=== PATIENT | male | born 1965 | race Caucasian/White ===

== ENCOUNTER → 2020-03-17 15:01 | Outpatient (POV) | payer MEDICARE, SELFPAY ==
[2020-03-17 15:14] VITALS: BP 184/99; PULSE 91; RESP 20; TEMP 36.5; O2SAT 99; BMI 38.9
--- NOTE | 2020-03-17 15:25 | HMH.PMCON ---
Assessment and Plan (1) Bilateral shoulder pain Status: Chronic Category: Medical Code(s): M25.511 - Pain in right shoulder; M25.512 - Pain in left shoulder - Assessment and plan all Dx Assessment and Plan for all problems:: Patient has had anterior intra-articular shoulder injections in the past and has gotten great relief. He does report that the previous injections that he got posteriorly did not give him any relief. We will schedule him for intra-articular shoulder injections bilaterally. He is having some numbness and tingling into his left arm. He does report a history of neuropathy, however. We will perform the injections bilaterally and if the patient does not get relief, he will likely need to undergo a MRI of his cervical spine. We will follow-up with him after his injection to reassess his symptoms. Patient cannot take anti-inflammatories due to an allergy to anti-inflammatories. He will continue with home stretching program. We will see him back in the clinic after his injection to reassess his symptoms. Risks and benefits of the procedure have been explained to the patient. Patient would like to proceed with the procedure. The patient and I specifically discussed risk factors for COVID19. These risks include, but are not limited to age greater than 60, heart or lung disease, diabetes, immunosuppression, and travel. We also discussed NSAIDs may worsen COVID19 infection or symptoms. Patient should not use NSAIDs to treat COVID19 signs or symptoms. Patient was also informed that any type of corticosteroid of any form (oral or injection) will decrease the patient's immune system response and may increase the likelihood of COVID19 infection [address] symptoms[address] Dr. Paredes has reviewed this note and agrees with this plan of care. This note was dictated using voice recognition software and make contain errors or omissions. HPI - Data of Consult Patient: new to practice Consult date: 03/17/20 Requesting Physician: Gabrielle Garcia APRN Primary Care Provider: Sadie Stapleton - Consult Narrative Reason for consult: Bilateral shoulder pain History of present illness: Mr. Alcantar is a 55 year old male who presents today for consultation for bilateral shoulder pain. Patient says he has had shoulder pain for years. He says that he did undergo injections that were performed anteriorly. He says that he got up to 90% relief with these injections. He says he was diagnosed with frozen shoulder syndrome at that time. Most recently, the patient did undergo bilateral intra-articular shoulder injections that were performed at Dr. Moffett's office. He says these injections were performed posteriorly. Patient says he did not get any relief, and in fact, says his pain worsened. He rates his pain a 9 out of 10 on the left shoulder. He does have right shoulder pain as well. He says he is having difficulty raising his arms. He is having some numbness and tingling into his left arm radiating into his hand. Patient is diabetic and does have a history of peripheral neuropathy. Patient says he is unsure if his numbness and tingling in his arm is related to neuropathy or if it is coming from his shoulder. He has not had an MRI of his cervical spine. He did have an x-ray of his shoulder. Patient was not noted to have any type of fracture or dislocation. He has tried physical therapy in the past along with a continued home stretching program. Patient is unable to take anti-inflammatories due to an allergy. CC: Gabrielle Garcia APRN [facility] History I have reviewed the patient's past medical history: Yes Medical History: Reports:: Diabetes Mellitus Type 2, Hypertension Denies:: Cancer, Diabetes Mellitus Type 1, MRSA *Have you ever received a pneumonia vaccine?: Yes *Have you received a flu vaccine this season?: No Other Surgeries: Yes: Other (left toe amputation, gangrene) Amputation: Yes Fractures: No - *Social History Smoking Status: Current
== END ==
PROVIDERS: PCP Family Medicine; Referring Provider Family Medicine; Visit Provider Clinical Nurse Specialist Family Health
DX: M25.511 Pain in right shoulder (principal); M25.512 Pain in left shoulder
CPT/HCPCS: 99202

== ENCOUNTER → 2020-04-04 13:46 | Day surgery (SDC) | payer MEDICARE, MEDICAID, SELFPAY ==
[2020-04-04 13:54] VITALS: BP 127/85; PULSE 92; RESP 18; TEMP 36.4; O2SAT 98; BMI 38.9
--- NOTE | 2020-04-04 14:24 | P.CONS_ITS ---
[facility] Pain Management SOAP Note Subjective:: Patient presented today for shoulder injections. However patient's current fingerstick blood sugar is 497. He has not taken his insulin today. I discussed with him that we would not move forward with his injection until it is his sugars under control. We will see him back and check his sugar again. Patient is agreeable [facility] History Medical History: Reports:: Congestive Heart Failure, Diabetes Mellitus Type 2, Hyperlipidemia, Hypertension Denies:: Cancer, Diabetes Mellitus Type 1, MRSA, Seizures *Have you ever received a pneumonia vaccine?: No *Have you received a flu vaccine this season?: No Other Medical History: Denies: Blood Transfusion Reaction Other Surgeries: Yes: Other (left toe amputation, gangrene) Amputation: Yes Fractures: No - *Social History Smoking Status: Current every day smoker Tobacco Type: cigarettes # Packs/Day (cigarettes): 1 Alcohol Intake: never *Occupational Status:: disabled Housing: house Household Members: spouse *Travel in the last 8 weeks: None Family Hx:: No significant family history
[2020-04-04 15:35] LABS: POC Glucose,Bedside 497 (70-110)
== END ==
PROVIDERS: PCP Family Medicine; Visit Provider Clinical Nurse Specialist Family Health
DX: Z53.09 Procedure and treatment not carried out because of other contraindication (principal); E11.65 Type 2 diabetes mellitus with hyperglycemia; Z79.4 Long term (current) use of insulin; Z79.84 Long term (current) use of oral hypoglycemic drugs; I11.0 Hypertensive heart disease with heart failure; I50.9 Heart failure, unspecified; E78.5 Hyperlipidemia, unspecified; Z72.0 Tobacco use; Z88.0 Allergy status to penicillin; Z88.1 Allergy status to other antibiotic agents; Z88.6 Allergy status to analgesic agent; Z88.8 Allergy status to other drugs, medicaments and biological substances
CPT/HCPCS: 20610; 82962

== ENCOUNTER 2020-04-08 13:14 | Day surgery (SDC) | payer MEDICARE, MEDICAID, SELFPAY ==
[2020-04-08 13:30] VITALS: BP 148/83; PULSE 92; RESP 18; TEMP 36.4; O2SAT 98; BMI 38.9
[2020-04-08 14:05] VITALS: BP 142/78; PULSE 85; RESP 18; O2SAT 98
[2020-04-08 14:05] LABS: POC Glucose,Bedside 147 (70-110)
[2020-04-08 14:06] VITALS: BP 138/85; PULSE 89; RESP 18; O2SAT 98
--- NOTE | 2020-04-08 14:07 | P.PCN_ITS ---
- Procedure Date: 04/08/20 Time: 14:07 Anesthesiologist:: Shmuel Paredes MD Complications:: None Pre-procedure Diagnosis:: Bilateral shoulder pain with degenerative osteoarthritis both shoulders Post-procedure Diagnosis:: Same Indications for Procedure:: This patient is a pleasant 55-year-old white male who we are treating for bilateral shoulder pain with degenerative osteoarthritis both shoulders. We will do bilateral intra-articular shoulder injections today with suprascapular nerve blocks to help him with his shoulder pain Procedure Details:: Bilateral shoulder injections intra-articular and bilateral suprascapular nerve block Informed consent was obtained and the risk and benefits of the procedure were explained to the patient. Both shoulders were prepped using ChloraPrep. A 25- gauge needle was used and we injected 10 mL bupivacaine 0.25% and Depo-Medrol 40 mg into the area of the suprascapular nerve and into the shoulder joint of each shoulder. We used a total of 80 mg Depo-Medrol for both shoulders. Patient tolerated the procedure well with no complications. Plan and Disposition:: We will follow-up with this patient 2 weeks. Will reevaluate symptoms at that time.
[2020-04-08 14:17] VITALS: BP 137/73; PULSE 88; RESP 20; O2SAT 98
== END 2020-04-08 14:18 | disposition home or self-care (01) ==
LOC: SC.PAINP 13:15
PROVIDERS: PCP Family Medicine; Visit Provider Anesthesiology
DX: M19.011 Primary osteoarthritis, right shoulder; M19.012 Primary osteoarthritis, left shoulder; I10 Essential (primary) hypertension; E11.9 Type 2 diabetes mellitus without complications; Z72.0 Tobacco use; M51.36 Other intervertebral disc degeneration, lumbar region; Z87.39 Personal history of other diseases of the musculoskeletal system and connective tissue; Z89.421 Acquired absence of other right toe(s); Z88.0 Allergy status to penicillin; Z88.1 Allergy status to other antibiotic agents; Z88.6 Allergy status to analgesic agent; Z79.4 Long term (current) use of insulin
CPT/HCPCS: 20610; 82962; J1030

== ENCOUNTER → 2020-04-26 15:01 | Outpatient (CLI) | payer MEDICARE, MEDICAID, SELFPAY ==
--- NOTE | 2020-04-26 15:24 | XR_ITS ---
PROCEDURE: XR FOOT WT BEARING RT 3V CLINICAL INDICATION: wound, diabetic Open wound COMPARISON: No exams were available for comparison FINDINGS: S/p amputation at the mid aspect of the 5th metatarsal. There is some cortical thickening involving the proximal phalanx of the 4th toe which may be due to an old fracture. No acute fracture or dislocation. No lytic or blastic change. The joint spaces are well-preserved. No significant degenerative/arthritic changes. No erosive changes evident. Other findings:None. IMPRESSION: Prior amputation at the 5th metatarsal with possible old fracture of the proximal phalanx of the 4th toe Dictated by: Jung Mary MD 04/26/2020 15:59 Jung Mary MD in [place] 04/26/2020 15:59
[2020-04-26 15:58] LABS: Basophils # 0.1 K/mm3 (0-0.2); Basophils % 0.5 % (0.1-2.0); Eosinophils # 0.2 K/mm3 (0.0-0.4); Eosinophils % 2.1 % (0.1-12.0); Hematocrit 49.2 % (42.0-52.0); Lymphocytes # 2.1 K/mm3 (0.7-4.5); Lymphocytes % 22.6 % (10-50); Mean Corpuscular HGB Conc 32.6 g/dL (31.8-35.4); Mean Corpuscular Hemoglobin 30.4 pg (27.0-31.2); Mean Corpuscular Volume 93.2 fl (80-94); Mean Platelet Volume 10.5 fl (7.4-10.4); Monocytes # 0.5 K/mm3 (0.1-1.0); Monocytes % 4.9 % (1.7-9.3); Neutrophils # 6.5 K/mm3 (1.8-7.8); Neutrophils % 69.9 % (37.0-80.0); Platelet Count 133 K/mm3 (142-424); Red Blood Count 5.28 M/mm3 (4.60-6.20); Red Cell Distribution Width 14.3 % (11.5-17.5); White Blood Count 9.3 K/mm3 (4.8-10.8)
[2020-04-26 16:04] LABS: Hemoglobin A1C 10.4 % (4.0-6.0)
[2020-04-26 16:45] LABS: Alanine Aminotransferase 18 U/L (12-78); Albumin Level 4.5 g/dl (3.5-5.0); Albumin/Globulin Ratio 1.3 (1.1-1.8); Alkaline Phosphatase 123 U/L (38-126); Anion Gap 16.7 mEq/L (5-15); Aspartate Amino Transferase 20 U/L (17-59); Bilirubin,Total 0.5 mg/dl (0.2-1.3); Blood Urea Nitrogen 31 mg/dl (9-20); Calcium 10.4 mg/dl (8.4-10.2); Carbon Dioxide 27 mmol/L (22.0-30.0); Chloride 99 mmol/L (98-107); Chol/HDL Ratio 4.9 (1-3.5); Cholesterol 257 mg/dl (140-200); Estimated Glomerular Filt Rate 63 ml/min (>60); GFR (African American) 76 ML/MIN (>60); Globulin 3.4 g/dL (1.3-3.2); Glucose 192 mg/dl (74-100); HDL Cholesterol 52 mg/dl (40-60); Potassium 4.7 mmoL/L (3.5-5.1); Sodium 138 mmol/L (136-145); Total Protein,Serum 7.9 g/dl (6.3-8.2); Triglycerides 194 mg/dl (30-150); VLDL Cholesterol 39 mg/dL (0-40)
[2020-04-26 16:56] LABS: Direct LDL Cholesterol 177.95 mg/dL (100-129)
[2020-04-27 16:17] LABS: C-Reactive Protein 31.6 mg/L (0-4)
== END ==
PROVIDERS: Podiatrist; Visit Provider Family Medicine
DX: E13.621 Other specified diabetes mellitus with foot ulcer; E78.5 Hyperlipidemia, unspecified; I10 Essential (primary) hypertension; Z79.4 Long term (current) use of insulin; Z51.89 Encounter for other specified aftercare
CPT/HCPCS: 36415; 73630; 80053; 80061; 83036; 85025; 86140

== ENCOUNTER → 2020-04-27 13:54 | Outpatient (CLI) | payer MEDICARE, MEDICAID, SELFPAY ==
[2020-04-27 14:35] LABS: Creatinine,Urine Random 84 mg/dL (Not Estab.)
== END ==
PROVIDERS: Visit Provider Family Medicine
DX: Z51.89 Encounter for other specified aftercare (principal); E11.621 Type 2 diabetes mellitus with foot ulcer; L97.514 Non-pressure chronic ulcer of other part of right foot with necrosis of bone
CPT/HCPCS: 82043; 82570; 87070; 87077; 87186; 87205

== ENCOUNTER → 2020-05-03 11:06 | Outpatient (CLI) | payer MEDICARE, MEDICAID, SELFPAY ==
--- NOTE | 2020-05-03 11:07 | MR_ITS ---
PROCEDURE: MR FOOT RT WO/W CON CLINICAL INDICATION: non healing wound non healing ulcer proximal to rt great toe. Pt is a diabetic and has hx of rt 5th metatarsal removed in 1999. COMPARISON: CR XR FOOT WT BEARING RT 3V from 04/26/2020 TECHNIQUE: Routine multiplanar multi echo sequences are performed without and with gadolinium enhancement. FINDINGS: Ulceration is noted within the soft tissues along the medial aspect at the head of the 1st metatarsal. There is some soft tissue swelling in this region. No obvious abscess or sinus tract evident. There is a focal area of decreased T1 and increased STIR signal along with contrast enhancement involving the head of the 1st metatarsal medially. This may be related to reactive change from the underlying cellulitis or an area of osteomyelitis. The bony cortex appears intact. This area measures approximately 14 by 8 mm. There is also a small area of increased T2 signal with enhancement involving the proximal and medial aspect of the proximal phalanx of the great toe. There has been amputation at the midshaft of the 5th metatarsal. Hammertoe deformity involves the second 3rd and 4th toes. No other significant anomalies are evident. IMPRESSION: The focal decreased T1 and increased T2 signal involves the distal and medial aspect of the 1st metatarsal and the proximal and medial aspect of the proximal phalanx of the great toe. The cortex of these areas appears intact. This could be related to reactive edema from overlying cellulitis or osteomyelitis. Ulceration is present just superficial to the area of signal alteration at the head of the 1st metatarsal. Soft tissue swelling present medially consistent with cellulitis. Dictated by: Jung Mary MD 05/04/2020 16:43 Jung Mary MD in [place] 05/04/2020 16:43
--- NOTE | 2020-05-03 13:03 | US_ITS ---
APPROVED REPORT Exam Type: Ankle to Brachial Index Supervisor Wood Room: Hetal Miller RCS, RVS Indications Claudication: Non-healing Ulcer: Left Current Smoker History of Smoking Risk Factors Hypertension Hyperlipidemia Obesity Diabetes Current Smoker Pressures/Indices Right Indices Left Indices Brachial 120.00 mmHg Brachial 124.00 mmHg Low Thigh 160.00 mmHg 1.29 Low Thigh 153.00 mmHg 1.23 Calf 121.00 mmHg 0.98 Calf 128.00 mmHg 1.03 Ankle(PT) 136.00 mmHg 1.10 Ankle(PT) 127.00 mmHg 1.02 Ankle(DP) 129.00 mmHg 1.04 Ankle(DP) 131.00 mmHg 1.06 Digit 126.00 mmHg 1.02 Digit 141.00 mmHg 1.14 Findings RT ESTRELLA=1.1 LT ESTRELLA=1.06 RT TPI=1.02 LT ESTRELLA=1.14 No Gross evidence of occlussive peripheral arterial disease. Conclusion RT ESTRELLA=1.1 LT ESTRELLA=1.06 RT TPI=1.02 LT ESTRELLA=1.14 No Gross evidence of occlussive peripheral arterial disease. Electronically signed by : Jung Mary MD 05/03/2020 17:04:50
--- NOTE | 2020-05-03 18:20 | ECG_ITS ---
APPROVED REPORT Exam: Resting ECG HR:84 bpm ECG Measurements Heart Rate 84 AXES QRSd 80 QRS 58 QT 362 T 53 QTc 427 Conclusion Accelerated Junctional rhythm T wave abnormality, consider lateral ischemia Abnormal ECG Electronically signed by : Marques Cueto, 05/04/2020 13:50:03
== END ==
PROVIDERS: PCP Family Medicine; Visit Provider Podiatrist
DX: L97.512 Non-pressure chronic ulcer of other part of right foot with fat layer exposed; Z79.4 Long term (current) use of insulin; Z51.89 Encounter for other specified aftercare; R09.89 Other specified symptoms and signs involving the circulatory and respiratory systems; E11.621 Type 2 diabetes mellitus with foot ulcer
CPT/HCPCS: 73720; 93005; 93923; A9576

== ENCOUNTER → 2020-05-03 17:43 | Outpatient (CLI) | payer MEDICARE, MEDICAID, SELFPAY | PROVIDERS: PCP Family Medicine; Visit Provider Podiatrist | DX: L97.512 Non-pressure chronic ulcer of other part of right foot with fat layer exposed (principal) ==

== ENCOUNTER → 2020-05-04 15:48 | Outpatient (CLI) | payer MEDICARE, MEDICAID, SELFPAY ==
--- NOTE | 2020-05-04 16:10 | XR_ITS ---
PROCEDURE: XR CHEST 2V CLINICAL HISTORY: SOB Shortness of breath COMPARISON: No exams were available for comparison FINDINGS: The cardiomediastinal silhouette and pulmonary vascularity are within normal limits. The lungs are clear without infiltrates, suspicious nodules, or pleural effusions. No acute bony abnormalities. IMPRESSION: No acute findings. Dictated by: Jung aMry MD 05/04/2020 16:45 Jung Mary MD in [place] 05/04/2020 16:45
[2020-05-04 17:52] LABS: Erythrocyte Sedimentation Rate 69 mm/hr (0-20)
[2020-05-04 19:19] LABS: C-Reactive Protein 7.8 mg/L (0-4)
[2020-05-04 19:55] LABS: Coronavirus 19 IgG Antibody Negative (Negative); Coronavirus 19 IgM Antibody Negative (Negative)
== END ==
PROVIDERS: Visit Provider Podiatrist
DX: Z51.89 Encounter for other specified aftercare (principal); Z01.812 Encounter for preprocedural laboratory examination; Z20.822 Contact with and (suspected) exposure to COVID-19; E11.621 Type 2 diabetes mellitus with foot ulcer; L97.514 Non-pressure chronic ulcer of other part of right foot with necrosis of bone
CPT/HCPCS: 36415; 71046; 85651; 86140; 86328

== ENCOUNTER 2020-05-05 06:18 | Day surgery (SDC) | payer MEDICARE, MEDICAID, SELFPAY ==
[2020-05-04 10:53] VITALS: BMI 37.3
[2020-05-05 06:43] VITALS: BP 139/77; PULSE 98; RESP 20; TEMP 36.5; O2SAT 97
--- NOTE | 2020-05-05 07:05 | PC.NURSE ---
dr Huertas made aware of pt sipping pop at 550 this am
[2020-05-05 07:10] LABS: POC Glucose,Bedside 144 (70-110)
--- NOTE | 2020-05-05 07:24 | HMH.OPNOTE ---
Date of procedure: 05/05/20 Pre-op Diagnosis:: 1. Right diabetic foot infection 2. Right 1st metatarsal ulcer 3. Right foot osteomyelitis 4. Right foot cellulitis Post-op Diagnosis:: Same Procedure performed:: 1. Right foot irrigation and debridement 2. Right partial first metatarsal resection/amputation (bone biopsy) 3. Right diabetic ulcer excision 4. Right Right foot derotational skin flap 5. Right sub 5th metatarsal callus debridement Surgeon:: Alyson Huertas DPM [employer] INSPECTOR:: Other (Lucio Cruz) Anesthesia: MAC, local (20cc 0.5% marcaine plain) Estimated blood loss (mL): 30 Clinical Note:: Patient is a 55-year-old male who presents with right diabetic foot infection. He has had a previous partial fifth ray amputation in the past. Patient presents with left hallux cellulitis and ulcer with exposed tendon. Radiographs and MRI of the right foot taken 05/03/20, 04/26/20 were reviewed and discussed with the patient. X-rays show: S/p amputation at the mid aspect of the 5th metatarsal. There is some cortical thickening involving the proximal phalanx of the 4th toe which may be due to an old fracture. No acute fracture or dislocation. No lytic or blastic change. The joint spaces are well-preserved. No significant degenerative/arthritic changes. No erosive changes evident. IMPRESSION: Prior amputation at the 5th metatarsal with possible old fracture of the proximal phalanx of the 4th toe. MRI: Report finding IMPRESSION: The focal decreased T1 and increased T2 signal involves the distal and medial aspect of the 1st metatarsal and the proximal and medial aspect of the proximal phalanx of the great toe. The cortex of these areas appears intact. This could be related to reactive edema from overlying cellulitis or osteomyelitis. Ulceration is present just superficial to the area of signal alteration at the head of the 1st metatarsal. Soft tissue swelling present medially consistent with cellulitis.g. Based on my clinical findings and MRI review I suspect osteomyelitis of the first metatarsal head and proximal phalanx. There appears to be soft swelling and inflammation around the first MPJ. We discussed conservative versus surgical treatment options. Conservative treatment options include local wound care, oral and IV antibiotics, change in shoe wear, taping/padding, and off-loading. Discussed that patient would benefit from a wider and deeper shoe wear to accommodate the deformity. We discussed surgical intervention for amputation of the right hallux and first partial metatarsal. Patient understands that there is a chance that the toes can migrate to fill the gap or the foot may change shape after surgery. Patient also understands that they could have wound healing complications including delayed healing and infection. We discussed that if the wound does not heal, it is possible that they may need a more proximal amputation and could result in further loss of digits, loss of partial foot or loss of leg. We discussed the risks and benefits in great detail. Other surgical risks include: prolonged pain and swelling, further infection requiring oral or IV antibiotics, delay in healing of soft tissue or bone, nerve or blood vessel damage, CRPS/RSD, DVT, anesthesia complications, and even . All questions answered. Patient verbalized understanding. Consent obtained. Patient has a history of a right partial 5th ray amputation. He was on IV antibiotics and noticed several day admission around the time of surgery. Patient does not want IV antibiotics. We discussed PICC first oral antibiotics. Plan for IV antibiotics day of surgery. I Splane we can try oral antibiotics postoperatively x2 weeks. Patient and his understand if cellulitis worsens postoperatively, we will plan for PICC. PCP-Dr. Sadie Stapleton referred for surgery. Pre-op labs: ESR, CRP, Ha1c, CBC, CMP, EKG, CXR, covid. ABIs reviewed. Labs; 04/26/2020: wbc 9.3, glucose 192, A1c 10.4% crp 31.6 04/27/20, right foot wound culture: Pseu
[2020-05-05 08:46] VITALS: BP 150/95; PULSE 90; RESP 18; TEMP 36.4; O2SAT 94
--- NOTE | 2020-05-05 09:00 | XR_ITS ---
PROCEDURE: XR FOOT RT MIN 3V CLINICAL INDICATION: Post op amp Follow-up surgery COMPARISON: CR XR FOOT WT BEARING RT 3V from 04/26/2020 FINDINGS: Status post amputation at the mid shaft of the 1st metatarsal. Postsurgical gas is present. There has been an old amputation at the mid shaft of the 5th metatarsal. IMPRESSION: Postsurgical changes from recent amputation at the mid shaft of the 1st metatarsal and old amputation midshaft 5th metatarsal Dictated by: Jung Mary MD 05/05/2020 13:20 Jung Mary MD in [place] 05/05/2020 13:20
[2020-05-05 09:01] VITALS: BP 128/78; PULSE 88; RESP 18; TEMP 36.4; O2SAT 92
[2020-05-05 09:16] VITALS: BP 141/87; PULSE 88; RESP 18; TEMP 36.4; O2SAT 97
--- NOTE | 2020-05-05 09:27 | HMH.ANESCL ---
[facility] Anesthesia Checklist - Patient Identification Patient Identification: Arm Band, Verbal (Name & ) - Structural Data Admitted From: Home Planned Operative Procedure/s: Right GREAT TO AMPUTATION Consent for Planned Operative Procedure(s) Verified: Yes Verified Documents: Surgical Consent - Additional verifications Anesthesia Reactions: No Hx Blood Transfusions: No Blood Transfusion Reaction: No - Airway Assessment Dentition: Poor Dentition - Anesthesia Plan Anesthesia Risk discussed: Yes Anesthesia Plan: Verified ASA Class: III Anesthesia Type: Local & MAC [facility] History Medical History: Reports:: Congestive Heart Failure, Diabetes Mellitus Type 2, Hyperlipidemia, Hypertension Denies:: Cancer, Diabetes Mellitus Type 1, MRSA, Seizures *Have you ever received a pneumonia vaccine?: No *Have you received a flu vaccine this season?: Yes Other Medical History: Denies: Blood Transfusion Reaction Anesthesia experience/problems:: NONE Other Surgeries: Yes: Colonoscopy, Other Amputation: Yes Fractures: No - *Social History Last grade of school completed: 9th or 10th Smoking Status: Current every day smoker Tobacco Type: cigarettes # Packs/Day (cigarettes): 1 Alcohol Intake: never Substance Use Type: denies use *Occupational Status:: unemployed Housing: house Household Members: spouse *Travel in the last 8 weeks: None Family Hx:: No significant family history
== END 2020-05-05 09:16 | disposition home or self-care (01) ==
LOC: OR 06:18
PROVIDERS: PCP Family Medicine; Visit Provider Podiatrist
PROC: (CPT 28820; principal; 2020-05-05 07:30)
DX: E11.621 Type 2 diabetes mellitus with foot ulcer (principal); L97.514 Non-pressure chronic ulcer of other part of right foot with necrosis of bone; I11.0 Hypertensive heart disease with heart failure; I50.9 Heart failure, unspecified; Z72.0 Tobacco use; Z89.421 Acquired absence of other right toe(s); L03.115 Cellulitis of right lower limb; E03.9 Hypothyroidism, unspecified; Z79.4 Long term (current) use of insulin; Z88.0 Allergy status to penicillin; Z88.5 Allergy status to narcotic agent; Z88.8 Allergy status to other drugs, medicaments and biological substances; Z79.899 Other long term (current) drug therapy; B95.1 Streptococcus, group B, as the cause of diseases classified elsewhere; B95.7 Other staphylococcus as the cause of diseases classified elsewhere; E11.42 Type 2 diabetes mellitus with diabetic polyneuropathy; L84 Corns and callosities
CPT/HCPCS: 28820; 73630; 82962; 87070; 87077; 87186; 87205; 88305; 88311; 96374; J1956; J2405

== ENCOUNTER → 2020-05-09 14:12 | Outpatient (POV) | payer MEDICARE, MEDICAID, SELFPAY ==
--- NOTE | 2020-05-09 14:45 | HMH.PAINSOAP ---
[facility] Pain Management SOAP Note Subjective:: Is a pleasant 55-year-old white male who presents today for follow-up after bilateral shoulder injections. Patient did not get much relief from it. Patient states that his pain is mostly in his neck at this time. Patient has radiation of the pain into his shoulders. Patient and I discussed a cervical epidural steroid injection he would like to move forward with this. He is tried anti-inflammatories. Patient just recently had foot surgery and is currently on antibiotics I discussed with him that we would not be able to move forward until he was finishes antibiotics. Patient understands. He rates his pain today at 8 out of 10 ROS General: no recent weight change, no fever, no sleep disturbances Respiratory: no cough, no shortness of air, no recurring pulmonary infections Cardiovascular/Peripheral Vascular: No chest pain, No palpitations, no edema, no shortness of breath. Gastrointestinal: no new onset incontinence, normal bowel movements reported Genitourinary: no new onset incontinence Musculoskeletal: Neck pain, arm pain Psychiatric: normal mood/ affect Neurological: [denies new onset weakness in extremities], [denies new onset balance issues] Objective:: Physical Exam General: Alert and oriented x3, no acute distress, pleasant and cooperative, [on room air] Lungs: Resps E/U, Symmetrical chest expansion, Eyes: PERRL Musculoskeletal: Flexion and extension of cervical spine somewhat guarded secondary to pain, deep tendon reflexes normal, strength in upper and lower extremities [5/5], [abnormal gait noted] Neurological: speech clear, geek squad manager equal, no gross sensory deficits Assessment:: Neck pain, degenerative disc disease cervical spine with cervical radiculopathy Plan:: We will set up for C5-C6 cervical epidural steroid injection given the patient symptomology I do believe it would be beneficial for him. Patient is currently on anti-inflammatories with no real success. Patient currently on antibiotics we discussed that he would have to be off of this prior to any injective therapy. Patient understands. I will follow-up with him after this reassess his symptoms at that time he has been instructed to call the office if he has any issues prior to his next appointment. Dr. Paredes has reviewed this note and agrees with this plan of care. This note was dictated using voice recognition software and may contain errors or omissions [facility] History I have reviewed the patient's past medical history: Yes Medical History: Reports:: Congestive Heart Failure, Diabetes Mellitus Type 2, Hyperlipidemia, Hypertension Denies:: Cancer, Diabetes Mellitus Type 1, MRSA, Seizures *Have you ever received a pneumonia vaccine?: No *Have you received a flu vaccine this season?: Yes Other Medical History: Denies: Blood Transfusion Reaction Other Surgeries: Yes: Colonoscopy, Other Amputation: Yes Fractures: No - *Social History Smoking Status: Current every day smoker Tobacco Type: cigarettes # Packs/Day (cigarettes): 1 Alcohol Intake: never Substance Use Type: denies use *Occupational Status:: unemployed Housing: house Household Members: spouse *Travel in the last 8 weeks: None Family Hx:: No significant family history
== END ==
PROVIDERS: PCP Family Medicine; Visit Provider Clinical Nurse Specialist Family Health
DX: M50.10 Cervical disc disorder with radiculopathy, unspecified cervical region (principal)
CPT/HCPCS: 99212; G0463

== ENCOUNTER → 2020-06-02 13:12 | Outpatient (CLI) | payer MEDICARE, MEDICAID, SELFPAY ==
[2020-06-02 13:51] LABS: Basophils # 0.1 K/mm3 (0-0.2); Basophils % 0.8 % (0.1-2.0); Eosinophils # 0.4 K/mm3 (0.0-0.4); Eosinophils % 5.4 % (0.1-12.0); Hematocrit 46.4 % (42.0-52.0); Hemoglobin 14.9 g/dL (14.1-18.0); Lymphocytes # 2.1 K/mm3 (0.7-4.5); Lymphocytes % 28.4 % (10-50); Mean Corpuscular HGB Conc 32.1 g/dL (31.8-35.4); Mean Corpuscular Hemoglobin 30.1 pg (27.0-31.2); Mean Corpuscular Volume 93.7 fl (80-94); Mean Platelet Volume 10.3 fl (7.4-10.4); Monocytes # 0.3 K/mm3 (0.1-1.0); Monocytes % 4.7 % (1.7-9.3); Neutrophils # 4.4 K/mm3 (1.8-7.8); Neutrophils % 60.7 % (37.0-80.0); Platelet Count 127 K/mm3 (142-424); Red Blood Count 4.96 M/mm3 (4.60-6.20); Red Cell Distribution Width 14.9 % (11.5-17.5); White Blood Count 7.2 K/mm3 (4.8-10.8)
[2020-06-02 14:24] LABS: Erythrocyte Sedimentation Rate 15 mm/hr (0-20)
[2020-06-02 14:50] LABS: Alanine Aminotransferase 20 U/L (12-78); Albumin Level 4.7 g/dl (3.5-5.0); Albumin/Globulin Ratio 1.5 (1.1-1.8); Alkaline Phosphatase 80 U/L (38-126); Anion Gap 14.7 mEq/L (5-15); Aspartate Amino Transferase 25 U/L (17-59); Bilirubin,Total 0.7 mg/dl (0.2-1.3); Blood Urea Nitrogen 18 mg/dl (9-20); Calcium 10.2 mg/dl (8.4-10.2); Carbon Dioxide 25 mmol/L (22.0-30.0); Chloride 104 mmol/L (98-107); Estimated Glomerular Filt Rate 69 ml/min (>60); GFR (African American) 84 ML/MIN (>60); Globulin 3.1 g/dL (1.3-3.2); Glucose 116 mg/dl (74-100); Potassium 4.7 mmoL/L (3.5-5.1); Sodium 139 mmol/L (136-145); Total Protein,Serum 7.8 g/dl (6.3-8.2)
[2020-06-02 15:00] LABS: C-Reactive Protein 4.9 mg/L (0-4)
== END ==
PROVIDERS: Visit Provider Podiatrist
DX: M25.511 Pain in right shoulder (principal); M25.512 Pain in left shoulder; Z98.890 Other specified postprocedural states
CPT/HCPCS: 36415; 80053; 85025; 85651; 86140

== ENCOUNTER → 2020-06-10 12:42 | Outpatient (CLI) | payer MEDICARE, MEDICAID, SELFPAY ==
--- NOTE | 2020-06-10 12:46 | MR_ITS ---
PROCEDURE: MR CERVICAL SPINE WO CON CLINICAL INDICATION: NECK PAIN PT C/O neck pain with no known trauma or injury. PT also C/O limited ROM upper extremity. COMPARISON: No exams were available for comparison TECHNIQUE: Standard multiplanar multiecho sequences are performed without contrast. 3-D MIP and myelographic images are also rendered and reviewed FINDINGS: There is normal alignment. The craniocervical junction has an unremarkable appearance. C2-C3: Unremarkable. C3-C4: Mild concentric bulging disc with some minimal flattening of the cord anteriorly with canal stenosis of 9 mm. C4-C5: Mild concentric bulging disc eccentric to the right with canal stenosis and flattening of the cord centrally and on the right. C5-C6: Degenerative disc disease with bulging disc/disc osteophyte complex slightly eccentric toward the left with mild flattening of the cord with bilateral lateral recess narrowing greater on the left. C6-C7: Left paracentral disc herniation with superior extrusion resulting in severe left lateral recess narrowing and left foraminal narrowing. The disc is extruded superiorly by approximately 9 mm. There is degenerative disc disease at this level. C7-T1: Unremarkable. Small linear area of increased T2 signal is present within the central aspect of the cord at C5-C6 and may be due to some mild gliotic change. The IMPRESSION: Abnormal MRI of the cervical spine with multilevel cervical degenerative disc disease with bulging disc and canal stenosis. Left paracentral disc herniation with superior extrusion is noted at C6-C7. Please see above for detailed description at each level. Suspect mild gliotic change centrally in the cord at C5-C6 Dictated by: Jung Mary MD 06/12/2020 09:58 Jung Mary MD in [place] 06/12/2020 09:58
== END ==
PROVIDERS: PCP Family Medicine; Visit Provider Anesthesiology
DX: M54.2 Cervicalgia (principal)
CPT/HCPCS: 72141; 76376

== ENCOUNTER → 2020-06-24 10:08 | Outpatient (POV) | payer MEDICARE, MEDICAID, SELFPAY ==
--- NOTE | 2020-06-24 10:47 | P.CONS_ITS ---
[facility] Pain Management SOAP Note Subjective:: This patient is a pleasant 55-year-old white male who has an MRI with significant degenerative changes and bulging disc at C3-C4, C4-C5, C5-C6 and C6- C7. He does have superior extrusion with left lateral recess narrowing and 9 mm canal stenosis at all levels. There is also mild flattening of the cord. Given these MRI findings we will refer him to a neurosurgeon. He also has some increasing right shoulder pain. We will obtain an MRI of the right shoulder to discern any pathology and possible rotator cuff tear. Objective:: Alert and oriented x3 no acute distress. Patient does have limited range of motion of the right arm unable to abduct greater than 90 degrees. There is no neurological changes. He does have increasing pain in the neck and shoulders. Assessment:: Degenerative disc disease of the cervical spine with cervical radiculopathy symptoms and bulging disc with canal stenosis and flattening of the cord anteriorly. Right shoulder pain Plan:: We will order neurosurgical evaluation because of his MRI findings and symptoms. We will also order an MRI of the right shoulder to discern any pathology and possible rotator cuff tear. [facility] History Medical History: Reports:: Congestive Heart Failure, Diabetes Mellitus Type 2, Hyperlipidemia, Hypertension Denies:: Cancer, Diabetes Mellitus Type 1, MRSA, Seizures *Have you ever received a pneumonia vaccine?: Yes *Have you received a flu vaccine this season?: Yes Other Medical History: Denies: Blood Transfusion Reaction Other Surgeries: Yes: Colonoscopy, Other Amputation: Yes Fractures: No - *Social History Smoking Status: Current every day smoker Tobacco Type: cigarettes # Packs/Day (cigarettes): 1 Alcohol Intake: never Substance Use Type: denies use *Occupational Status:: unemployed Housing: house Household Members: spouse *Travel in the last 8 weeks: Inside the [facility] Family Hx:: Diabetes, Cancer, Heart Attack, Stroke, Asthma, Hypertension, Hyperlipidemia, Thyroid Disorder
[2020-06-24 10:56] VITALS: BP 143/84; PULSE 83; RESP 20; O2SAT 99; BMI 38.0
== END ==
PROVIDERS: PCP Family Medicine; Visit Provider Anesthesiology
DX: M50.10 Cervical disc disorder with radiculopathy, unspecified cervical region (principal); M25.511 Pain in right shoulder; M50.20 Other cervical disc displacement, unspecified cervical region; M48.02 Spinal stenosis, cervical region
CPT/HCPCS: 99212; G0463

== ENCOUNTER → 2020-06-30 13:49 | Outpatient (CLI) | payer MEDICARE, MEDICAID, SELFPAY ==
--- NOTE | 2020-06-30 13:51 | XR_ITS ---
PROCEDURE: XR SHOULDER RT MIN 2V CLINICAL INDICATION: RT SHOULDER PAIN COMPARISON: No exams were available for comparison FINDINGS: No fracture or dislocation. No lytic or blastic change. There is normal mineralization. The joint spaces are well-preserved. No significant degenerative/arthritic changes. No erosive changes evident. Other findings:The visualized right hemithorax is unremarkable. IMPRESSION: No acute findings. Dictated by: Rin Phillip 06/30/2020 16:36 Rin Phillip in [place] 06/30/2020 16:36
== END ==
PROVIDERS: PCP Family Medicine; Visit Provider Clinical Nurse Specialist Family Health
DX: M25.511 Pain in right shoulder (principal)
CPT/HCPCS: 73030

== ENCOUNTER → 2020-07-08 14:12 | Outpatient (CLI) | payer MEDICARE, MEDICAID, SELFPAY ==
--- NOTE | 2020-07-08 14:28 | MR_ITS ---
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 Pt c/o rt shoulder pain and is unable to raise rt arm very much at all. Pt denies injury or trauma and had difficulty placing arm in position for scan. Rt shoulder x-rays done 06/30/2020. COMPARISON: CR XR SHOULDER RT MIN 2V from 06/30/2020 TECHNIQUE: Routine multiplanar multi echo sequences are performed without gadolinium enhancement. FINDINGS: There is complete tear of the supraspinatus and infraspinatus. There is retraction of musculotendinous fibers. The subscapularis and teres minor tendons are intact. No obvious labral tear. Mild subacromial stenosis. There is mild subacromial stenosis. Mild osteoarthritic changes noted the acromioclavicular and glenohumeral joint. No obvious labral tear. Bicipital tendon is in place. There is a small amount fluid around the bicipital tendon. Small shoulder joint effusion is noted. High-riding humeral head IMPRESSION: 1. Complete tear of the supraspinatus and infraspinatus tendons with retraction of the musculotendinous fibers. 2. Tenosynovitis of the bicipital tendon. 3. Mild osteoarthritic change of the acromioclavicular and glenohumeral joint with slightly high-riding humeral head Dictated by: Jung Mary MD 07/10/2020 08:45 Jung Mary MD in [place] 07/10/2020 08:45
== END ==
PROVIDERS: PCP Family Medicine; Visit Provider Anesthesiology
DX: M25.511 Pain in right shoulder (principal)
CPT/HCPCS: 73221

== ENCOUNTER 2020-07-27 11:41 | Day surgery (SDC) | payer MEDICARE, MEDICAID, SELFPAY ==
[2020-07-27] VITALS (10 sets, daily range): BP systolic 119–139; BP diastolic 55–82; PULSE 65–85; RESP 15–18; TEMP 36.6–37.1; O2SAT 92–97; BMI 38.0
[2020-07-27 12:15] LABS: Basophils % 0.3 % (0.1-2.0); Eosinophils # 0.1 K/mm3 (0.0-0.4); Eosinophils % 0.8 % (0.1-12.0); Hematocrit 44.9 % (42.0-52.0); Hemoglobin 14.3 g/dL (14.1-18.0); Lymphocytes % 18.7 % (10-50); Mean Corpuscular HGB Conc 31.8 g/dL (31.8-35.4); Mean Corpuscular Hemoglobin 29.2 pg (27.0-31.2); Mean Platelet Volume 10.3 fl (7.4-10.4); Monocytes # 0.6 K/mm3 (0.1-1.0); Monocytes % 5.4 % (1.7-9.3); Neutrophils # 8.1 K/mm3 (1.8-7.8); Neutrophils % 74.8 % (37.0-80.0); Platelet Count 149 K/mm3 (142-424); Red Blood Count 4.88 M/mm3 (4.60-6.20); Red Cell Distribution Width 13.8 % (11.5-17.5); White Blood Count 10.9 K/mm3 (4.8-10.8)
--- NOTE | 2020-07-27 12:19 | ECG_ITS ---
APPROVED REPORT Exam: Resting ECG HR:105 bpm ECG Measurements Heart Rate 105 AXES CA 160 P 48 QRSd 80 QRS 63 QT 338 T 51 QTc 446 Conclusion Sinus tachycardia with premature atrial complexes Otherwise normal ECG Electronically signed by : Marques Cueto, 07/28/2020 21:20:20
[2020-07-27 12:24] LABS: Alanine Aminotransferase 35 U/L (12-78); Albumin/Globulin Ratio 1.2 (1.1-1.8); Alkaline Phosphatase 122 U/L (38-126); Anion Gap 16.8 mEq/L (5-15); Aspartate Amino Transferase 23 U/L (17-59); Bilirubin,Total 0.7 mg/dl (0.2-1.3); Blood Urea Nitrogen 18 mg/dl (9-20); Calcium 9.8 mg/dl (8.4-10.2); Carbon Dioxide 24 mmol/L (22.0-30.0); Chloride 100 mmol/L (98-107); Estimated Glomerular Filt Rate 63 ml/min (>60); GFR (African American) 76 ML/MIN (>60); Globulin 3.4 g/dL (1.3-3.2); Glucose 348 mg/dl (74-100); Potassium 4.8 mmoL/L (3.5-5.1); Sodium 136 mmol/L (136-145); Total Protein,Serum 7.4 g/dl (6.3-8.2)
[2020-07-27 12:29] LABS: C-Reactive Protein 176.7 mg/L (0-4)
--- NOTE | 2020-07-27 12:31 | XR_ITS ---
PROCEDURE: XR CHEST 2V CLINICAL HISTORY: HTN,TYPE II DM COMPARISON: CR XR CHEST 2V from 05/04/2020 FINDINGS: The cardiomediastinal silhouette and pulmonary vascularity are within normal limits. The lungs are clear without infiltrates, suspicious nodules, or pleural effusions. No acute bony abnormalities. IMPRESSION: No acute findings. Dictated by: Jung Mary MD 07/27/2020 13:49 Jung Mary MD in [place] 07/27/2020 13:49
--- NOTE | 2020-07-27 12:51 | XR_ITS ---
PROCEDURE: XR FOOT RT MIN 3V CLINICAL INDICATION: pre-op Preop toe amputation COMPARISON: CR XR FOOT WT BEARING RT 3V from 04/26/2020 CR XR FOOT RT MIN 3V from 05/05/2020 FINDINGS: There is destruction with mild fragmentation at the tip of the distal phalanx of the 2nd toe with associated soft tissue gas consistent with osteomyelitis. Soft tissue gas may be related to gangrenous infection/abscess or gas within a wound. There has been prior amputation at the mid shaft of the 1st metatarsal and the mid to distal shaft of the 5th metatarsal. Soft tissue swelling is present at the 2nd digit. Other findings:None. IMPRESSION: Osteomyelitis of the tip of the distal phalanx of the 2nd toe. Gas is present in this region as well may be due to gas-forming infection or wound. Dictated by: Jung Mary MD 07/27/2020 13:54 Jung Mary MD in [place] 07/27/2020 13:54
[2020-07-27 13:27] LABS: Coronavirus 19 IgG Antibody Negative (Negative); Coronavirus 19 IgM Antibody Negative (Negative)
[2020-07-27 13:35] LABS: Erythrocyte Sedimentation Rate 117 mm/hr (0-20)
--- NOTE | 2020-07-27 13:36 | HMH.ANESCL ---
[facility] Anesthesia Checklist - Patient Identification Patient Identification: Arm Band - Structural Data Admitted From: Home Planned Operative Procedure/s: Transmetatarsal amputation Consent for Planned Operative Procedure(s) Verified: Yes - NPO Status Verified Time NPO: 10:30 (jone) - Additional verifications Anesthesia Reactions: No Hx Blood Transfusions: No Blood Transfusion Reaction: No - Airway Assessment C-Spine Mobility Assessed: Yes TMJ Mobility Assessed: Yes Dentition: Poor Dentition - Neurological Assessment Level of Consciousness: Awake, Alert Hx Seizures: No Numbness or tingling in extremities: Yes - Anesthesia Plan Anesthesia Risk discussed: Yes Anesthesia Plan: Verified ASA Class: III Anesthesia Type: General [facility] History I have reviewed the patient's past medical history: Yes Medical History: Reports:: Congestive Heart Failure, Diabetes Mellitus Type 2, Hyperlipidemia, Hypertension, MRSA Denies:: Cancer, Diabetes Mellitus Type 1, Internal Pacemaker, Seizures *Have you ever received a pneumonia vaccine?: Yes *Have you received a flu vaccine this season?: No Other Medical History: Denies: Blood Transfusion Reaction Anesthesia experience/problems:: None Other Surgeries: Yes: Colonoscopy, Other. No: Pacemaker Amputation: Yes Fractures: No - *Social History Smoking Status: Current every day smoker Tobacco Type: cigarettes # Packs/Day (cigarettes): 1 Alcohol Intake: never Substance Use Type: denies use *Occupational Status:: disabled Housing: house Household Members: spouse *Travel in the last 8 weeks: None Family Hx:: Diabetes, Cancer, Heart Attack, Stroke, Asthma, Hypertension, Hyperlipidemia, Thyroid Disorder
--- NOTE | 2020-07-27 15:11 | P.PN_ITS ---
[facility] [place] Anesthesia Record Part I Intake, IV Amount: 1,000 Estimated blood loss (mL): 20 Urine output (mL): 0 Blood Pressure: 125/56 SaO2: 97 Pulse Rate: 81 Respiratory Rate: 15 Temperature: 98.6 F Patient is:: Drowsy Stable to PACU at:: 15:09
--- NOTE | 2020-07-27 15:26 | HMH.OPNOTE ---
Date of procedure: 07/27/20 Pre-op Diagnosis:: 1. Left 2nd toe diabetic ulcer 2. Right foot cellulitis 3. 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 Right foot osteomyelitis 5. Right equinus deformity Post-op Diagnosis:: Same Procedure performed:: 1. Left 2nd toe wound debridement 2. Right transmetatarsal amputation 3. Right foot incision and drainage 4. Right tendo achilles lengthening Surgeon:: Alyson Huertas DPM [employer] MANAGER:: Other ([place]o) Anesthesia: LMA Estimated blood loss (mL): 20 Clinical Note:: Mr. Alcantar is a 55-year-old poorly controlled diabetic who presented to the outpatient clinic today. He was seen by the COMPRESSOR REPAIRER Viola banda. After evaluation she thought the patient needed urgent surgery for the gangrenous right second toe and cellulitis. Labs were taken. WBC 10.9, ESR 111, CRP 176.7 and glucose 348. Patient is noncompliant with his medications. EKG had PVC but no acute changes. PRE-OP AMPUTATION/INFECTION: Radiographs of the right foot were reviewed and discussed with the patient. Report noted. Impression: osteomyelitis of the tip of the distal phalanx of the 2nd toe. Gas is present in this region as well may be due to gas-forming infection or wound. We discussed conservative versus surgical treatment options. Conservative treatment options include local wound care, oral and IV antibiotics, change in shoe wear, taping/padding, and off-loading. [Discussed that patient would benefit from a wider and deeper shoe wear to accommodate the deformity. We discussed surgical intervention for amputation of the right toes and possible TMA. Patient understands that there is a chance that the foot may change shape after surgery. Patient also understands that they could have wound healing complications including delayed healing and infection. We discussed that if the wound does not heal, it is possible that they may need a more proximal amputation and could result in further loss of digits, loss of partial foot or loss of leg. We discussed the risks and benefits in great detail. Other surgical risks include: prolonged pain and swelling, further infection requiring oral or IV antibiotics, delay in healing of soft tissue or bone, nerve or blood vessel damage, CRPS/RSD, DVT, anesthesia complications, and even . All questions answered. Patient verbalized understanding. Consent obtained. Operative findings:: Left 2nd dorsal PIPJ toe ulcer with periwound cellulits. Post debridement sharply excisionally with 15' blade and curette thru skin and subq, the ulcer was 100% granular and measured 1.1x0.8x0.1cm. No purulence, malodor or deep signs of infection to left side. Right foot cellulitis. Right 2nd toe gangrene with toenail avulsing off. Skin sloughing off, obvious malodor. Purulence localized to 2nd toe. There was serosanginous drainage noted to the 2-3rd MPJ. Scar tissue to 1st and 5th previous amputation sites. The bases of the 2-4th toes were discolored with some cortical erosions. Suspicious for osteomyelitis. The infection did not track up the extensor or flexor tendons. Infection seem to be localized to the toes and distal MPJ. Operative note:: On this date and time patient was deemed an appropriate surgical candidate. With informed consent signed, the patient was taken to the operating theater. The patient was positioned supine. LMA anesthesia was induced. No tourniquet used. IV Daptomycin 1g and Levofloxacin 750mg given. Left 2nd toe wound debridement: The left extremity was prepped and draped in normal sterile fashion with Betadine. Attention was directed to the dorsal toe where an ulcer was noted. Utilizing a 15 blade the callus surrounding the wound was sharply debrided. Utilizing a 15 blade and curette the wound was debrided sharply sharply excisionally through skin into the subcu layer. Fibrotic tissue and biofilm was removed. Good bleeding was noted. 100% granular base was noted. Post debridement the wound measured 1.1x0.8x0.1cm, not to bone. N
[2020-07-27 15:34] LABS: POC Glucose,Bedside 311 (70-110)
--- NOTE | 2020-07-27 15:42 | XR_ITS ---
PROCEDURE: XR FOOT LT MIN 3V CLINICAL INDICATION: amputation COMPARISON: CR XR FOOT WT BEARING RT 3V from 04/26/2020 CR XR FOOT RT MIN 3V from 05/05/2020 CR XR FOOT RT MIN 3V from 07/27/2020 FINDINGS: No fracture or dislocation. No lytic or blastic change. There is normal mineralization. The joint spaces are well-preserved. No significant degenerative/arthritic changes. No erosive changes evident. Other findings:None. IMPRESSION: No acute findings. Dictated by: Jung Mary MD 07/27/2020 16:08 Jung Mary MD in [place] 07/27/2020 16:08
--- NOTE | 2020-07-27 15:42 | XR_ITS ---
PROCEDURE: XR FOOT RT MIN 3V CLINICAL INDICATION: amputation COMPARISON: CR XR FOOT WT BEARING RT 3V from 04/26/2020 CR XR FOOT RT MIN 3V from 05/05/2020 CR XR FOOT RT MIN 3V from 07/27/2020 FINDINGS: Status post amputation at the transmetatarsal region. Skin clips are present at the amputation stump. Small amount of gas is noted in the soft tissues. Small amount of soft tissue gas is noted along the distal calf posteriorly . IMPRESSION: Postsurgical changes from transmetatarsal amputation Dictated by: Jung Mary MD 07/27/2020 16:07 Jung Mary MD in [place] 07/27/2020 16:07
[2020-07-28 12:04] LABS: POC Glucose,Bedside 323 (70-110)
== END 2020-07-27 16:33 | disposition home or self-care (01) ==
PROVIDERS: PCP Family Medicine; Visit Provider Podiatrist
PROC: (CPT 28805; principal; 2020-07-27 12:30)
DX: E11.621 Type 2 diabetes mellitus with foot ulcer (principal); E11.52 Type 2 diabetes mellitus with diabetic peripheral angiopathy with gangrene; E11.40 Type 2 diabetes mellitus with diabetic neuropathy, unspecified; A48.0 Gas gangrene; Z79.4 Long term (current) use of insulin; I11.0 Hypertensive heart disease with heart failure; I50.9 Heart failure, unspecified; E78.5 Hyperlipidemia, unspecified; G62.9 Polyneuropathy, unspecified; Z89.421 Acquired absence of other right toe(s); L03.115 Cellulitis of right lower limb; L97.514 Non-pressure chronic ulcer of other part of right foot with necrosis of bone; B95.62 Methicillin resistant Staphylococcus aureus infection as the cause of diseases classified elsewhere; M67.01 Short Achilles tendon (acquired), right ankle
CPT/HCPCS: 28805; 11042; 27606; 36415; 71046; 73630; 80053; 82962; 85025; 85651; 86140; 86328; 87070; 87075; 87077; 87186; 87205; 88305; 88311; 93005; 96374; J0878; J1956

== ENCOUNTER → 2020-08-09 15:51 | Outpatient (CLI) | payer MEDICARE, MEDICAID, SELFPAY ==
--- NOTE | 2020-08-09 16:07 | XR_ITS ---
PROCEDURE: XR FOOT WT BEARING LT 3V CLINICAL INDICATION: 5th toe DM ulcer, cellulitis COMPARISON: CR XR FOOT RT MIN 3V from 05/05/2020 CR XR FOOT RT MIN 3V from 07/27/2020 CR XR FOOT RT MIN 3V from 07/27/2020 CR XR FOOT LT MIN 3V from 07/27/2020 FINDINGS: No acute fractures or dislocations. Bone density is normal. The visualized tarsals, metatarsals and phalanges are unremarkable. Minor soft tissue swelling of the lateral aspect of the foot. No bony abnormality is noted. IMPRESSION: No acute abnormality. Minor soft tissue swelling of lateral aspect of the foot. Dictated by: Rin Phillip 08/09/2020 16:41 Rin Phillip in [place] 08/09/2020 16:41
--- NOTE | 2020-08-09 16:07 | XR_ITS ---
PROCEDURE: XR FOOT WT BEARING RT 3V CLINICAL INDICATION: postop views COMPARISON: CR XR FOOT RT MIN 3V from 05/05/2020 CR XR FOOT RT MIN 3V from 07/27/2020 CR XR FOOT RT MIN 3V from 07/27/2020 CR XR FOOT LT MIN 3V from 07/27/2020 FINDINGS: Transmetatarsal amputation of the right foot is noted. There is lucency noted at the base of the 1st metatarsal, demonstrate no significant interval change compared to the prior study. The rest of the metatarsals, tarsals and phalanges are unremarkable. Soft tissue swelling adjacent to the amputation site. No significant foci of air noted. Surgical clips are noted. IMPRESSION: Transmetatarsal amputation of the right foot. Minor soft tissue swelling at the site of amputation. Dictated by: Rin Phillip 08/09/2020 16:37 Rin Phillip in [place] 08/09/2020 16:37
[2020-08-09 16:38] LABS: Basophils # 0.1 K/mm3 (0-0.2); Basophils % 0.4 % (0.1-2.0); Eosinophils # 0.1 K/mm3 (0.0-0.4); Eosinophils % 0.7 % (0.1-12.0); Hematocrit 42.4 % (42.0-52.0); Hemoglobin 13.4 g/dL (14.1-18.0); Lymphocytes # 1.4 K/mm3 (0.7-4.5); Lymphocytes % 10.8 % (10-50); Mean Corpuscular HGB Conc 31.6 g/dL (31.8-35.4); Mean Corpuscular Hemoglobin 28.9 pg (27.0-31.2); Mean Corpuscular Volume 91.4 fl (80-94); Mean Platelet Volume 9.3 fl (7.4-10.4); Monocytes # 0.8 K/mm3 (0.1-1.0); Monocytes % 5.7 % (1.7-9.3); Neutrophils # 10.9 K/mm3 (1.8-7.8); Neutrophils % 82.4 % (37.0-80.0); Platelet Count 227 K/mm3 (142-424); Red Blood Count 4.64 M/mm3 (4.60-6.20); Red Cell Distribution Width 13.8 % (11.5-17.5); White Blood Count 13.2 K/mm3 (4.8-10.8)
[2020-08-09 17:06] LABS: Erythrocyte Sedimentation Rate 53 mm/hr (0-20)
[2020-08-09 17:20] LABS: Chloride 97 mmol/L (98-107); Potassium 4.8 mmoL/L (3.5-5.1); Sodium 134 mmol/L (136-145)
[2020-08-09 17:23] LABS: Alanine Aminotransferase 19 U/L (12-78); Albumin Level 4.1 g/dl (3.5-5.0); Albumin/Globulin Ratio 1.4 (1.1-1.8); Alkaline Phosphatase 121 U/L (38-126); Anion Gap 16.8 mEq/L (5-15); Aspartate Amino Transferase 21 U/L (17-59); Bilirubin,Total 0.6 mg/dl (0.2-1.3); Blood Urea Nitrogen 16 mg/dl (9-20); Calcium 9.5 mg/dl (8.4-10.2); Carbon Dioxide 25 mmol/L (22.0-30.0); Estimated Glomerular Filt Rate 88 ml/min (>60); GFR (African American) 106 ML/MIN (>60); Glucose 166 mg/dl (74-100); Total Protein,Serum 7.1 g/dl (6.3-8.2)
[2020-08-09 17:29] LABS: C-Reactive Protein 122.8 mg/L (0-4)
== END ==
PROVIDERS: PCP Family Medicine; Visit Provider Nurse Practitioner
DX: Z98.890 Other specified postprocedural states (principal); M25.511 Pain in right shoulder; M25.512 Pain in left shoulder; E11.621 Type 2 diabetes mellitus with foot ulcer; L97.509 Non-pressure chronic ulcer of other part of unspecified foot with unspecified severity; Z79.4 Long term (current) use of insulin
CPT/HCPCS: 36415; 73630; 80053; 85025; 85651; 86140; 87070; 87077; 87186; 87205

== ENCOUNTER 2020-08-11 13:00 | Outpatient (CLI) | payer MEDICARE, MEDICAID, SELFPAY ==
[2020-08-11 13:28] VITALS: BMI 38.0
--- NOTE | 2020-08-11 13:50 | XR_ITS ---
PROCEDURE: XR CHEST PORTABLE PICC PLAC CLINICAL HISTORY: PICC line placement COMPARISON: CR XR CHEST 2V from 05/04/2020 CR XR CHEST 2V from 07/27/2020 FINDINGS: The cardiomediastinal silhouette and pulmonary vascularity are within normal limits. Left subclavian PICC line with its tip overlying the SVC is noted. The lungs are clear without infiltrates, suspicious nodules, or pleural effusions. Calcified granuloma in the right lower lobe. No acute bony abnormalities. IMPRESSION: No acute findings. Dictated by: Rin Phillip 08/11/2020 14:15 Rin Phillip in [place] 08/11/2020 14:15
[2020-08-11 14:31] VITALS: BP 124/62; PULSE 69; RESP 20; TEMP 36.8; O2SAT 98
[2020-08-11 15:01] VITALS: BP 118/68; PULSE 67; RESP 20; O2SAT 98
[2020-08-11 15:36] VITALS: BP 122/67; PULSE 70; RESP 20; O2SAT 98
== END 2020-08-11 15:36 | disposition home or self-care (01) ==
LOC: INF 13:19
PROVIDERS: Visit Provider Podiatrist
DX: M86.171 Other acute osteomyelitis, right ankle and foot (principal); Z89.421 Acquired absence of other right toe(s); Z89.431 Acquired absence of right foot
CPT/HCPCS: 36569; 71045; 96365; C1751; J0878

== ENCOUNTER 2020-08-12 13:34 | Outpatient (CLI) | payer MEDICARE, MEDICAID, SELFPAY ==
[2020-08-12 13:55] VITALS: BP 152/79; PULSE 86; RESP 17; O2SAT 97
[2020-08-12 14:46] VITALS: BP 155/86; PULSE 75; RESP 17; O2SAT 100
== END 2020-08-12 14:51 | disposition home or self-care (01) ==
LOC: INF 13:34
PROVIDERS: PCP Family Medicine; Visit Provider Podiatrist
DX: M86.171 Other acute osteomyelitis, right ankle and foot (principal); Z89.421 Acquired absence of other right toe(s); Z89.431 Acquired absence of right foot
CPT/HCPCS: 96365; J0878

== ENCOUNTER → 2020-08-14 15:18 | Outpatient (CLI) | payer MEDICARE, MEDICAID, SELFPAY ==
[2020-08-14 15:50] VITALS: BP 155/69; PULSE 85; RESP 18; O2SAT 95
== END ==
PROVIDERS: PCP Family Medicine; Visit Provider Podiatrist
DX: M86.171 Other acute osteomyelitis, right ankle and foot (principal); Z89.421 Acquired absence of other right toe(s); Z89.431 Acquired absence of right foot
CPT/HCPCS: 96365; J0878

== ENCOUNTER 2020-08-15 15:14 | Outpatient (CLI) | payer MEDICARE, MEDICAID, SELFPAY ==
[2020-08-15 15:32] VITALS: BP 144/70; PULSE 87; RESP 18; TEMP 36.4; O2SAT 96
[2020-08-15 16:02] VITALS: BP 141/75; PULSE 85; RESP 18; O2SAT 95
[2020-08-15 16:25] VITALS: BP 161/84; PULSE 75; RESP 18; O2SAT 96
== END 2020-08-15 16:30 | disposition home or self-care (01) ==
LOC: INF 15:14
PROVIDERS: Visit Provider Podiatrist
DX: M86.171 Other acute osteomyelitis, right ankle and foot (principal); S90.415A Abrasion, left lesser toe(s), initial encounter
CPT/HCPCS: 96365; G0463; J0878

== ENCOUNTER 2020-08-16 15:43 | Outpatient (CLI) | payer MEDICARE, MEDICAID, SELFPAY ==
[2020-08-16 15:46] VITALS: BMI 38.0
[2020-08-16 15:59] LABS: Basophils # 0.1 K/mm3 (0-0.2); Basophils % 0.9 % (0.1-2.0); Eosinophils # 0.7 K/mm3 (0.0-0.4); Eosinophils % 6.3 % (0.1-12.0); Hematocrit 41.1 % (42.0-52.0); Hemoglobin 13.8 g/dL (14.1-18.0); Lymphocytes % 28.4 % (10-50); Mean Corpuscular HGB Conc 33.5 g/dL (31.8-35.4); Mean Corpuscular Hemoglobin 30.1 pg (27.0-31.2); Mean Corpuscular Volume 89.8 fl (80-94); Monocytes # 0.4 K/mm3 (0.1-1.0); Monocytes % 4.1 % (1.7-9.3); Neutrophils # 6.4 K/mm3 (1.8-7.8); Neutrophils % 60.3 % (37.0-80.0); Platelet Count 187 K/mm3 (142-424); Red Blood Count 4.58 M/mm3 (4.60-6.20); Red Cell Distribution Width 13.7 % (11.5-17.5); White Blood Count 10.6 K/mm3 (4.8-10.8)
[2020-08-16 16:01] VITALS: BP 165/69; PULSE 71; RESP 20; TEMP 36.4; O2SAT 97
[2020-08-16 16:09] LABS: Chloride 102 mmol/L (98-107); Sodium 135 mmol/L (136-145)
[2020-08-16 16:10] LABS: Potassium 4.8 mmoL/L (3.5-5.1)
[2020-08-16 16:12] LABS: Alanine Aminotransferase 23 U/L (12-78); Albumin/Globulin Ratio 1.3 (1.1-1.8); Alkaline Phosphatase 153 U/L (38-126); Anion Gap 14.8 mEq/L (5-15); Aspartate Amino Transferase 24 U/L (17-59); Bilirubin,Total 0.3 mg/dl (0.2-1.3); Blood Urea Nitrogen 17 mg/dl (9-20); Calcium 8.8 mg/dl (8.4-10.2); Carbon Dioxide 23 mmol/L (22.0-30.0); Creatinine Clearance Estimated 150 mL/min (50-200); Estimated Glomerular Filt Rate 78 ml/min (>60); GFR (African American) 94 ML/MIN (>60); Globulin 3.2 g/dL (1.3-3.2); Glucose 166 mg/dl (74-100); Total Protein,Serum 7.2 g/dl (6.3-8.2)
[2020-08-16 16:19] LABS: C-Reactive Protein 11.3 mg/L (0-4)
[2020-08-16 16:25] LABS: Erythrocyte Sedimentation Rate 56 mm/hr (0-20)
[2020-08-16 16:49] VITALS: BP 137/72; PULSE 78; RESP 20; O2SAT 98
== END 2020-08-16 16:57 | disposition home or self-care (01) ==
LOC: INF 15:43
PROVIDERS: Visit Provider Podiatrist
DX: L03.116 Cellulitis of left lower limb (principal); L03.115 Cellulitis of right lower limb
CPT/HCPCS: 80053; 85025; 85651; 86140; 96365; G0463; J0878

== ENCOUNTER 2020-08-17 14:25 | Outpatient (CLI) | payer MEDICARE, MEDICAID, SELFPAY ==
[2020-08-17 15:00] VITALS: BP 143/77; PULSE 84; RESP 17; TEMP 36.7; O2SAT 98
[2020-08-17 15:55] VITALS: BP 143/78; PULSE 75; RESP 17; O2SAT 98
== END 2020-08-17 16:15 | disposition home or self-care (01) ==
LOC: INF 14:28
PROVIDERS: Visit Provider Podiatrist
DX: M86.171 Other acute osteomyelitis, right ankle and foot (principal); Z89.421 Acquired absence of other right toe(s); Z89.431 Acquired absence of right foot
CPT/HCPCS: 96365; J0878

== ENCOUNTER 2020-08-18 16:00 | Outpatient (CLI) | payer MEDICARE, MEDICAID, SELFPAY ==
[2020-08-18 14:35] VITALS: BP 127/71; PULSE 69; RESP 17; TEMP 36.7; O2SAT 97
[2020-08-18 16:00] VITALS: BMI 38.0
--- NOTE | 2020-08-18 16:10 | XR_ITS ---
PROCEDURE: XR CHEST PORTABLE CLINICAL HISTORY: check picc placment; COMPARISON: CR XR CHEST 2V from 05/04/2020 CR XR CHEST 2V from 07/27/2020 CR XR CHEST PORTABLE PICC PLAC from 08/11/2020 FINDINGS: Left upper extremity PICC line has been placed. The tip is in the region the SVC in good position. Lungs are clear bilaterally. The lungs are clear without infiltrates, suspicious nodules, or pleural effusions. No acute bony abnormalities. IMPRESSION: PICC line tip appears to be in the region the SVC Dictated by: Jung Mary MD 08/18/2020 16:21 Jung Mary MD in [place] 08/18/2020 16:21
--- NOTE | 2020-08-18 16:18 | PC.NURSE ---
pt arrived to the infusion department with an ac wrap applied around pt left upper arm where his PICC is placed. pt stated the dressing came off last night and the line came out a bunch. pt stated he pushed it back into his arm as far as he could get it and applied an ac wrap to secure it. PICC line assessed and appeared to be exposed under the acewrap with stat lock falling off. PICC flushed with NS syringe. Line flushed with ease and blood return noted at this time. on assessment PICC line is npow has 3cm exposed. PICC line dressing changed and cleaned by Blake using sterile technique at this time. Radiology called for stat Xray to confirm placement of line. pt educated on the importance of maintaining sterility with his PICC line and the increase for infection when it is not. pt also educated not to push PICC line back in if it is pulled out again but to go to his local ER for assessment of placement and application of dressing.
[2020-08-18 17:39] VITALS: BP 131/71; PULSE 71; RESP 17; TEMP 36.8; O2SAT 97
--- NOTE | 2020-08-18 17:42 | PC.NURSE ---
on assessment pt picc in place and intact and flushes and draws with ease at discharge.
== END 2020-08-18 17:42 | disposition home or self-care (01) ==
LOC: INF 16:08
PROVIDERS: Visit Provider Podiatrist
DX: M86.171 Other acute osteomyelitis, right ankle and foot (principal); L97.521 Non-pressure chronic ulcer of other part of left foot limited to breakdown of skin; L97.511 Non-pressure chronic ulcer of other part of right foot limited to breakdown of skin
CPT/HCPCS: 71045; 96365; G0463; J0878

== ENCOUNTER → 2020-08-19 19:43 | Outpatient (CLI) | payer MEDICARE, MEDICAID, SELFPAY ==
[2020-08-18 16:08] VITALS: BMI 38.0
[2020-08-19 19:53] VITALS: BP 130/71; PULSE 65; RESP 16; TEMP 36.9; O2SAT 98
== END ==
PROVIDERS: PCP Family Medicine; Visit Provider Podiatrist
DX: M86.171 Other acute osteomyelitis, right ankle and foot (principal); Z89.421 Acquired absence of other right toe(s); Z89.431 Acquired absence of right foot; S90.415A Abrasion, left lesser toe(s), initial encounter
CPT/HCPCS: 96365; J0878

== ENCOUNTER → 2020-08-20 16:07 | Outpatient (CLI) | payer MEDICARE, MEDICAID, SELFPAY ==
[2020-08-20 16:27] VITALS: BP 136/78; PULSE 81; RESP 20; TEMP 36.8; O2SAT 95
== END ==
PROVIDERS: PCP Family Medicine; Visit Provider Podiatrist
DX: M86.171 Other acute osteomyelitis, right ankle and foot (principal); Z89.421 Acquired absence of other right toe(s); Z89.431 Acquired absence of right foot; Z48.01 Encounter for change or removal of surgical wound dressing
CPT/HCPCS: 96365; G0463; J0878

== ENCOUNTER → 2020-08-21 16:36 | Outpatient (CLI) | payer MEDICARE, MEDICAID, SELFPAY ==
[2020-08-21 16:57] VITALS: BP 133/78; PULSE 77; RESP 16; O2SAT 95
== END ==
PROVIDERS: PCP Family Medicine; Visit Provider Podiatrist
DX: M86.171 Other acute osteomyelitis, right ankle and foot (principal); S90.415A Abrasion, left lesser toe(s), initial encounter; Z89.421 Acquired absence of other right toe(s)
CPT/HCPCS: 96365; J0878

== ENCOUNTER 2020-08-22 13:29 | Outpatient (CLI) | payer MEDICARE, MEDICAID, SELFPAY ==
[2020-08-22 13:29] VITALS: BP 122/82; PULSE 74; RESP 20; TEMP 36.9; O2SAT 95
[2020-08-22 14:30] VITALS: BP 132/85; PULSE 78; RESP 18
== END 2020-08-22 14:30 | disposition home or self-care (01) ==
LOC: INF 13:29
PROVIDERS: Visit Provider Podiatrist
DX: M86.171 Other acute osteomyelitis, right ankle and foot (principal); Z89.421 Acquired absence of other right toe(s); Z89.431 Acquired absence of right foot; S90.415A Abrasion, left lesser toe(s), initial encounter
CPT/HCPCS: 96365; G0463; J0878

== ENCOUNTER 2020-08-23 14:59 | Outpatient (CLI) | payer MEDICARE, MEDICAID, SELFPAY ==
[2020-08-23 14:59] VITALS: BMI 38.0
[2020-08-23 15:28] LABS: Basophils # 0.1 K/mm3 (0-0.2); Basophils % 0.8 % (0.1-2.0); Eosinophils # 0.5 K/mm3 (0.0-0.4); Eosinophils % 6.2 % (0.1-12.0); Hematocrit 42.1 % (42.0-52.0); Hemoglobin 13.9 g/dL (14.1-18.0); Lymphocytes # 2.7 K/mm3 (0.7-4.5); Lymphocytes % 31.5 % (10-50); Mean Corpuscular HGB Conc 33.1 g/dL (31.8-35.4); Mean Corpuscular Hemoglobin 29.6 pg (27.0-31.2); Mean Corpuscular Volume 89.3 fl (80-94); Mean Platelet Volume 9.3 fl (7.4-10.4); Monocytes # 0.4 K/mm3 (0.1-1.0); Monocytes % 4.2 % (1.7-9.3); Neutrophils % 57.3 % (37.0-80.0); Platelet Count 150 K/mm3 (142-424); Red Blood Count 4.71 M/mm3 (4.60-6.20); Red Cell Distribution Width 14.2 % (11.5-17.5); White Blood Count 8.7 K/mm3 (4.8-10.8)
[2020-08-23 15:29] LABS: Chloride 103 mmol/L (98-107); Potassium 4.4 mmoL/L (3.5-5.1); Sodium 135 mmol/L (136-145)
[2020-08-23 15:32] LABS: Alanine Aminotransferase 17 U/L (12-78); Albumin Level 4.1 g/dl (3.5-5.0); Albumin/Globulin Ratio 1.3 (1.1-1.8); Alkaline Phosphatase 97 U/L (38-126); Anion Gap 12.4 mEq/L (5-15); Aspartate Amino Transferase 22 U/L (17-59); Bilirubin,Total 0.5 mg/dl (0.2-1.3); Blood Urea Nitrogen 16 mg/dl (9-20); Calcium 8.7 mg/dl (8.4-10.2); Carbon Dioxide 24 mmol/L (22.0-30.0); Creatinine Clearance Estimated 167 mL/min (50-200); Estimated Glomerular Filt Rate 88 ml/min (>60); GFR (African American) 106 ML/MIN (>60); Globulin 3.1 g/dL (1.3-3.2); Glucose 118 mg/dl (74-100); Total Protein,Serum 7.2 g/dl (6.3-8.2)
[2020-08-23 15:33] VITALS: BP 121/68; PULSE 68; RESP 20; TEMP 36.9; O2SAT 95
[2020-08-23 15:44] LABS: C-Reactive Protein 4.7 mg/L (0-4)
[2020-08-23 16:00] LABS: Creatine Kinase 94 U/L (55-170)
[2020-08-23 16:14] VITALS: BP 128/74; PULSE 74; RESP 20; TEMP 36.9; O2SAT 95
[2020-08-23 16:14] LABS: Erythrocyte Sedimentation Rate 69 mm/hr (0-20)
== END 2020-08-23 16:27 | disposition home or self-care (01) ==
LOC: INF 14:59
PROVIDERS: Visit Provider Podiatrist
DX: L03.115 Cellulitis of right lower limb (principal)
CPT/HCPCS: 80053; 82550; 85025; 85651; 86140; 96365; G0463; J0878

== ENCOUNTER 2020-08-24 13:16 | Outpatient (CLI) | payer MEDICARE, MEDICAID, SELFPAY ==
[2020-08-24 13:35] VITALS: BP 126/77; PULSE 86; RESP 18; TEMP 36.5; O2SAT 99
[2020-08-24 14:20] VITALS: BP 125/79; PULSE 88; RESP 18; O2SAT 99
== END 2020-08-24 14:31 | disposition home or self-care (01) ==
LOC: INF 13:16
PROVIDERS: PCP Family Medicine; Visit Provider Podiatrist
DX: M86.171 Other acute osteomyelitis, right ankle and foot (principal)
CPT/HCPCS: 96365; J0878

== ENCOUNTER → 2020-08-24 18:06 | Outpatient (CLI) | payer MEDICARE, MEDICAID, SELFPAY | PROVIDERS: Visit Provider Nurse Practitioner | DX: Z51.89 Encounter for other specified aftercare (principal); Z98.890 Other specified postprocedural states; Z89.431 Acquired absence of right foot | CPT/HCPCS: 87070; 87205; 96365; J0878 ==

== ENCOUNTER 2020-08-25 15:00 | Outpatient (CLI) | payer MEDICARE, MEDICAID, SELFPAY ==
[2020-08-25 15:20] VITALS: BP 131/70; PULSE 70; RESP 17; TEMP 36.9; O2SAT 98
[2020-08-25 16:23] VITALS: BP 147/87; PULSE 76; RESP 17; TEMP 36.8; O2SAT 96
== END 2020-08-25 16:31 | disposition home or self-care (01) ==
LOC: INF 15:14
PROVIDERS: Visit Provider Podiatrist
DX: M86.171 Other acute osteomyelitis, right ankle and foot (principal); Z89.421 Acquired absence of other right toe(s); Z89.431 Acquired absence of right foot; S90.415A Abrasion, left lesser toe(s), initial encounter
CPT/HCPCS: 96365; G0463; J0878

== ENCOUNTER 2020-08-26 15:10 | Outpatient (CLI) | payer MEDICARE, MEDICAID, SELFPAY ==
[2020-08-26 15:20] VITALS: BP 100/61; PULSE 83; RESP 16; TEMP 36.5; O2SAT 97
[2020-08-26 16:05] VITALS: BP 124/71; PULSE 79; RESP 16
--- NOTE | 2020-08-26 16:40 | PC.NURSE ---
1545 - DRESSING REMOVED FROM RIGHT FOOT. INCISION NOTED WITH NO TOES PRESENT. KELSEY AND SUTURES INTACT. CLEANED AREA WITH NS, COVERED WITH BETADINE SOAKED 4X4'S FOLLOWED BY DRY 4X4'S, KERLIX, AND LIVE WRAP.
== END 2020-08-26 16:10 | disposition home or self-care (01) ==
LOC: INF 15:13
PROVIDERS: Visit Provider Podiatrist
DX: M86.171 Other acute osteomyelitis, right ankle and foot (principal); S90.415A Abrasion, left lesser toe(s), initial encounter; Z89.421 Acquired absence of other right toe(s); Z89.431 Acquired absence of right foot
CPT/HCPCS: 96365; G0463; J0878

== ENCOUNTER 2020-08-30 14:14 | Outpatient (CLI) | payer MEDICARE, MEDICAID, SELFPAY ==
[2020-08-30 14:18] VITALS: BMI 38.0
[2020-08-30 14:54] LABS: Basophils % 0.6 % (0.1-2.0); Eosinophils # 0.4 K/mm3 (0.0-0.4); Eosinophils % 5.4 % (0.1-12.0); Hematocrit 44.2 % (42.0-52.0); Hemoglobin 14.6 g/dL (14.1-18.0); Lymphocytes # 2.6 K/mm3 (0.7-4.5); Lymphocytes % 33.4 % (10-50); Mean Corpuscular Hemoglobin 29.7 pg (27.0-31.2); Mean Platelet Volume 9.9 fl (7.4-10.4); Monocytes # 0.4 K/mm3 (0.1-1.0); Monocytes % 4.8 % (1.7-9.3); Neutrophils # 4.4 K/mm3 (1.8-7.8); Neutrophils % 55.8 % (37.0-80.0); Platelet Count 137 K/mm3 (142-424); Red Blood Count 4.91 M/mm3 (4.60-6.20); Red Cell Distribution Width 14.2 % (11.5-17.5); White Blood Count 7.8 K/mm3 (4.8-10.8)
[2020-08-30 15:18] LABS: Chloride 103 mmol/L (98-107); Potassium 5.1 mmoL/L (3.5-5.1); Sodium 136 mmol/L (136-145)
[2020-08-30 15:20] LABS: Blood Urea Nitrogen 25 mg/dl (9-20); Creatinine Clearance Estimated 125 mL/min (50-200); Estimated Glomerular Filt Rate 63 ml/min (>60); GFR (African American) 76 ML/MIN (>60)
[2020-08-30 15:21] LABS: Alanine Aminotransferase 22 U/L (12-78); Albumin Level 4.3 g/dl (3.5-5.0); Albumin/Globulin Ratio 1.3 (1.1-1.8); Alkaline Phosphatase 91 U/L (38-126); Anion Gap 15.1 mEq/L (5-15); Aspartate Amino Transferase 25 U/L (17-59); Bilirubin,Total 0.5 mg/dl (0.2-1.3); Calcium 9.2 mg/dl (8.4-10.2); Carbon Dioxide 23 mmol/L (22.0-30.0); Globulin 3.3 g/dL (1.3-3.2); Glucose 121 mg/dl (74-100); Total Protein,Serum 7.6 g/dl (6.3-8.2)
[2020-08-30 16:21] LABS: C-Reactive Protein 3.7 mg/L (0-4)
[2020-08-30 16:55] LABS: Erythrocyte Sedimentation Rate 68 mm/hr (0-20)
== END 2020-08-30 14:30 | disposition home or self-care (01) ==
LOC: INF 14:14
PROVIDERS: Visit Provider Podiatrist
DX: E08.621 Diabetes mellitus due to underlying condition with foot ulcer (principal); L03.115 Cellulitis of right lower limb; Z79.4 Long term (current) use of insulin
CPT/HCPCS: 80053; 85025; 85651; 86140; G0463

== ENCOUNTER 2020-08-31 14:00 | Outpatient (RCR) | payer MEDICARE, MEDICAID, SELFPAY ==
--- NOTE | 2020-08-17 14:15 | HMH.PTOPWND ---
Rehab Outpt Wound Evaluation Rehab OP Wound Evaluation Start: 08/17/20 13:19 Freq: Status: Active Protocol: Document 08/17/20 14:07 ARIADNE (Rec: 08/17/20 14:15 PHOMYRA [id number]) Electronically Signed By Kenn Chamberlain, PT 08/17/20 14:07 Subjective/History History History Pt is 55 yowm who presents with L lateral 5th toe wound and R distal foot wound S/P TMA performed 07/27/20. He has hx of chronically uncontrolled DM-II with neuropathy which resulted in R foot gangrene. He now presents with post-surgical changes and slow healing. He reports no c/o pain due to the neuropathy. R distal foot wound has increased drainage noted this date. PMH: CHF, DM- II, HL, HTN, MRSA. Subjective Subjective Pt with no current c/o. Wound Eval Wound Left Lateral Toe - 5th Digit Wound Type Diabetic Foot Ulcer Is This a Chronic Wound Yes Wound Length (cm) 1.0 Wound Width (cm) 1.0 Wound Bed Appearance Dusky Red Percentage Granulated (%) 100 Wound Margins Description Well Defined Surrounding Tissue Appearance [place] Drainage Description Serosanguineous Drainage Amount Small Wound Topical Solution/Irrigant Saline Irrigant Primary Dressing collagen Comment puracol Wound Secondary Dressing Type Composite,Gauze Roll/Wrap, Adhering Gauze Roll Comment optifoam gentle border lite Wound Debridement Method Sharps,Forceps,Gauze Wound Debridement Amount of Tissue Minimal Removed Wound Debridement Result Healthy Tissue Revealed Dressing Change Patient Tolerance Tolerated Well Right Distal Foot Wound Type Incision Is This a Chronic Wound No Wound Length (cm) 3.0 Wound Width (cm) 7.0 Wound Bed Appearance [place],Slough,Eschar,Edematous, Necrotic Percentage Granulated (%) 10 Percentage of Slough (%) 30 Percentage of Eschar (Black) (%) 60 Wound Margins Description Macerated Surrounding Tissue Appearance Edematous,Macerated Edema Type Non-Pitting Drainage Description Serosanguineous Drainage Amount Moderate Wound Topical Solution/Irrigant Saline Irriga
== END 2020-08-31 14:05 | disposition home or self-care (01) ==
LOC: PT 14:00
PROVIDERS: PCP Family Medicine; Visit Provider Podiatrist
DX: L97.521 Non-pressure chronic ulcer of other part of left foot limited to breakdown of skin (principal); L97.511 Non-pressure chronic ulcer of other part of right foot limited to breakdown of skin
CPT/HCPCS: 97162; 97597

== ENCOUNTER 2020-12-07 15:00 | Outpatient (RCR) | payer MEDICARE, MEDICAID, SELFPAY ==
--- NOTE | 2020-10-11 15:37 | HMH.PTOPWND ---
Rehab Outpt Wound Evaluation Rehab OP Wound Evaluation Start: 10/11/20 13:19 Freq: Status: Active Protocol: Document 10/11/20 15:29 ARIADEN (Rec: 10/11/20 15:36 PHORNE [id number]) Electronically Signed By Kenn Chamberlain, PT 10/11/20 15:29 Subjective/History History History Pt is 55 yowm who presents with continued open wound to R distal foot ~ 3 mos S/P R TMA . He reports no c/o pain in the foot and he feels the wound hs gotten a little better over the past few weeks . Wound presents with moderate amt of yellow slough this date, no hard eschar noted. Some significant dry skin surrounding the inferior wound margin, likely due to chronic anhydrosis. Subjective Subjective Pt with no c/o, numbness due to diabetic neuropathy. Wound Eval Wound Right Distal Foot Wound Type Incision Is This a Chronic Wound Yes Wound Length (cm) 2.6 Wound Width (cm) 4.1 Wound Depth (cm) 1.6 Wound Bed Appearance Beefy Red,Yellow Percentage Granulated (%) 25 Percentage of Slough (%) 75 Wound Margins Description Well Defined Surrounding Tissue Appearance [place] Edema Type Non-Pitting Drainage Description Serosanguineous Drainage Amount Moderate Drainage Odor No Odor Wound Topical Solution/Irrigant Saline Irrigant Primary Dressing Silver Dressing Comment betadine, opticell Ag Wound Secondary Dressing Type Gauze Pad,Gauze Roll/Wrap, Elastic Bandage Wound Debridement Method Sharps,Forceps,Gauze Wound Debridement Amount of Tissue Moderate Removed Dressing Change Patient Tolerance Tolerated Well Wound Problems/Impairments Impairments Problems/Impairmments Impaired Gait Pattern,Impaired Walking,Impaired Standing, Increased Edema,Wound Care Needs,Impaired Self Care/Self Management Prognosis Rehab Potential Fair Clinical Impression Consistent with Diagnosis Yes Short Term Goals Number of Weeks 4 Decrease Wound Area Yes: by 50% Decrease Yellow/White Slough % Yes: by 100% Shelter Goals Number of Weeks
--- NOTE | 2020-11-23 14:41 | HMH.RHREAS ---
Rehab Reassessment Rehab OP Re-assessment Start: 11/23/20 14:34 Freq: Status: Active Protocol: Document 11/23/20 14:36 ARIADNE (Rec: 11/23/20 14:40 ARIADNE [id number]) Electronically Signed By Kenn Chamberlain, PT 11/23/20 14:36 Rehab Re-assessment Subjective Subjective Pt with no increased pain even with dressing changes, did c/ o tightness of coban around his ankle holding the SNAP dressing tubing in place. Objective Objective Notes R TMA amp site wound: L= 2.0 cm, W= 3.5 cm, D= 0.5 cm Assessment Progress Assessment Progressing as Expected Assessment Notes Wound size significantly decreased, almost completely granulated at wound bed this date. Patient goals met ST,2 Goals Not Met LT,2,3 Revised Goals none Plan Plan Continue per initial POC. Frequency of Therapy 2 x/wk Duration of therapy 8 wks Time and Billing Re-Eval Time 15 Re-Eval Billing Units 0 PHYSICIAN CERTIFICATION: I certify the specified therapy services for Aryan Alcantar are required, authorized, and reviewed every 30 days.
== END 2020-12-07 15:05 | disposition home or self-care (01) ==
LOC: PT 15:00
PROVIDERS: PCP Family Medicine; Visit Provider Podiatrist
DX: L97.511 Non-pressure chronic ulcer of other part of right foot limited to breakdown of skin (principal); Z89.431 Acquired absence of right foot; Z98.890 Other specified postprocedural states
CPT/HCPCS: 97163; 97164; 97597

== ENCOUNTER 2021-05-15 11:39 | Inpatient (IN) | payer MEDICARE, MEDICAID, SELFPAY ==
[2021-05-15] VITALS (22 sets, daily range): BP systolic 104–140; BP diastolic 58–93; PULSE 78–98; RESP 16–20; TEMP 36.6–37.2; O2SAT 94–100; BMI 44.0; BMI 33.6
--- NOTE | 2021-05-15 11:48 | CT_ITS ---
FINAL REPORT CLINICAL HISTORY: foot infection. (heel) diabetic foot FINDINGS: CT LOWER EXTREMITY W & W/O CONTRAST Axial CT images were performed through the right foot without and with contrast. Coronal and sagittal reformatted images were submitted. This study was performed with techniques to keep radiation doses as low as reasonably achievable (ALARA). Individualized dose reduction techniques using automated exposure control or adjustment of mA and/or kV according to the patient's size were employed. FINDINGS: There are postoperative changes from transmetatarsal amputation. The bones are osteopenic. There is no acute fracture. There is no dislocation. There is soft tissue air in the posterior heel. There are questionable small bony erosions involving the posterior calcaneal tuberosity. There is posterior heel soft tissue swelling. There is no abnormal contrast enhancement. IMPRESSION: Postoperative change from transmetatarsal amputation. Soft tissue swelling and soft tissue air in the posterior heel with questionable small bony erosions of the posterior calcaneal tuberosity. Osteomyelitis cannot be excluded. If indicated, MRI may be helpful. Reviewed, Interpreted and Dictated by Emilio Armenta III, MD Transcribed by Ambrocio Fitch Authenticated by Emilio Armenta III, MD on 05/15/2021 03:21:39 PM [facility]
[2021-05-15 12:22] LABS: Basophils # 0.1 K/mm3 (0-0.2); Basophils % 0.6 % (0.1-2.0); Eosinophils # 0.1 K/mm3 (0.0-0.4); Eosinophils % 0.4 % (0.1-12.0); Hematocrit 42.7 % (42.0-52.0); Hemoglobin 13.7 g/dL (14.1-18.0); Lymphocytes # 1.5 K/mm3 (0.7-4.5); Lymphocytes % 11.4 % (10-50); Mean Corpuscular HGB Conc 32.1 g/dL (31.8-35.4); Mean Corpuscular Hemoglobin 28.6 pg (27.0-31.2); Mean Corpuscular Volume 89.3 fl (80-94); Mean Platelet Volume 9.5 fl (7.4-10.4); Monocytes # 0.6 K/mm3 (0.1-1.0); Monocytes % 4.3 % (1.7-9.3); Neutrophils % 83.4 % (37.0-80.0); Platelet Count 374 K/mm3 (142-424); Red Blood Count 4.78 M/mm3 (4.60-6.20); Red Cell Distribution Width 14.7 % (11.5-17.5); White Blood Count 13.2 K/mm3 (4.8-10.8)
[2021-05-15 12:29] LABS: Chloride 94 mmol/L (98-107); Potassium 4.7 mmoL/L (3.5-5.1); Sodium 125 mmol/L (136-145)
[2021-05-15 12:31] LABS: Alanine Aminotransferase 15 U/L (12-78); Alkaline Phosphatase 125 U/L (38-126); Aspartate Amino Transferase 19 U/L (17-59); Bilirubin,Total 0.6 mg/dl (0.2-1.3); Blood Urea Nitrogen 29 mg/dl (9-20); Carbon Dioxide 21 mmol/L (22.0-30.0); Creatinine Clearance Estimated 43 mL/min (50-200); Estimated Glomerular Filt Rate 33 ml/min (>60); GFR (African American) 40 ML/MIN (>60)
[2021-05-15 12:32] LABS: Albumin Level 4.2 g/dl (3.5-5.0); Albumin/Globulin Ratio 1.1 (1.1-1.8); Calcium 9.2 mg/dl (8.4-10.2); Glucose 211 mg/dl (74-100); Lactic Acid 1.6 mmol/L (0.7-2.1); Total Protein,Serum 8.2 g/dl (6.3-8.2)
[2021-05-15 12:40] LABS: Anion Gap 14.7 mEq/L (5-15); C-Reactive Protein 165.6 mg/L (0-4)
[2021-05-15 12:51] LABS: Erythrocyte Sedimentation Rate 19 mm/hr (0-20)
--- NOTE | 2021-05-15 12:56 | US_ITS ---
FINAL REPORT CLINICAL HISTORY: necrotizing fasciitis of the right heel FINDINGS: ANKLE-BRACHIAL PRESSURE INDICES Pressure indices are as follows: RIGHT LOWER EXTREMITY: Ankle-brachial pressure index: 0.70 Comments: Mild right peripheral vascular disease. LEFT LOWER EXTREMITY: Ankle brachial pressure index: 0.95 Comments: Borderline left peripheral vascular disease. IMPRESSION: No evidence of significant obstructive peripheral vascular disease of the lower extremities Reviewed, Interpreted and Dictated by Emilio Armenta III, MD Transcribed by Haylie Perry Authenticated by Emilio Armenta III, MD on 05/15/2021 04:36:[address] [facility]
--- NOTE | 2021-05-15 13:23 | HMH.EDGENADL ---
ED Disposition Clinical Impression: Infection of right foot Disposition: Admitted as Observation Condition on Discharge: Good - Critical Care Critical Care Time: No Attestation: On 05/15/21, the high probability of a clinically significant, sudden or life threatening deterioration of the following system(s) required my full and direct attention, intervention and personal management. The time I documented below is in addition to time spent performing reported procedures but includes the following listed in this critical care notation. Medical Decision Making - Medical Records Medical records reviewed: Yes: I reviewed the patient's medical records. - Jaden Inquiry Pt receiving controlled substance: No Vital Signs: 05/15/21 11:40 05/15/21 12:30 05/15/21 13:00 Temperature 98.2 F Temperature Source Oral Pulse Rate Pulse Rate [Radial] 98 H Respiratory Rate 16 Blood Pressure 140/87 129/93 H Blood Pressure [Right Arm] 110/67 Blood Pressure Mean 103 103 Blood Pressure Mean [Right Arm] 81 Blood Pressure Position Blood Pressure Position [Right Arm] Sitting 02 Sat by Pulse Oximetry 98 Oxygen Delivery Method Room Air 05/15/21 13:10 05/15/21 13:37 05/15/21 15:24 Temperature 99 F Temperature Source Oral Pulse Rate 93 H 93 H 78 Pulse Rate [Radial] Respiratory Rate 16 Blood Pressure 129/93 H 126/80 110/74 Blood Pressure [Right Arm] Blood Pressure Mean Blood Pressure Mean [Right Arm] Blood Pressure Position Sitting Blood Pressure Position [Right Arm] 02 Sat by Pulse Oximetry 98 98 Oxygen Delivery Method Room Air Room Air Room Air 05/15/21 15:45 Temperature Temperature Source Pulse Rate 92 H Pulse Rate [Radial] Respiratory Rate Blood Pressure Blood Pressure [Right Arm] Blood Pressure Mean Blood Pressure Mean [Right Arm] Blood Pressure Position Blood Pressure Position [Right Arm] 02 Sat by Pulse Oximetry Oxygen Delivery Method - Lab Data Lab results reviewed: Yes: I reviewed the patient's lab results. Lab Results 05/15/21 12:10: WBC 13.2 H, RBC 4.78, Hgb 13.7 L, Hct 42.7, MCV 89.3, MCH 28.6, MCHC 32.1, RDW 14.7, Plt Count 374, MPV 9.5, Neut % (Auto) 83.4 H, Lymph % (Auto) 11.4, Hardy % (Auto) 4.3, Eos % (Auto) 0.4, Baso % (Auto) 0.6, Neut # (Auto) 11.0 H, Lymph # (Auto) 1.5, Hardy # (Auto) 0.6, Eos # (Auto) 0.1, Baso # (Auto) 0.1, ESR 19 05/15/21 12:10: Sodium 125 L, Potassium 4.7, Chloride 94 L, Carbon Dioxide 21 L, Anion Gap 14.7, BUN 29 H, Creatinine 2.10 H, Estimated Creat Clear 43, Estimated GFR 33 L, Est GFR ( Amer) 40 L, Glucose 211 H, Calcium 9.2, Total Bilirubin 0.6, AST 19, ALT 15, Alkaline Phosphatase 125, C-Reactive Protein 165.6 H, Total Protein 8.2, Albumin 4.2, Globulin 4.0 H, Albumin/Globulin Ratio 1.1 05/15/21 12:10: Lactate 1.6 05/15/21 14:15: SARS-CoV-2 (PCR) Not detected, Influenza A Untype (PCR) Not detected, Influenza Type B (PCR) Not detected Result diagrams: 05/15/21 12:10 05/15/21 12:10 Orders (Tests/Meds): ED MEDICATIONS Generic Name Dose Route Start Last Admin Trade Name Freq PRN Reason Stop Dose Admin Acetaminophen 650 mg 05/15/21 17:47 Acetaminophen 325mg Tab PO 06/14/21 17:46 Q4HP PRN Fever or Mild Pain Acetaminophen 325 mg 05/15/21 18:05 Acetaminophen 325mg Tab PO 06/14/21 18:04 Q8HP PRN Fever > 100.4 Hydrocodone Bitart/Acetaminophen 1 tab 05/15/21 18:05 Apap/Hydrocodone 325mg/7.5mg Tab PO 06/14/21 18:04 Q4HP PRN Moderate Pain Gabapentin 800 mg 05/15/21 21:00 Gabapentin 100mg Capsule PO 06/14/21 20:59 BID NENITA Hydromorphone HCl 0.5 mg 05/15/21 17:47 Hydromorphone 2mg/Ml Syringe IV 05/15/21 23:59 Q5MINP PRN Moderate to Severe Pain Cefepime HCl 2 gm/ Sodium 100 mls @ 200 mls/hr 05/15/21 16:34 02/14/22 16:42 Chloride IV 05/15/21 17:03 200 mls/hr ONCE ONE Administration Ibuprofen 400 mg 05/15/21 17:47
--- NOTE | 2021-05-15 13:57 | PC.NURSE ---
patient to CT with photogrammetric tech
--- NOTE | 2021-05-15 14:14 | PC.NURSE ---
Patient back from CT; Vascular at bedside for ESTRELLA test
--- NOTE | 2021-05-15 14:17 | PC.NURSE ---
LAST PO INTAKE LAST NIGHT AND BLACK COFFEE THIS AM
[2021-05-15 14:36] LABS: Coronavirus 19, PCR Not Detected (NotDetected); Influenza A, PCR Not Detected (NotDetected); Influenza B, PCR Not Detected (NotDetected)
--- NOTE | 2021-05-15 15:07 | PC.NURSE ---
Pre-op here to take patient up to prep him for surgery. Podiatry clinic had consent filled out and signed.
--- NOTE | 2021-05-15 15:09 | PC.NURSE ---
Dr. Alexis richard, pt leaving with surgery staff at this time.
--- NOTE | 2021-05-15 15:23 | PC.NURSE ---
PT TO SURGERY PER DIVYA
--- NOTE | 2021-05-15 15:48 | HMH.ORTHOCON ---
*Admission Date: 05/15/21 *Reason for consult:: Right foot gas gangrene *History of present illness: Patient is a 56-year-old diabetic male who presented to the podiatry office outpatient this morning for right foot pain and a wound x1 month duration. Wound was noted to be malodorous and necrotic. I discussed possible admission with Dr. Espinoza. Patient was sent to the ER for further work-up including labs which showed white count of 13.2 and CRP of 165.6. CT imaging showed gas gangrene with possible osteomyelitis to the calcaneus. Patient will be admitted per Dr. Espinoza. Podiatry consulted. Discussed with Dr. Espinoza, ER and patient this foot may not be salvageable. We will plan for surgical I&D today with possible/likely orthopedic consult tomorrow. [facility] History I have reviewed the patient's past medical history: Yes Medical History: Reports:: Congestive Heart Failure, Diabetes Mellitus Type 2, Hyperlipidemia, Hypertension, MRSA Denies:: Cancer, Diabetes Mellitus Type 1, Internal Pacemaker, Seizures *Have you ever received a pneumonia vaccine?: Yes *Have you received a flu vaccine this season?: Yes Other Medical History: Denies: Blood Transfusion Reaction Other Surgeries: Yes: Colonoscopy, Other. No: Pacemaker Amputation: Yes Fractures: No - *Social History Smoking Status: Current every day smoker Tobacco Type: cigarettes # Packs/Day (cigarettes): 1 Alcohol Intake: never Substance Use Type: denies use *Occupational Status:: disabled Housing: house Household Members: spouse (Getting ) *Travel in the last 8 weeks: None Family Hx:: Asthma, Cancer, Diabetes, Hyperlipidemia, Hypertension, Stroke, Thyroid Disorder Review of Systems - Review of Systems Review of systems:: pertinent systems reviewed and negative unless documented below - Constitutional Reports fatigue - Eyes Denies blind spots - ENT Denies abnormal hearing - *Cardiovascular Denies chest pain, Denies shortness of breath - *Respiratory Reports wheezing - *Gastrointestinal Reports nausea - *Genitourinary Denies difficulty urinating - *Musculoskeletal Reports muscle weakness, Reports numbness - Integumentary/Breasts Reports hair loss, Reports skin ulcer (Right heel, right lateral fifth metatarsal), Reports wounds (See skin ulcer: Necrotic malodorous drainage from right heel) - *Neurologic Reports tingling/numbness/burning sensations (Secondary to diabetic neuropathy) - Psychiatric Reports depression - Endocrine Reports increased thirst - Hematologic/Lymphatic Reports easy bleeding, Reports easy bruising - Allergic/Immunologic Reports GI upset with certain foods Meds Home Medications Medication Instructions Recorded Confirmed Type Gabapentin 800 mg PO QID 03/17/20 05/15/21 History lisinopriL [Lisinopril 10mg Tab] 10 mg PO DAILY 03/17/20 05/15/21 History albuterol sulfate 90 mcg/actuation 1 mcg INHALATION DAILY 04/27/20 05/15/21 History aerosol inhaler umeclidinium 62.5 mcg-vilanterol 1 mcg INHALATION DAILY 04/27/20 05/15/21 History 25 mcg/actuation powdr for inhalation pravastatin 40 mg tablet 40 mg PO DAILY tab 09/22/20 05/15/21 History methocarbamol 750 mg tablet 750 mg PO BID tab 10/20/20 05/15/21 History insulin detemir U-100 100 unit/mL 35 unit SQ DIRECTED ml 11/14/20 05/15/21 History (3 mL) subcutaneous pen metformin 500 mg tablet,extended 1,000 mg PO BID tab 11/14/20 05/15/21 History release 24hr cholecalciferol (vitamin D3) 50 50 mcg PO DAILY tab 11/28/20 05/15/21 History mcg (2,000 unit) tablet Allergies Allergy/AdvReac Type Severity Reaction Status Date / Time aspirin Allergy Verified 05/15/21 11:02 diphenhydramine Allergy Verified 05/15/21 11:02 [From Benadryl] ibuprofen Allergy Verified 05/15/21 11:02 morphine Allergy Verified 05/15/21 11:02 moxifloxacin [From Avelox] Allergy Verified 05/15/21 11:02 vancomycin Allergy Verified 05/15/21 11:02 Penicilli
--- NOTE | 2021-05-15 16:22 | P.PN_ITS ---
[facility] Anesthesia Checklist - Patient Identification Patient Identification: Arm Band - Structural Data Admitted From: Emergency Dept Planned Operative Procedure/s: I&D Right Foot Consent for Planned Operative Procedure(s) Verified: Yes Verified Documents: Surgical Consent, History and Physical - NPO Status Verified Time NPO: 07:30 (black coffee) - Additional verifications Anesthesia Reactions: No Hx Blood Transfusions: No Blood Transfusion Reaction: No - Airway Assessment C-Spine Mobility Assessed: Yes (mp2) TMJ Mobility Assessed: Yes Dentition: Poor Dentition - Neurological Assessment Level of Consciousness: Awake, Alert - Anesthesia Plan Anesthesia Risk discussed: Yes Anesthesia Plan: Verified ASA Class: III Anesthesia Type: MAC [facility] History I have reviewed the patient's past medical history: Yes Medical History: Reports:: Congestive Heart Failure, Diabetes Mellitus Type 2, Hyperlipidemia, Hypertension, MRSA Denies:: Cancer, Diabetes Mellitus Type 1, Internal Pacemaker, Seizures *Have you ever received a pneumonia vaccine?: Yes *Have you received a flu vaccine this season?: Yes Other Medical History: Denies: Blood Transfusion Reaction Anesthesia experience/problems:: nac Other Surgeries: Yes: Colonoscopy, Other. No: Pacemaker Amputation: Yes Fractures: No - *Social History Smoking Status: Current every day smoker Tobacco Type: cigarettes # Packs/Day (cigarettes): 1 Alcohol Intake: never Substance Use Type: denies use *Occupational Status:: disabled Housing: house Household Members: spouse (Getting ) *Travel in the last 8 weeks: None Family Hx:: Asthma, Cancer, Diabetes, Hyperlipidemia, Hypertension, Stroke, Thyroid Disorder
--- NOTE | 2021-05-15 17:14 | HMH.OPNOTE ---
Date of procedure: 05/15/21 Pre-op Diagnosis:: 1. Right foot gas gangrene 2. Cellulitis of right foot 3. Osteomyelitis of right foot 4. DM with neuropathy, ulcer right heel and 5th metatarsal 5. Tobacco abuse 6. Hx of MRSA 7. Morbid Obesity 8. Hx of non-compliance Post-op Diagnosis:: Same Procedure performed:: 1. Right foot incision and drainage 2. Right foot wound debridement x2 3. Right foot bone biopsy Surgeon:: Alyson Huertas DPM CUSTOMER SUPPORT AGENT:: Barry Bravo Anesthesia: MAC, local (10cc 0.5% marcaine plain) Estimated blood loss (mL): 25 Clinical Note:: Images right foot were reviewed and discussed with the patient. We discussed conservative versus surgical treatment options. Conservative treatment options include local wound care, oral and IV antibiotics, change in shoe wear, taping/padding, and off-loading. We discussed surgical intervention for surgical incision and drainage of wound debridement of the necrotic nonviable tissue with bone biopsy. Discussed high risk for below-knee amputation. Patient also understands that they could have wound healing complications including delayed healing and infection. We discussed that if the wound does not heal, it is possible that they may need a more proximal amputation and could result in further loss of digits, loss of partial foot or loss of leg. We discussed the risks and benefits in great detail. Other surgical risks include: prolonged pain and swelling, further infection requiring oral or IV antibiotics, delay in healing of soft tissue or bone, nerve or blood vessel damage, CRPS/RSD, DVT, anesthesia complications, and even . All questions answered. Patient verbalized understanding. Consent obtained. Proceed with surgery today 05/15/21. Operative findings:: Incision made along the lateral aspect of the right foot over the fifth metatarsal wound. Wound was excised full-thickness through skin subcutaneous tissue deep fascia down to the level of the fifth metatarsal bone. Necrotic nonviable soft tissue was sharply excisionally debrided with 15 blade and forceps. Post debridement the fifth metatarsal was visible and the wound measured 9 x 3 x 1 cm. There were several tracts noted. One tract was noted inferior distal along the plantar fascia approximately 3 cm. There was tracking along the inferior aspect of the wound towards the heel which formed a tunnel the entire length of the plantar foot 10 cm. Necrotic tissue with purulent drainage noted to the right heel. There was a large ulceration soft tissue defect noted to the inferior heel. 15 blade forceps used to sharply excisionally debride the wound full-thickness through nonviable soft tissue skin, subcutaneous tissue, deep fascia down to the level of the calcaneus bone. Purulence malodor noted. Necrotic tissue noted to the plantar fascia and the Achilles tendon. Total wound post debridement was 16 x 10 x 1 cm. There was purulence tracking up the Achilles tendon, 15cm. Necrotic tissue extended superiorly along the peroneal tendons to the subtalar joint. Ankle joint was also opened and there was purulence in the ankle joint. The calcaneus bone was soft and easily debrided with a curette. Jamshidi needle used to take biopsy of bone from the ankle and the distal tibia. The bone was soft and malodorous with purulence noted. Adequate bleeding noted to ankle. Overall there is a poor prognosis as patient had necrotic tissue, malodor and soft bone likely consistent with osteomyelitis to the calcaneus talus as well as to the ankle joint including the distal tibia. Unfortunately I do not think this is a salvageable situation given the extent of infection as well as the tracking along the entire plantar foot as well as along the peroneal and Achilles tendons. We will plan to consult orthopedics for 2nd opinion and BKA evaluation. Operative note:: On this date and time the patient was deemed an appropriate surgical candidate. With informed consent time patient was transfe
--- NOTE | 2021-05-15 18:02 | PC.NURSE ---
174-detailed report called to MICHELLE Walter 174-pt transported to 2nd floor room 207 via hospital bed w/laith rails up and left in care of MICHELLE Walter with bed locked in lowest position, vss, pt stable
--- NOTE | 2021-05-15 18:11 | XR_ITS ---
PROCEDURE INFORMATION: Exam: XR Right Ankle Exam date and time: 05/15/2021 6:11 PM Age: 56 years old Clinical indication: Other: Post op i&d; Prior surgery; Surgery date: Post-operative (0-2 days); Surgery type: I& d today; Additional info: Post op i d, gas TECHNIQUE: Imaging protocol: XR Right ankle. Views: 3 or more views. COMPARISON: CT FOOT RT WO/W CON 05/15/2021 1:59 PM FINDINGS: Bones/joints: Status post transmetatarsal amputation. Subchondral cystic change to the midfoot. No fracture or dislocation. Soft tissues: Extensive soft tissue ulceration overlying the calcaneus with subcutaneous lucency compatible with gas. IMPRESSION: Status post transmetatarsal amputation with extensive soft tissue abnormality as seen on CT foot from same date. Osteomyelitis or necrotizing infection cannot be excluded.
[2021-05-15 18:24] LABS: POC Glucose,Bedside 216 (70-110)
[2021-05-16 00:45] VITALS: BP 106/58; PULSE 87; RESP 17; O2SAT 97
[2021-05-16 01:45] VITALS: BP 102/56; PULSE 87; RESP 18; O2SAT 98
[2021-05-16 02:45] VITALS: BP 106/55; PULSE 90; RESP 18; O2SAT 94
[2021-05-16 05:21] LABS: POC Glucose,Bedside 316 (70-110)
[2021-05-16 06:00] VITALS: BMI 33.6
[2021-05-16 06:44] LABS: Basophils % 0.4 % (0.1-2.0); Eosinophils # 0.1 K/mm3 (0.0-0.4); Eosinophils % 0.8 % (0.1-12.0); Lymphocytes # 1.3 K/mm3 (0.7-4.5); Lymphocytes % 12.9 % (10-50); Mean Corpuscular HGB Conc 32.2 g/dL (31.8-35.4); Mean Corpuscular Hemoglobin 28.5 pg (27.0-31.2); Mean Corpuscular Volume 88.5 fl (80-94); Mean Platelet Volume 10.3 fl (7.4-10.4); Monocytes # 0.8 K/mm3 (0.1-1.0); Monocytes % 7.6 % (1.7-9.3); Neutrophils # 8.1 K/mm3 (1.8-7.8); Neutrophils % 78.3 % (37.0-80.0); Platelet Count 318 K/mm3 (142-424); Red Blood Count 4.18 M/mm3 (4.60-6.20); Red Cell Distribution Width 14.6 % (11.5-17.5); White Blood Count 10.3 K/mm3 (4.8-10.8)
--- NOTE | 2021-05-16 06:45 | PC.NURSE ---
DURING NURSE CHECK, PATIENT HAD MOVED AROUND IN BED AND CAUSED HIS LIVE BANDAGE TO UNWRAP. THIS RN RE WRAPPED FOOT AND ENCOURAGE PATIENT TO ELEVATE HIS RIGHT FOOT. DURING A NURSE CHECK, THIS RN FOUND PATIENT WALKING FROM THE BATHROOM ON HIS RIGHT FOOT. THIS RN EXPLAINED AGAIN TO PATIENT THAT HE IS NON WEIGHT BEARING ON THE RIGHT FOOT AND HELPED PATIENT BACK TO BED. RIGHT HEEL WAS PLACED ON TWO PILLOWS FOR ELEVATION. THE RIGHT HEEL HAD BLOOD DRAINAGE NOTED, THIS RN PLACED 2 ABDOMINAL PADS AND REINFORCED WITH AN LIVE BANDAGE. THIS RN EDUCATED PATIENT THE IMPORTANCE OF STAYING IN BED AND ELEVATING RIGHT FOOT.
[2021-05-16 06:58] LABS: Chloride 97 mmol/L (98-107); Potassium 4.6 mmoL/L (3.5-5.1); Sodium 128 mmol/L (136-145)
[2021-05-16 07:01] LABS: Alanine Aminotransferase 16 U/L (12-78); Albumin Level 3.5 g/dl (3.5-5.0); Alkaline Phosphatase 99 U/L (38-126); Anion Gap 10.6 mEq/L (5-15); Aspartate Amino Transferase 21 U/L (17-59); Bilirubin,Total 0.5 mg/dl (0.2-1.3); Blood Urea Nitrogen 25 mg/dl (9-20); Calcium 8.5 mg/dl (8.4-10.2); Carbon Dioxide 25 mmol/L (22.0-30.0); Creatinine Clearance Estimated 88 mL/min (50-200); Estimated Glomerular Filt Rate 48 ml/min (>60); GFR (African American) 59 ML/MIN (>60); Globulin 3.5 g/dL (1.3-3.2); Glucose 272 mg/dl (74-100)
[2021-05-16 07:05] LABS: Hemoglobin 11.9 g/dL (14.1-18.0)
--- NOTE | 2021-05-16 07:21 | P.CONPHA_ITS ---
[facility] Pharmacy VTE Monitoring - Patient Demographics Admission date: 05/15/21 Report Date: 05/16/21 Time: 07:21 Allergies/Adverse Reactions: Patient Allergies aspirin Allergy (Verified 05/15/21 11:02) diphenhydramine [From Benadryl] Allergy (Verified 05/15/21 11:02) ibuprofen Allergy (Verified 05/15/21 11:02) morphine Allergy (Verified 05/15/21 11:02) moxifloxacin [From Avelox] Allergy (Verified 05/15/21 11:02) vancomycin Allergy (Verified 05/15/21 11:02) Penicillins Adverse Reaction (Verified 05/15/21 11:02) Height: 1.83 m Weight: 112.718 kg Patient Problems: Current Active Problems Gas gangrene (Acute) Ulcer of right foot due to type 2 diabetes mellitus (Acute) Foot osteomyelitis, right (Acute) Diabetic neuropathy, type II diabetes mellitus (Acute) PAD (peripheral artery disease) (Acute) Infection of right foot (Acute) Tobacco abuse (Chronic) Cellulitis of right foot (Acute) - VTE Risk Labs: VTE Related Lab Results Hgb 11.9 g/dL (14.1-18.0) L D 05/16/21 05:52 Hct 37.0 % (42.0-52.0) L 05/16/21 05:52 Plt Count 318 K/mm3 (142-424) 05/16/21 05:52 BUN 25 mg/dl (9-20) H 05/16/21 05:52 Creatinine 1.50 mg/dl (0.66-1.25) H D 05/16/21 05:52 Estimated Creat Clear 88 mL/min (50-200) 05/16/21 05:52 VTE Score: 4 VTE Risk Level: Low Risk - Prophylaxis VTE Prophylaxis Ordered?: Yes Types of VTE Prophylaxis: TEDS Knee High Location of Applied Device: Left Leg
--- NOTE | 2021-05-16 07:45 | PC.NURSE ---
Dr. Phillip notified of consult on pt.
[2021-05-16 08:00] VITALS: BP 92/56; PULSE 92; RESP 16; TEMP 37.2; O2SAT 93
--- NOTE | 2021-05-16 08:24 | HMH.ORTHPN ---
Subjective Date: 05/16/21 Time: 07:45 Principal diagnosis: Right foot gas gangrene Interval history: Patient resting comfortably in bed. He denies having an appetite. He does seem pale and lethargic. Reports pain to the right heel and lower extremity. PN: Obj Ex Vital signs: Temp Pulse Resp BP Pulse Ox 98.9 F 92 H 16 92/56 L 93 L 05/16/21 08:00 05/16/21 08:00 05/16/21 08:00 05/16/21 08:00 05/16/21 08:00 - Constitutional chronically ill appearing, disheveled - Routine HEENT Exam Head: Present: normocephalic - Routine Cardiovascular Exam Present: RRR - Routine Abdominal Exam Present: obese - Routine Extremities Exam Present: edema, tenderness, amputation (R TMA) - Routine Skin Exam Present: erythema, wounds (RF 5th met ulcer, R 5th plantar heel opening with incision extending to medial ankle (see op note for details)) - Routine Neurological Exam Present: alert, oriented X3 Progress Note: A&P (1) Gas gangrene Status: Acute (2) Ulcer of right foot due to type 2 diabetes mellitus Status: Acute (3) Foot osteomyelitis, right Status: Acute (4) Diabetic neuropathy, type II diabetes mellitus Status: Acute (5) PAD (peripheral artery disease) Status: Acute (6) Cellulitis of right foot Status: Acute (7) Tobacco abuse Status: Chronic Assessment and Plan for All Diagnoses:: Surgery 05/15/21: s/p 1. Right foot incision and drainage, 2. Right foot wound debridement x2, 3. Right foot bone biopsy POD #1 Adequate bleeding noted to ankle. Overall there is a poor prognosis as patient had necrotic tissue, malodor and soft bone likely consistent with osteomyelitis to the calcaneus talus as well as to the ankle joint including the distal tibia. Unfortunately I do not think this is a salvageable situation given the extent of infection as well as the tracking along the entire plantar foot as well as along the peroneal and Achilles tendons. We will plan to consult orthopedics for 2nd opinion and BKA evaluation. -Dsg changed this am. Still some malodor noted. Exposed right 5th met base, calcaneus, talus/ankle. Tracking up the achilles tendon. Tissue is dusky and necrotic. -Mild malodor noted at bedside. -Betadine soaked gauze, DSD applied. -Maintain dressing clean dry and intact to right foot, reinforce as necessary. -NWB with walker. -IV Antibiotics: Clindamycin, Cefepime (hx of MRSA/osteomyelitis, susceptible to Clinda) -Plan for Ortho consult-Dr Phillip for R BKA evaluation.
--- NOTE | 2021-05-16 08:43 | HMH.HP ---
*Admission Date: 05/15/21 <Regi Greene - 05/16/21 09:12> *Chief complaint: Right foot pain <Regi Greene - 05/16/21 09:12> *History of present illness: Mr. Alcantar is a 56-year-old male with a PCP in [facility]. He has a history of diabetes mellitus. He does not check his blood sugars. He states that he went to the office of Dr. Huertas because of right foot pain. This a.m. he is a poor historian but feels that he has had the pain for several weeks. He denies having noted a wound or any drainage from the foot. With evaluation in the office of Dr. Huertas he was sent to the emergency room for probable admission after surgery. Emergency room documentation as follows: HPI narrative: Mr. Alcantar is a 56 yo male w/ PMH for uncontrolled DM and chronic foot ulcers s/p partial amputation of (R) foot who presents directly from Dr. Izquierdo's office due to concern for progression of infection of R foot and possible necrotizing gas gangrenous species. Patient reports worsening pain and odor from his (R) foot over the last week. He denies any purulent drainainge. No systemic signs of infection. He denies N/V, fevers, chills, abdominal pain, chest pain or other concerns at this time. Documentation per Dr. Huertas as follows: -*History of present illness: Patient is a 56-year-old diabetic male who presented to the podiatry office outpatient this morning for right foot pain and a wound x1 month duration. Wound was noted to be malodorous and necrotic. I discussed possible admission with Dr. Espinoza. Patient was sent to the ER for further work-up including labs which showed white count of 13.2 and CRP of 165.6. CT imaging showed gas gangrene with possible osteomyelitis to the calcaneus. Patient will be admitted per Dr. Espinoza. Podiatry consulted. Discussed with Dr. Espinoza, ER and patient this foot may not be salvageable. We will plan for surgical I&D today with possible/likely orthopedic consult tomorrow. After being evaluated in the emergency room patient was taken to the OR. See specifics as follows: Date of procedure: 05/15/21 Pre-op Diagnosis:: 1. Right foot gas gangrene 2. Cellulitis of right foot 3. Osteomyelitis of right foot 4. DM with neuropathy, ulcer right heel and 5th metatarsal 5. Tobacco abuse 6. Hx of MRSA 7. Morbid Obesity 8. Hx of non-compliance Post-op Diagnosis:: Same Procedure performed:: 1. Right foot incision and drainage 2. Right foot wound debridement x2 3. Right foot bone biopsy Surgeon:: Alyson Huertas DPM This a.m. patient is awakened for assessment. He states he slept well. He states he has no pain in his foot. He denies chest pain and shortness of breath. He does want to eat breakfast. During this visit Dr. Huertas did a dressing change. Following is her note: Assessment and Plan for All Diagnoses:: Surgery 05/15/21: s/p 1. Right foot incision and drainage, 2. Right foot wound debridement x2, 3. Right foot bone biopsy POD #1 *consult orthopedics for R BKA evaluation -Dsg changed this am. Still some malodor noted. Exposed right 5th met base, calcaneus, talus/ankle. Tracking up the achilles tendon. Tissue is dusky and necrotic. -Betadine soaked gauze, DSD applied. -Maintain dressing clean dry and intact to right foot, reinforce as necessary. -NWB with walker. -IV Antibiotics: Clindamycin, Cefepime (hx of MRSA/osteomyelitis, susceptible to Clinda) -Plan for Ortho consult-Dr Phillip for R BKA evaluation. Dr. Huertas explained to him the extent of the infection and the need for amputation. She informed the patient that she had consulted with Dr. Phillip for this. Patient seemed to understand the plan and then asked about a prosthesis. <Regi Greene - 05/16/21 09:41> [facility] History Medical History: Reports:: Congestive Heart Failure, Chronic Obstructive Pulmonary Disease (COPD), Diabetes Mellitus Type 2, Hyperlipidemia, Hypertension, MRSA Denies:: Cancer, Diabetes Mellitus Type 1, Internal Pacemaker, Seizu
[2021-05-16 10:00] VITALS: BMI 33.4
--- NOTE | 2021-05-16 10:37 | HMH.ORTHOCON ---
*Admission Date: 05/15/21 <Laureen Snowden - 05/16/21 10:43> *Reason for consult:: Right foot wound/gangrene <Laureen Snowden 05/16/21 11:23> *History of present illness: Patient is a 56-year-old diabetic male admitted to the acute inpatient service yesterday 05/16/2020 after undergoing I&D of the right foot/ankle performed by Dr. Huertas. He reports he has had right foot pain and wound for approximately 1 month. He presented to the outpatient podiatry clinic yesterday and was subsequently admitted to the inpatient service after his wound was found to be necrotic, malodorous, and laboratory work-up revealed a white count of 13.2 and CRP of 165.6. CT scan was significant for gas gangrene and possible osteomyelitis. This morning he denies pain in his right foot/ankle and states that it feels better following yesterday's debridement. He reports that he lives alone in his own home, and states that his brother comes to visit/check on him often. At baseline, he uses a cane to ambulate. He has had a prior transmetatarsal amputation of the right toes. His PCP is Sadie Stapleton but the patient reports that he has not seen her in a year or more. His past medical history significant for hypertension, hyperlipidemia, peripheral artery disease, congestive heart failure, COPD, diabetes, MRSA, and osteomyelitis. He is a smoker. He denies chest pain, shortness of breath, fevers, chills, rigors, or any other symptoms or concerns at this time. <Laureen Snowden 05/16/21 17:22> [facility] History Medical History: Reports:: Congestive Heart Failure, Chronic Obstructive Pulmonary Disease (COPD), Diabetes Mellitus Type 2, Hyperlipidemia, Hypertension, MRSA Denies:: Cancer, Diabetes Mellitus Type 1, Internal Pacemaker, Seizures <Laureen Snowden 05/16/21 10:43> *Have you ever received a pneumonia vaccine?: Yes <Laureen Snowden 05/16/21 10:43> *Have you received a flu vaccine this season?: Yes <Laureen Snowden 05/16/21 10:43> Other Medical History: Denies: Blood Transfusion Reaction <Laureen Snowden 05/16/21 10:43> Anesthesia experience/problems:: nac <Laureen Snowden 05/16/21 10:43> Other Surgeries: Yes: Colonoscopy, Other (He notes abdominal infection in the past with wound VAC postop). No: Pacemaker <Laureen Snowden 05/16/21 10:43> Amputation: Yes (Right fifth toe and right TMA 2020) <Laureen Snowden 05/16/21 10:43> Fractures: No <Laureen Snowden 05/16/21 10:43> - *Social History Smoking Status: Current every day smoker <Laureen Snowden 05/16/21 10:43> Tobacco Type: cigarettes <Laureen Snowden 05/16/21 10:43> # Packs/Day (cigarettes): 1 <Laureen Snowden 05/16/21 10:43> Alcohol Intake: never <Laureen Snowden 05/16/21 10:43> Substance Use Type: denies use <Laureen Snowden 05/16/21 10:43> *Occupational Status:: disabled <Laureen Snowden 05/16/21 10:43> Housing: apartment <Laureen Snowden 05/16/21 10:43> Household Members: spouse (Getting ) <Laureen Snowden 05/16/21 10:43> *Travel in the last 8 weeks: None <Laureen Snowden 05/16/21 10:43> Family Hx:: Asthma, Cancer, Diabetes, Hyperlipidemia, Hypertension, Stroke, Thyroid Disorder <Laureen Snowden 05/16/21 10:43> Review of Systems - Review of Systems Review of systems:: pertinent systems reviewed and negative unless documented below <Laureen Snowden 05/16/21 11:33> - Constitutional Denies anorexia, Denies body ache(s), Denies chills, Denies fatigue, Denies fever(s), Denies headache(s), Denies weakness <Laureen Snowden 05/16/21 11:33> - Eyes Denies blurry vision, Denies change in vision <Laureen Snowden 05/16/21 11:33> - ENT Denies abnormal hearing, Denies dizziness, Denies difficulty swallowing, Denies headache(s), Denies nasal congestion, Denies nasal discharge, Denies neck pain, Denies pain with swallowing, Denies sore throat <Laureen Snowden - 05/16/21 11:33> - *Cardiovascular Denies chest pain, Denies chest pain at rest, Denies ches
[2021-05-16 12:15] LABS: POC Glucose,Bedside 168 (70-110)
--- NOTE | 2021-05-16 12:46 | HMH.PHAINT ---
home medication list verified using lists from outpatient pharmacy and physician offices
--- NOTE | 2021-05-16 14:18 | XR_ITS ---
FINAL REPORT CLINICAL HISTORY: Osteomyelitis foot/ankle; for BKA FINDINGS: RIGHT TIBIA FIBULA Two views demonstrate no acute fracture or dislocation. The joint spaces appear normal. The visualized bony structures are well aligned. Mild vascular calcification is noted. IMPRESSION: No acute process. Reviewed, Interpreted and Dictated by Emilio Armenta III, MD Transcribed by Regi Almazan Authenticated by Emilio Armenta III, MD on 05/16/2021 04:34:45 PM [facility]
[2021-05-16 15:17] VITALS: BP 110/54; PULSE 104; RESP 18; TEMP 36.9; O2SAT 94
--- NOTE | 2021-05-16 15:26 | HMH.PHAINT ---
Addendum entered and electronically signed by Kimberly Leiva PharmD 05/17/21 08:59: ALSO RECEIVED LIST FROM [facility] [employer] AND VERIFIED HOME MED LIST Original Note: Home med rec complete. Verfied meds with pt, home pharmacy, and insurance list
[2021-05-16 16:02] LABS: POC Glucose,Bedside 423 (70-110)
--- NOTE | 2021-05-16 16:07 | PC.NURSE ---
PT IS RESTING IN BED. ALERT AND ORIENTED X4. PT STATES HE FEELS PAIN IN HIS RT FOOT BUT REFUSES TO TAKE ANY PAIN MEDICATION. DRESSING TO LT FOOT WAS CHANGED PER . PT HAS BEEN SLEEPING ON AND OFF T/O THE SHIFT. PT WAS NPO FOR ORTHO CONSULT TODAY BUT PT DECIDED HE WANTED TO TALK EVERYTHING OVER WITH HIS BROTHER BEFORE HE DECIDED TO AGREE TO THE BKA. PT'S BROTHER CALLED BACK AND STATED HE WOULD BE HERE TO VISIT PT AROUND 1700. PT'S BROTHER STATED IF HE COULD NOT TALK TO AT THAT TIME THEN HE WOULD CALL THE SPECIALTY CLINIC TO TALK TO HER OVER THE PHONE. THE PLAN WILL BE FOR PT TO BE NPO AFTER 0600 FOR POSSIBLE BKA AT [id number] IN THE AFTERNOON IF PT IS AGREEABLE. WILL CONTINUE TO MONITOR.
[2021-05-16 16:11] LABS: Basophils # 0.1 K/mm3 (0-0.2); Basophils % 0.4 % (0.1-2.0); Eosinophils % 0.2 % (0.1-12.0); Hematocrit 34.8 % (42.0-52.0); Hemoglobin 11.1 g/dL (14.1-18.0); Lymphocytes # 0.8 K/mm3 (0.7-4.5); Lymphocytes % 6.2 % (10-50); Mean Corpuscular HGB Conc 31.9 g/dL (31.8-35.4); Mean Corpuscular Hemoglobin 28.3 pg (27.0-31.2); Mean Corpuscular Volume 88.6 fl (80-94); Mean Platelet Volume 9.3 fl (7.4-10.4); Monocytes # 0.7 K/mm3 (0.1-1.0); Monocytes % 5.5 % (1.7-9.3); Neutrophils # 11.6 K/mm3 (1.8-7.8); Neutrophils % 87.6 % (37.0-80.0); Platelet Count 275 K/mm3 (142-424); Red Blood Count 3.93 M/mm3 (4.60-6.20); Red Cell Distribution Width 13.7 % (11.5-17.5); White Blood Count 13.3 K/mm3 (4.8-10.8)
[2021-05-16 16:19] LABS: MANUAL DIFFERENTIAL MANUAL DIFFERENTIAL (MANUAL DIFF)
[2021-05-16 16:33] LABS: Alanine Aminotransferase 13 U/L (12-78); Albumin Level 3.3 g/dl (3.5-5.0); Alkaline Phosphatase 83 U/L (38-126); Anion Gap 13.4 mEq/L (5-15); Aspartate Amino Transferase 29 U/L (17-59); Bilirubin,Total 0.4 mg/dl (0.2-1.3); Blood Urea Nitrogen 22 mg/dl (9-20); Carbon Dioxide 22 mmol/L (22.0-30.0); Chloride 102 mmol/L (98-107); Creatinine Clearance Estimated 109 mL/min (50-200); Estimated Glomerular Filt Rate 63 ml/min (>60); GFR (African American) 76 ML/MIN (>60); Globulin 3.2 g/dL (1.3-3.2); Glucose 366 mg/dl (74-100); Potassium 5.4 mmoL/L (3.5-5.1); Sodium 132 mmol/L (136-145); Total Protein,Serum 6.5 g/dl (6.3-8.2)
[2021-05-16 18:10] LABS: Lymphocytes % 8 % (10-50); Monocytes % 7 % (2-9); Neutrophils % 85 % (42-76); Platelet Estimate Normal; Total Cells Counted 100
[2021-05-16 20:00] VITALS: BP 91/64; PULSE 92; RESP 18; TEMP 37.1; O2SAT 91
[2021-05-17] VITALS (18 sets, daily range): BP systolic 104–147; BP diastolic 59–85; PULSE 68–93; RESP 16–20; TEMP 36.3–37.9; O2SAT 90–100; BMI 33.8
[2021-05-17 04:58] LABS: POC Glucose,Bedside 181 (70-110)
--- NOTE | 2021-05-17 06:09 | PC.NURSE ---
PATIENT REST WELL FOR THIS RN, THIS RN EXPLAINED TO PATIENT THAT HE WOULD NEED TO EAT HIS BREAKFAST EARLY THIS AM TO PREPARE FOR AN AFTERNOON SURGERY. PATIENT STATED, I DON'T WANT TO EAT THIS RN CONTINUED TO ENCOURAGE PATIENT TO EAT BEFORE HE BECOMES NPO. PATIENT CONTINUED TO REFUSE
[2021-05-17 06:37] LABS: Chloride 102 mmol/L (98-107); Sodium 131 mmol/L (136-145)
[2021-05-17 06:40] LABS: Carbon Dioxide 20 mmol/L (22.0-30.0)
[2021-05-17 06:43] LABS: Blood Urea Nitrogen 18 mg/dl (9-20); Creatinine Clearance Estimated 120 mL/min (50-200); Estimated Glomerular Filt Rate 69 ml/min (>60); GFR (African American) 84 ML/MIN (>60)
[2021-05-17 06:52] LABS: Basophils # 0.1 K/mm3 (0-0.2); Basophils % 0.5 % (0.1-2.0); Eosinophils # 0.1 K/mm3 (0.0-0.4); Eosinophils % 0.6 % (0.1-12.0); Hematocrit 32.9 % (42.0-52.0); Hemoglobin 10.6 g/dL (14.1-18.0); Lymphocytes # 1.9 K/mm3 (0.7-4.5); Lymphocytes % 14.7 % (10-50); Mean Corpuscular HGB Conc 32.3 g/dL (31.8-35.4); Mean Corpuscular Hemoglobin 28.3 pg (27.0-31.2); Mean Corpuscular Volume 87.7 fl (80-94); Mean Platelet Volume 9.8 fl (7.4-10.4); Monocytes # 0.9 K/mm3 (0.1-1.0); Monocytes % 7.2 % (1.7-9.3); Neutrophils # 9.7 K/mm3 (1.8-7.8); Platelet Count 255 K/mm3 (142-424); Red Blood Count 3.75 M/mm3 (4.60-6.20); Red Cell Distribution Width 13.7 % (11.5-17.5); White Blood Count 12.7 K/mm3 (4.8-10.8)
--- NOTE | 2021-05-17 08:23 | HMH.ACPN2 ---
Internal Medicine - PN: Subj *Date: 05/17/21 *Time: 08:23 Interval history: Patient with no new complaints today. He has agreed to have right BKA today. He is NPO for surgery. Exam Vital signs and Labs for Last 24 Hours: Temp Pulse Resp BP Pulse Ox 100.3 F H 90 16 121/60 90 L 05/17/21 04:00 05/17/21 04:00 05/17/21 04:00 05/17/21 04:00 05/17/21 04:00 Laboratory Results - last 24 hr 05/16/21 12:08: POC Glucose 168 H 05/16/21 15:45: WBC 13.3 H D, RBC 3.93 L, Hgb 11.1 L, Hct 34.8 L, MCV 88.6, MCH 28.3, MCHC 31.9, RDW 13.7, Plt Count 275, MPV 9.3, Neut % (Auto) 87.6 H, Lymph % (Auto) 6.2 L, Wayne % (Auto) 5.5, Eos % (Auto) 0.2, Baso % (Auto) 0.4, Neut # (Auto) 11.6 H, Lymph # (Auto) 0.8, Wayne # (Auto) 0.7, Eos # (Auto) 0.0, Baso # (Auto) 0.1, Total Counted 100, Neutrophils % (Manual) 85 H, Lymphocytes % (Manual) 8 L, Monocytes % (Manual) 7, Platelet Estimate Normal 05/16/21 15:45: Sodium 132 L, Potassium 5.4 H, Chloride 102, Carbon Dioxide 22, Anion Gap 13.4, BUN 22 H, Creatinine 1.20, Estimated Creat Clear 109, Estimated GFR 63, Est GFR ( Amer) 76 D, Glucose 366 H D, Calcium 9.0, Total Bilirubin 0.4, AST 29 D, ALT 13, Alkaline Phosphatase 83, Total Protein 6.5, Albumin 3.3 L, Globulin 3.2, Albumin/Globulin Ratio 1.0 L 05/16/21 15:54: POC Glucose 423 H* 05/17/21 04:50: POC Glucose 181 H 05/17/21 05:42: WBC 12.7 H, RBC 3.75 L, Hgb 10.6 L, Hct 32.9 L, MCV 87.7, MCH 28.3, MCHC 32.3, RDW 13.7, Plt Count 255, MPV 9.8, Neut % (Auto) 77.0, Lymph % (Auto) 14.7, Wayne % (Auto) 7.2, Eos % (Auto) 0.6, Baso % (Auto) 0.5, Neut # (Auto) 9.7 H, Lymph # (Auto) 1.9, Wayne # (Auto) 0.9, Eos # (Auto) 0.1, Baso # (Auto) 0.1 05/17/21 05:42: Sodium 131 L, Chloride 102, Carbon Dioxide 20 L, BUN 18, Creatinine 1.10, Estimated Creat Clear 120, Estimated GFR 69, Est GFR ( Amer) 84 Vital Signs - 24 hr 05/16/21 15:17 05/16/21 20:00 05/17/21 00:00 Temperature 98.4 F 98.8 F 99.6 F Pulse Rate [Radial] 104 H 92 H 90 Respiratory Rate 18 18 18 Blood Pressure [Right Arm] 110/54 L 91/64 L 147/85 H 02 Sat by Pulse Oximetry 94 L 91 L 94 L 05/17/21 04:00 Temperature 100.3 F H Pulse Rate [Radial] 90 Respiratory Rate 16 Blood Pressure [Right Arm] 121/60 02 Sat by Pulse Oximetry 90 L I & O for Last 24 hours: Intake & Output 05/14/21 05/15/21 05/16/21 05/17/21 23:59 23:59 23:59 23:59 Intake Total 1300 / 1300 Output Total 800 / 800 0 / 0 Balance 500 / 500 0 / 0 Weight 248 lb 5 oz 246 lb 14.684 oz 249 lb 11.2 oz Microbiology Reports for the Last 24 Hours: Microbiology 05/15/21 16:30 Foot,Right - Right Gram Stain - Final 05/15/21 16:40 Bone - Right Bone Culture - Preliminary 05/15/21 16:40 Bone - Right Bone Culture - Preliminary - Constitutional no acute distress - *Routine Respiratory Exam Present: CTA bilaterally - *Routine Cardiovascular Exam Present: RRR - *Routine Skin Exam Comments: Wounds reviewed with Dr. Huertas at bedside today Assessment and Plan (1) Gas gangrene Status: Acute Category: Medical Code(s): A48.0 - Gas gangrene (2) Ulcer of right foot due to type 2 diabetes mellitus Status: Acute Category: Medical Code(s): E11.621 - Type 2 diabetes mellitus with foot ulcer; L97.519 - Non-pressure chronic ulcer of other part of right foot with unspecified severity (3) Foot osteomyelitis, right Status: Acute Category: Medical Code(s): M86.9 - Osteomyelitis, unspecified (4) Diabetic neuropathy, type II diabetes mellitus Status: Acute Category: Medical Code(s): E11.40 - Type 2 diabetes mellitus with diabetic neuropathy, unspecified (5) PAD (peripheral artery disease) Status: Acute Category: Medical Code(s): I73.9 - Peripheral vascular disease, unspecified (6) Cellulitis of right foot Status: Acute Category: Medical Code(s): L03.115 - Cellulitis of right lower limb (7) Tobacco abuse Status: Chronic Category: Medical Code(s): Z72.0
--- NOTE | 2021-05-17 08:24 | HMH.ACPN2 ---
<Regi Greene - Last Filed: 05/17/21 08:24> Internal Medicine - PN: Subj *Date: 05/17/21 *Time: 08:24 Interval history: Patient awakened for exam. He states he has slept well. Denies any foot/leg pain. He feels his breathing is normal and he denies chest pain. Orthopedic consult noted. Below the knee amputation planned for today. Exam Vital signs and Labs for Last 24 Hours: Temp Pulse Resp BP Pulse Ox 98.0 F 84 18 119/60 100 05/17/21 08:00 05/17/21 08:00 05/17/21 08:00 05/17/21 08:00 05/17/21 08:00 Laboratory Results - last 24 hr 05/16/21 12:08: POC Glucose 168 H 05/16/21 15:45: WBC 13.3 H D, RBC 3.93 L, Hgb 11.1 L, Hct 34.8 L, MCV 88.6, MCH 28.3, MCHC 31.9, RDW 13.7, Plt Count 275, MPV 9.3, Neut % (Auto) 87.6 H, Lymph % (Auto) 6.2 L, Terrell % (Auto) 5.5, Eos % (Auto) 0.2, Baso % (Auto) 0.4, Neut # (Auto) 11.6 H, Lymph # (Auto) 0.8, Terrell # (Auto) 0.7, Eos # (Auto) 0.0, Baso # (Auto) 0.1, Total Counted 100, Neutrophils % (Manual) 85 H, Lymphocytes % (Manual) 8 L, Monocytes % (Manual) 7, Platelet Estimate Normal 05/16/21 15:45: Sodium 132 L, Potassium 5.4 H, Chloride 102, Carbon Dioxide 22, Anion Gap 13.4, BUN 22 H, Creatinine 1.20, Estimated Creat Clear 109, Estimated GFR 63, Est GFR ( Amer) 76 D, Glucose 366 H D, Calcium 9.0, Total Bilirubin 0.4, AST 29 D, ALT 13, Alkaline Phosphatase 83, Total Protein 6.5, Albumin 3.3 L, Globulin 3.2, Albumin/Globulin Ratio 1.0 L 05/16/21 15:54: POC Glucose 423 H* 05/17/21 04:50: POC Glucose 181 H 05/17/21 05:42: WBC 12.7 H, RBC 3.75 L, Hgb 10.6 L, Hct 32.9 L, MCV 87.7, MCH 28.3, MCHC 32.3, RDW 13.7, Plt Count 255, MPV 9.8, Neut % (Auto) 77.0, Lymph % (Auto) 14.7, Terrell % (Auto) 7.2, Eos % (Auto) 0.6, Baso % (Auto) 0.5, Neut # (Auto) 9.7 H, Lymph # (Auto) 1.9, Terrell # (Auto) 0.9, Eos # (Auto) 0.1, Baso # (Auto) 0.1 05/17/21 05:42: Sodium 131 L, Chloride 102, Carbon Dioxide 20 L, BUN 18, Creatinine 1.10, Estimated Creat Clear 120, Estimated GFR 69, Est GFR ( Amer) 84 I & O for Last 24 hours: Intake & Output 05/14/21 05/15/21 05/16/21 05/17/21 11:59 11:59 11:59 11:59 Intake Total 0 / 0 1300 / 1300 Output Total 0 / 0 800 / 800 Balance 0 / 0 500 / 500 Weight 325 lb 246 lb 14.684 oz 249 lb 11.2 oz Microbiology Reports for the Last 24 Hours: Microbiology 05/15/21 16:30 Foot,Right - Right Gram Stain - Final 05/15/21 16:40 Bone - Right Bone Culture - Preliminary 05/15/21 16:40 Bone - Right Bone Culture - Preliminary - Constitutional no acute distress Comments: Awakened for exam - *Routine Respiratory Exam Present: CTA bilaterally (Anteriorly and posteriorly) - *Routine Cardiovascular Exam Present: RRR - *Routine Abdominal Exam Present: soft, normoactive bowel sounds. Absent: tenderness - *Routine Extremities Exam Present: edema (Right lower leg: No edema of the left leg) - *Routine Neurological Exam Present: alert, oriented X3 Assessment and Plan (1) Gas gangrene Status: Acute Category: Medical Code(s): A48.0 - Gas gangrene (2) Ulcer of right foot due to type 2 diabetes mellitus Status: Acute Category: Medical Code(s): E11.621 - Type 2 diabetes mellitus with foot ulcer; L97.519 - Non-pressure chronic ulcer of other part of right foot with unspecified severity (3) Foot osteomyelitis, right Status: Acute Category: Medical Code(s): M86.9 - Osteomyelitis, unspecified (4) Diabetic neuropathy, type II diabetes mellitus Status: Acute Category: Medical Code(s): E11.40 - Type 2 diabetes mellitus with diabetic neuropathy, unspecified (5) PAD (peripheral artery disease) Status: Acute Category: Medical Code(s): I73.9 - Peripheral vascular disease, unspecified (6) Cellulitis of right foot Status: Acute Category: Medical Code(s): L03.115 - Cellulitis of right lower limb (7) Tobacco abuse Status: Chronic Category: Medical Code(s): Z72.0 - Tobacco use - Assessment and francisco javier
[2021-05-17 08:34] LABS: Anion Gap 13.6 mEq/L (5-15); Potassium 4.6 mmoL/L (3.5-5.1)
[2021-05-17 08:38] LABS: Calcium 8.4 mg/dl (8.4-10.2); Glucose 183 mg/dl (74-100)
--- NOTE | 2021-05-17 08:46 | HMH.ORTHPN ---
Subjective Date: 05/17/21 Time: 08:45 Principal diagnosis: Right foot gas gangrene Interval history: Patient seen and vital weighted with Dr. Espinoza. Patient's brother did come up to the hospital yesterday. He is aware of the plan. Patient has agreed to proceed with right BKA surgery with Dr. Phillip. Does have a pressure wound to the left lateral ankle stable. Well offloading apply gauze pad. PN: Obj Ex Vital signs: Temp Pulse Resp BP Pulse Ox 98.0 F 84 18 119/60 100 05/17/21 08:00 05/17/21 08:00 05/17/21 08:00 05/17/21 08:00 05/17/21 08:00 - Constitutional chronically ill appearing - Routine HEENT Exam Head: Present: normocephalic - Routine Respiratory Exam Absent: respiratory distress - Routine Abdominal Exam Present: obese - Routine Extremities Exam Present: edema, calf tenderness - Detailed Lower Extremity Exam Ankle image: 1 - Left lateral ankle ulcer has no drainage, purulence or malodor noted. Mild periwound erythema with localized edema. No pain to palpation. The wound is approximately 1 x 1 x 0.1cm, through skin into subcutaneous tissue. It does not extend deep into deep fascia or to the distal fibula bone. Right lower extremity dressing clean dry and intact. It was not removed or changed this morning. Progress Note: A&P (1) Gas gangrene Status: Acute (2) Ulcer of right foot due to type 2 diabetes mellitus Status: Acute (3) Foot osteomyelitis, right Status: Acute (4) Diabetic neuropathy, type II diabetes mellitus Status: Acute (5) PAD (peripheral artery disease) Status: Acute (6) Cellulitis of right foot Status: Acute (7) Tobacco abuse Status: Chronic (8) Ulcer of left ankle Status: Acute Assessment and Plan for All Diagnoses:: Surgery 05/15/21: s/p 1. Right foot incision and drainage, 2. Right foot wound debridement x2, 3. Right foot bone biopsy POD #2 Adequate bleeding noted to ankle. Overall there is a poor prognosis as patient had necrotic tissue, malodor and soft bone likely consistent with osteomyelitis to the calcaneus talus as well as to the ankle joint including the distal tibia. Unfortunately I do not think this is a salvageable situation given the extent of infection as well as the tracking along the entire plantar foot as well as along the peroneal and Achilles tendons. We will plan to consult orthopedics for 2nd opinion and BKA evaluation. -Dsg to right foot not changed this am. -Mild malodor noted at bedside. -Maintain dressing clean dry and intact to right foot, reinforce as necessary. Left ankle ulcer: new gauze pad applied. Off load with pillows. No new SOI. -Order mupirocin ointment to apply to the wound with gauze pad. -NWB to RLE with walker. -IV Antibiotics: Clindamycin, Cefepime (hx of MRSA/osteomyelitis, susceptible to Clinda) -Plan for Ortho consult-Dr Phillip for R BKA later today.
--- NOTE | 2021-05-17 08:57 | HMH.ORTHPN ---
Subjective Date: 05/17/21 <Laureen Snowden 05/17/21 08:59> Time: 08:30 <Laureen Snowden 05/17/21 08:59> Principal diagnosis: Right foot gas gangrene <Laureen Snowden 05/17/21 08:59> Interval history: Patient is a 56-year-old male admitted to the acute inpatient service 05/15/2021 following debridement and incision and drainage of the right foot/ankle. This morning he is lying comfortably in bed. He reports mild pain in his right foot/ankle that he says is well controlled with medication. He states that he had the chance to speak with his brother yesterday and is agreeable to proceed with a right BKA today. His past medical history is significant for hypertension, hyperlipidemia, peripheral artery disease, congestive heart failure, COPD, diabetes, MRSA, and osteomyelitis. He is a smoker. He denies chest pain, shortness of breath, fevers, chills, rigors, or any other symptoms or concerns at this time. <Laureen Snowden 05/17/21 14:27> PN: Obj Ex Vital signs: Temp Pulse Resp BP Pulse Ox 98.7 F 81 20 124/70 92 L 05/17/21 18:45 05/17/21 18:45 05/17/21 18:45 05/17/21 18:45 05/17/21 18:45 <PhillipJourdan Bill - 05/17/21 20:53> Temp Pulse Resp BP Pulse Ox 98.0 F 84 18 119/60 100 05/17/21 08:00 05/17/21 08:00 05/17/21 08:00 05/17/21 08:00 05/17/21 08:00 <Laureen Snowden 05/17/21 08:59> - Constitutional no acute distress, cooperative <Laureen Snowden 05/17/21 09:09> - Routine HEENT Exam Head: Present: normocephalic, atraumatic <Laureen Snowden 05/17/21 09:09> Eye: Present: EOMI, PERRL <Laureen Snowden 05/17/21 09:09> ENT: Present: mucous membranes moist <Laureen Snowden 05/17/21 09:09> - Routine Neck Exam Present: supple, full ROM, trachea midline. Absent: JVD, lymphadenopathy <Laureen Snowden 05/17/21 09:09> - Routine Respiratory Exam Present: CTA bilaterally. Absent: accessory muscle use, respiratory distress <Laureen Snowden 05/17/21 09:09> Comments: Symmetric chest movement, able to speak in complete sentences <Laureen Snowden 05/17/21 09:09> - Routine Cardiovascular Exam Present: RRR, Normal S1, Normal S2. Absent: JVD <Laureen Snowden 05/17/21 09:09> Comments: Normal peripheral pulses <Laureen Snowden 05/17/21 09:09> - Routine Abdominal Exam Present: soft, normoactive bowel sounds. Absent: tenderness <Laureen Snowden 05/17/21 09:09> - Routine Extremities Exam Absent: calf tenderness <Laureen Snowden 05/17/21 09:09> Comments: Upon examination of the right lower extremity: Dressings present over the right foot/ankle are clean, dry, and intact. The skin above the dressings is intact. No lacerations, abrasions, erythema, or ecchymosis noted. Thigh and calf are soft and nontender; Homans' sign is negative. No clinical evidence of DVT noted. Sensation to light touch is grossly intact. Patient is actively mobilizing the knee. <Laureen Snowden 05/17/21 14:27> - Routine Skin Exam Present: intact, warm, normal turgor. Absent: jaundice <Laureen Snowden 05/17/21 09:09> - Routine Neurological Exam Present: alert, oriented X3, moving all extremities, normal tone, normal speech. Absent: sensory deficit, motor deficit, altered mental status <Laureen Snowden 05/17/21 09:09> - Routine Psychiatric Exam Present: normal affect, cooperative <Laureen Snowden 05/17/21 09:09> Progress Note: A&P (1) Gas gangrene Status: Acute (2) Ulcer of right foot due to type 2 diabetes mellitus Status: Acute (3) Foot osteomyelitis, right Status: Acute (4) Diabetic neuropathy, type II diabetes mellitus Status: Acute (5) PAD (peripheral artery disease) Status: Acute (6) Cellulitis of right foot Status: Acute (7) Tobacco abuse Status: Chronic (8) Ulcer of left ankle Status: Acute <Jourdan Phillip - 05/17/21 20:53> (1) Gas gangrene Status: Acute (2) Ulcer of right foot due to type 2 mirtha
--- NOTE | 2021-05-17 11:24 | PC.NURSE ---
Addendum entered by Jasvir Razo RN 05/17/21 11:25: Another RN has also encouraged pt to bath and pt still refuses at this time. Original Note: Pt has refused bath multiple times this am, and refuses to put gown on and remove under pants for surgery. This RN explained need for sterile conditions.
[2021-05-17 11:33] LABS: POC Glucose,Bedside 228 (70-110)
--- NOTE | 2021-05-17 11:40 | PC.NURSE ---
This am pt refused levemir after this RN explained what was ordered. Pt is now refusing humalog, and states the levemir works fine at home, i dont know why it isnt here. This RN educated pt that various factors such as infection can elevate blood sugar.
--- NOTE | 2021-05-17 13:23 | P.PN_ITS ---
[facility] Anesthesia Checklist - Patient Identification Patient Identification: Arm Band, Verbal (Name & ) - Structural Data Admitted From: Inpatient Planned Operative Procedure/s: Right BKA Consent for Planned Operative Procedure(s) Verified: Yes Verified Documents: Surgical Consent - NPO Status Verified Time NPO: 00:00 - Chart Verification Results Verified: CBC, BMP - Additional verifications Anesthesia Reactions: No Hx Blood Transfusions: No Blood Transfusion Reaction: No - Airway Assessment C-Spine Mobility Assessed: Yes TMJ Mobility Assessed: Yes - Neurological Assessment Level of Consciousness: Awake, Alert, Appropriate - Anesthesia Plan Anesthesia Risk discussed: Yes ASA Class: III Anesthesia Type: General [facility] History Medical History: Reports:: Congestive Heart Failure, Chronic Obstructive Pul monary Disease (COPD), Diabetes Mellitus Type 2, Hyperlipidemia, Hypertension, MRSA Denies:: Cancer, Diabetes Mellitus Type 1, Internal Pacemaker, Seizures *Have you ever received a pneumonia vaccine?: Yes *Have you received a flu vaccine this season?: Yes Other Medical History: Denies: Blood Transfusion Reaction Anesthesia experience/problems:: none Other Surgeries: Yes: Colonoscopy, Other (He notes abdominal infection in the past with wound VAC postop). No: Pacemaker Amputation: Yes (Right fifth toe and right TMA 2020) Fractures: No - *Social History Smoking Status: Current every day smoker Tobacco Type: cigarettes # Packs/Day (cigarettes): 1 Alcohol Intake: never Substance Use Type: denies use *Occupational Status:: disabled Housing: house Household Members: spouse *Travel in the last 8 weeks: None Family Hx:: Asthma, Cancer, Diabetes, Hyperlipidemia, Hypertension, Stroke, Thyroid Disorder
--- NOTE | 2021-05-17 14:19 | PC.NURSE ---
Pt is going down to surgery
--- NOTE | 2021-05-17 15:44 | PC.NURSE ---
Notified surgery that [facility] stated that pt has never received vanc here before. Suggested that dapomycin was given back in july 2020. That would be a good alternative to give.
--- NOTE | 2021-05-17 16:58 | PC.NURSE ---
Pt continues to be off floor in surgery. Have paged Dr. Anaya in RE to anaerobic blood cx's being positive. Awaiting cb at this time.
--- NOTE | 2021-05-17 17:13 | PC.NURSE ---
Dr. Anaya aware of positive anaerobic cx's. NNO, pt
--- NOTE | 2021-05-17 17:50 | PC.NURSE ---
Pt continues to be off floor. is also aware of pos blood cx's prelim. NNO.
--- NOTE | 2021-05-17 18:16 | P.PN_ITS ---
[facility] Anesthesia Record Part I Intake, IV Amount: 900 Estimated blood loss (mL): 50 Urine output (mL): 0 Blood Pressure: 120/65 SaO2: 93 Pulse Rate: 84 Respiratory Rate: 20 Temperature: 97.4 F Patient is:: Drowsy, Oral/Nasal airway Stable to PACU at:: 18:10
[2021-05-17 18:27] LABS: POC Glucose,Bedside 248 (70-110)
--- NOTE | 2021-05-17 18:35 | PC.NURSE ---
1819-fsbs checked with results of 248, notified JERALD Ruiz, no further orders at this time
--- NOTE | 2021-05-17 18:52 | PC.NURSE ---
1839-detailed report called to MICHELLE Beavers 1841-pt transported to 2nd floor room 207 via hospital bed w/laith rails up and left in care of MICHELLE Beavers with bed locked in lowest position, vss, pt stable
--- NOTE | 2021-05-17 20:54 | HMH.OPNOTE ---
Date of procedure: 05/17/21 Pre-op Diagnosis:: 1. Gas gangrene, right foot 2. Nonhealing diabetic foot ulcer right foot 3. Osteomyelitis, right foot 4. Cellulitis, right foot 5. Peripheral artery disease 6. Diabetic neuropathy 7. Tobacco abuse Post-op Diagnosis:: Same Procedure performed:: Below-knee amputation, right leg Surgeon:: Jourdan Phillip MD Slab Stripper(s):: Laureen Snowden PA-C GAS OPERATOR:: Virginia Cano Anesthesia: GETA Estimated blood loss (mL): 50 Clinical Note:: Patient is a 56-year-old diabetic male admitted to the acute inpatient service on 05/16/2020 after undergoing I&D of the right foot/ankle performed by Dr. Huertas. Patient had right foot pain and wound for approximately 1 month. On presentation to the podiatry clinic yesterday the wound was found to be necrotic, malodorous, and laboratory work-up revealed a white count of 13.2 and CRP of 165.6. CT scan was significant for gas gangrene and possible osteomyelitis. Because of the extent of ulceration and bone involvement, Dr. Huertas has recommended a below-knee amputation as the neck step in his management. Following a detailed discussion patient is unable to this. Patient lives alone in his own home, and states that his brother comes to visit/check on him often. At baseline, he uses a cane to ambulate. He has had a prior transmetatarsal amputation of the right toes. His PCP is Sadie Stapleton but the patient reports that he has not seen her in a year or more. His past medical history is significant for hypertension, hyperlipidemia, peripheral artery disease, congestive heart failure, COPD, diabetes mellitus type II, MRSA, and osteomyelitis. He is a chronic smoker. Following evaluation on the floor, I had a detailed discussion regarding management options with the patient. Patient elected to proceed with a RIGHT below-knee amputation. I have discussed about the procedure, risks, benefits and alternatives. The patient expressed a full understanding and wished to proceed. I told him that we would plan on doing a right below-knee amputation but if the circulation is poor at this level, or there is evidence of deep infection, we would go ahead and perform an above-knee amputation. The complications discussed include but are not limited to infection, bleeding, injury to nerves and blood vessels, wound healing problems, prolonged pain and swelling, tender scar, further infection requiring oral or IV antibiotics, phantom pain, CRPS (complex regional pain syndrome- pain, sensory and temperature changes, swelling and stiffness), incomplete relief of pain, incomplete return of function, DVT, PE, ring sequestrum, likely need for further surgery in future and anesthetic problems including stroke, heart attack, and . I have discussed how there is a small but real possibility of loss of use of the limb, loss of the limb (proximal amputation) or loss of life itself. I have also explained how additional surgery may be required if there are any complications. I have also discussed the postoperative management, recovery and rehabilitation and the likely need for physical therapy, prosthetic limb fitting, the possibility of stiffness, osteomyelitis, chronic pain and we've also discussed the option of nonsurgical treatment. I strongly advised the patient to completely stop smoking and explained the rationale behind this advice.? The patient understood and asked appropriate questions. All the questions were answered and he verbalized a good understanding. He desires to proceed with the below knee amputation of the right lower extremity. Patient understood the risks, agreed to proceed with surgery, signed the consent form and no guarantees or assurances were given or implied. Please refer to orthopedic consult note for full details. Operative findings:: Healthy appearing and well perfused muscle and skin flaps at the level of the below knee amputation.? The skin is somewhat atrophic over the lower t
[2021-05-17 21:45] LABS: POC Glucose,Bedside 392 (70-110)
--- NOTE | 2021-05-17 23:11 | PC.NURSE ---
Patient refused insulin administration for 2100 FSBS. This RN explained the importance of controlling his DM, especially with his sugar level. Patient stated, I'ts been a lot higher than that!
--- NOTE | 2021-05-17 23:28 | PC.NURSE ---
This RN walked into patient's room and found patient eating chicken, side dishes and biscuits from a fast food place. This RN educated patient the importance of advancing diet as tolerated and the proper diet for DM. Patient stated, it has never been that way before!
[2021-05-18 01:30] VITALS: BP 92/57; PULSE 60; RESP 18; O2SAT 94
[2021-05-18 04:00] VITALS: BP 110/65; PULSE 61; RESP 18; TEMP 37; O2SAT 95
[2021-05-18 05:22] LABS: POC Glucose,Bedside 301 (70-110)
[2021-05-18 05:35] VITALS: BMI 32.9
--- NOTE | 2021-05-18 06:35 | PC.NURSE ---
Pt slept well this shift. Pt voiced no c/o of pain, N/V. Pt remains on 2L NC with O2 sats >90%. Pt's dressing to right leg is C/D/I. Emptied 60ml from drain in right leg. Pt refused 06:00 insulin with a blood sugar of 301. Educated pt on importance of controlling DM.
--- NOTE | 2021-05-18 08:16 | HMH.ACPN2 ---
<Giulia Geronimo - Last Filed: 05/18/21 08:16> Internal Medicine - PN: Subj *Date: 05/18/21 *Time: 08:16 Interval history: Patient had right BKA yesterday. He tolerated the procedure well and states he has minimal pain this morning. He states he was able to sleep throughout the night and he did eat breakfast this morning. Exam Vital signs and Labs for Last 24 Hours: Temp Pulse Resp BP Pulse Ox 98.6 F 61 18 110/65 95 05/18/21 04:00 05/18/21 04:00 05/18/21 04:00 05/18/21 04:00 05/18/21 04:00 Laboratory Results - last 24 hr 05/17/21 05:42: Potassium 4.6, Anion Gap 13.6, Glucose 183 H D, Calcium 8.4 05/17/21 11:21: POC Glucose 228 H 05/17/21 18:17: POC Glucose 248 H 05/17/21 21:36: POC Glucose 392 H* 05/18/21 05:13: POC Glucose 301 H* I & O for Last 24 hours: Intake & Output 05/15/21 05/16/21 05/17/21 05/18/21 11:59 11:59 11:59 11:59 Intake Total 0 / 0 1300 / 1300 900 / 900 Output Total 0 / 0 800 / 800 760 / 760 Balance 0 / 0 500 / 500 140 / 140 Weight 325 lb 246 lb 14.684 oz 249 lb 11.2 oz 243 lb 6.4 oz Microbiology Reports for the Last 24 Hours: Microbiology 05/15/21 12:10 Blood Blood Culture - Preliminary 05/17/21 16:46 Leg,Right - Wound Gram Stain - Final 05/15/21 16:15 Foot,Right - Wound - Final 05/15/21 12:10 Blood Blood Culture - Preliminary 05/15/21 16:40 Bone - Right Bone Culture - Preliminary Gram Negative Rods 05/15/21 16:40 Bone - Right Bone Culture - Preliminary Gram Negative Rods 05/15/21 16:30 Foot,Right - Right Gram Stain - Final 05/15/21 16:30 Foot,Right - Right Surgical Biopsy Culture - Preliminary Gram Negative Rods - Constitutional no acute distress - *Routine Respiratory Exam Present: CTA bilaterally - *Routine Cardiovascular Exam Present: RRR - *Routine Abdominal Exam Present: soft, normoactive bowel sounds. Absent: tenderness - *Routine Extremities Exam Absent: cyanosis, clubbing, edema Comments: Right BKA with dressing in place - *Routine Skin Exam Present: warm. Absent: rash - *Routine Neurological Exam Present: alert, oriented X3 Assessment and Plan (1) Gas gangrene Status: Acute Category: Medical Code(s): A48.0 - Gas gangrene (2) Ulcer of right foot due to type 2 diabetes mellitus Status: Acute Category: Medical Code(s): E11.621 - Type 2 diabetes mellitus with foot ulcer; L97.519 - Non-pressure chronic ulcer of other part of right foot with unspecified severity (3) Foot osteomyelitis, right Status: Acute Category: Medical Code(s): M86.9 - Osteomyelitis, unspecified (4) Diabetic neuropathy, type II diabetes mellitus Status: Acute Category: Medical Code(s): E11.40 - Type 2 diabetes mellitus with diabetic neuropathy, unspecified (5) PAD (peripheral artery disease) Status: Acute Category: Medical Code(s): I73.9 - Peripheral vascular disease, unspecified (6) Cellulitis of right foot Status: Acute Category: Medical Code(s): L03.115 - Cellulitis of right lower limb (7) Tobacco abuse Status: Chronic Category: Medical Code(s): Z72.0 - Tobacco use (8) Ulcer of left ankle Status: Acute Category: Medical Code(s): L97.329 - Non-pressure chronic ulcer of left ankle with unspecified severity - Assessment and plan all Dx Assessment and Plan for all problems:: Patient doing well. Ortho to follow. Will discuss further care with Dr. Espinoza. <Chris Espinoza - Last Filed: 05/18/21 09:05> Internal Medicine - PN: Subj *Date: 05/18/21 *Time: 09:05 Exam Vital signs and Labs for Last 24 Hours: Temp Pulse Resp BP Pulse Ox 98.0 F 60 18 123/72 95 05/18/21 08:28 05/18/21 08:28 05/18/21 08:28 05/18/21 08:28 05/18/21 08:28 Laboratory Results - last 24 hr 05/17/21 11:21: POC Glucose 228 H 05/17/21 18:17: POC Glucose 248 H 05/17/21 21:36: POC Gl
[2021-05-18 08:18] LABS: MANUAL DIFFERENTIAL MANUAL DIFFERENTIAL (MANUAL DIFF)
[2021-05-18 08:22] LABS: Basophils % 0.2 % (0.1-2.0); Eosinophils % 0.3 % (0.1-12.0); Hematocrit 32.3 % (42.0-52.0); Hemoglobin 10.1 g/dL (14.1-18.0); Lymphocytes # 1.6 K/mm3 (0.7-4.5); Lymphocytes % 15.5 % (10-50); Mean Corpuscular HGB Conc 31.2 g/dL (31.8-35.4); Mean Corpuscular Hemoglobin 27.5 pg (27.0-31.2); Mean Corpuscular Volume 88.1 fl (80-94); Mean Platelet Volume 9.3 fl (7.4-10.4); Monocytes # 0.4 K/mm3 (0.1-1.0); Monocytes % 4.2 % (1.7-9.3); Neutrophils % 79.9 % (37.0-80.0); Platelet Count 275 K/mm3 (142-424); Red Blood Count 3.66 M/mm3 (4.60-6.20); Red Cell Distribution Width 13.6 % (11.5-17.5)
[2021-05-18 08:24] LABS: Chloride 106 mmol/L (98-107); Sodium 133 mmol/L (136-145)
[2021-05-18 08:25] LABS: Potassium 5.1 mmoL/L (3.5-5.1)
[2021-05-18 08:27] LABS: Blood Urea Nitrogen 19 mg/dl (9-20); Creatinine Clearance Estimated 143 mL/min (50-200); Estimated Glomerular Filt Rate 87 ml/min (>60); GFR (African American) 106 ML/MIN (>60)
[2021-05-18 08:28] VITALS: BP 123/72; PULSE 60; RESP 18; TEMP 36.7; O2SAT 95
[2021-05-18 08:28] LABS: Anion Gap 10.1 mEq/L (5-15); Calcium 8.2 mg/dl (8.4-10.2); Carbon Dioxide 22 mmol/L (22.0-30.0); Glucose 259 mg/dl (74-100)
--- NOTE | 2021-05-18 08:39 | HMH.ORTHPN ---
Subjective Date: 05/18/21 <SnowdenLaureen guillen 05/18/21 08:40> Time: 08:20 <Laureen Snowden 05/18/21 08:40> Principal diagnosis: s/p right BKA <SnowdenLaureen guillen 05/18/21 08:40> Interval history: Patient is a 56-year-old male who underwent an uneventful right BKA yesterday 05/17/2021. Today he is postop day #1. This morning the patient is lying comfortably in bed. He reports that he is having little pain in his residual limb, and that it is well controlled with pain medication. He reports that he has been eating and drinking well and denies nausea or vomiting. He has not yet been up to ambulate with the assistance of physical therapy. His past medical history is significant for hypertension, hyperlipidemia, peripheral artery disease, congestive heart failure, COPD, diabetes, MRSA, and osteomyelitis. He is a smoker. He denies chest pain, shortness of breath, fevers, chills, rigors, distal tingling/numbness, or any other symptoms or concerns at this time. <Laureen Snowden 05/18/21 08:45> PN: Obj Ex Vital signs: Temp Pulse Resp BP Pulse Ox 98.5 F 86 18 107/66 L 95 05/18/21 12:00 05/18/21 12:00 05/18/21 12:00 05/18/21 12:00 05/18/21 12:00 <Jourdan Phillip - 05/18/21 21:17> Temp Pulse Resp BP Pulse Ox 98.0 F 60 18 123/72 95 05/18/21 08:28 05/18/21 08:28 05/18/21 08:28 05/18/21 08:28 05/18/21 08:28 <Laureen Snowden 05/18/21 08:40> - Constitutional no acute distress, cooperative <Laureen Snowden 05/18/21 08:45> - Routine HEENT Exam Head: Present: normocephalic, atraumatic <Laureen Snowden 05/18/21 08:45> Eye: Present: EOMI, PERRL <Laureen Snowden 05/18/21 08:45> ENT: Present: mucous membranes moist <Laureen Snowden 05/18/21 08:45> - Routine Neck Exam Present: supple, full ROM, trachea midline. Absent: JVD, lymphadenopathy <Laureen Snowden 05/18/21 08:45> - Routine Respiratory Exam Absent: accessory muscle use, respiratory distress <Laureen Snowden 05/18/21 08:45> Comments: Symmetric chest movement, able to speak in complete sentences <SnowdenLaureen 05/18/21 08:45> - Routine Cardiovascular Exam Present: RRR. Absent: JVD <Laureen Snowden 05/18/21 08:45> Comments: Normal peripheral pulses <SnowdenLaureen 05/18/21 08:45> - Routine Abdominal Exam Present: soft. Absent: tenderness <Laureen Snowden 05/18/21 08:45> - Routine Extremities Exam Comments: Upon examination of the right residual limb: The dressings are clean, dry, and intact. No evidence of drainage or bleeding noted. There is a sugar tong splint in place. The surgical drain is in place and there is approximately 5 cc of drainage in the bulb. <SnowdenLaureen 05/18/21 08:45> - Routine Skin Exam Present: intact, warm, normal turgor. Absent: erythema <SnowdenLaureen 05/18/21 08:45> - Routine Neurological Exam Present: alert, oriented X3, moving all extremities, normal tone, normal speech. Absent: sensory deficit, motor deficit, altered mental status <IsiLaureen 05/18/21 08:45> - Routine Psychiatric Exam Present: normal affect, cooperative <SnowdenLaureen 05/18/21 08:45> Progress Note: A&P (1) Gas gangrene Status: Acute (2) Ulcer of right foot due to type 2 diabetes mellitus Status: Acute (3) Foot osteomyelitis, right Status: Acute (4) Diabetic neuropathy, type II diabetes mellitus Status: Acute (5) PAD (peripheral artery disease) Status: Acute (6) Cellulitis of right foot Status: Acute (7) Tobacco abuse Status: Chronic (8) Ulcer of left ankle Status: Acute <Jourdan Phillip - 05/18/21 21:17> (1) Gas gangrene Status: Acute (2) Ulcer of right foot due to type 2 diabetes mellitus Status: Acute (3) Foot osteomyelitis, right Status: Acute (4) Diabetic neuropathy, type II diabetes mellitus Status: Acute (5) PAD (peripheral artery disease) Status: Acute (6) Cellu
--- NOTE | 2021-05-18 08:42 | PC.NURSE ---
This RN encouraged pt to bath and get cleaned up some and he said he doubted he would, and repeated I said I doubt it. Pt denies pain at this time. Dsg changed to L ankle area and applied bactroban per may to open area. VSS. Pt afebrile and now on RA. CB in reach.
--- NOTE | 2021-05-18 10:20 | DIET.NUTRFU ---
RD reviewed pt after surgery. Added Glucerna to lunch/dinner trays for extra calories and protein to promote healing. Pt may be non-compliant with diabetic/cardiac diet based on food family brought in post-surgery.
[2021-05-18 10:31] LABS: Hypochromasia 1+; Lymphocytes % 20 % (10-50); Monocytes % 7 % (2-9); Neutrophils % 73 % (42-76); Platelet Estimate Normal; Total Cells Counted 100
--- NOTE | 2021-05-18 11:31 | HMH.PTEV ---
Physical Therapy Evaluation Rehab PT IP Evaluation Start: 05/17/21 18:14 Freq: ONCE Status: Active Protocol: Document 05/18/21 11:27 PHORNE (Rec: 05/18/21 11:31 PHORNE [id number]) Subjective/History History History 56 yowm adm to [facility] with R foot gangrene, now S/P R BKA. He reports he lives alone, has no steps to enter the home and is generally independent with all mobility prior to adm. Subjective Subjective Currently no c/o pain. Rehab PT IP Eval Objective Appearance Patient Behavior Appropriate Patient Orientation Person,Place,Time Difficulty following instructions none Speech Pattern Clear Ambulation Patient Able to Ambulate Yes Ambulation Observation IP General Gait Pattern Observation Decrease Weight Bear (R) Ambulation Distance (feet) 4 Ambulation Assistive Device Rolling Walker Ambulation Ability Minimal x 1 (25% assist) Balance Ability to Arise Able, uses arms to help Sitting Balance Steady, safe Dynamic Sitting Balance Ability Good Dynamic Standing Balance Ability Poor Transfers Bed Transfer Ability Supervision/Stand by Chair Transfer Ability Minimal x 1 (25% assist) Sit to Stand Bed Transfer Ability Minimal x 1 (25% assist) Sit to Stand Chair Transfer Ability Minimal x 1 (25% assist) Rehab PT IP prob,goals,plan Problems Date of Evaluation: 05/18/21 PT IP Problems Bed Mobility,Transfers,Gait Rehab Potential Rehab Potential Good Equipment Needs Assistive Devices Rolling / Wheeled Walker Plan PT Intervention Plan Bed Mobility,Transfers,Gait, Balance,Self care,Therapeutic Exercise PT Plan Frequency BID Duration LOS Discharge Goals Bed Transfer Ability Supervision/Stand by Sit to Stand Chair Transfer Ability Contact Guard/Hand Hold Ambulation Assistive Device Rolling Walker Ambulation Distance (feet) 5 Discharge Plan PT Discharge Plan Pt is most appropriate for rehab placement once medically stable, but could return home if he has assistance and can transfer to/from chair independently. G -code Required No Eval Complexity Eval Charge Codes 94538 - Moderate Complexity PHYSICIAN CERTIFICATION: I certify the specified therapy services for Aryan Alcantar are required, authorized, and review
--- NOTE | 2021-05-18 11:45 | SW/DCPLANNER ---
Addendum entered by Tika Lemus 05/19/21 09:09: Karlie with [facility] has stated that services will begin over the weekend for this patient. [facility] has delivered all DME to patients room. Addendum entered by Tika Lemus 05/18/21 14:31: Patient information/order for home health services has been faxed to [facility] packer/ [facility]. Addendum entered by Tika [place] 05/18/21 14:02: Gabrielle packer/ [facility] has stated that DME will be delivered to patients room today. Original Note: I spoke with patient today regarding discharge plans. Patient is adamant to return home at time of discharge. I did explain discharge options: placement (refused), home with home health (agreeable) and return for outpatient PT (denied due to transportation). I did explain to patient that I may not be able to find an agency in network with his insurance:patient understands and would like to proceed with this options. Patient also stated that he would need a wheel chair and a bedside commode at home. I will fax an order to [facility] for the DME. Patient stated that he prefer the DME be delivered today due to patient stating he is leaving this hospital today. I will attempt to set up home health once medically stable for discharge. Discharge date is unknown at this time. Patient stated that he would have transportation home once discharged.
[2021-05-18 11:50] LABS: POC Glucose,Bedside 351 (70-110)
[2021-05-18 12:00] VITALS: BP 107/66; PULSE 86; RESP 18; TEMP 36.9; O2SAT 95
--- NOTE | 2021-05-18 12:29 | PC.NURSE ---
Anaya Villela stated that pt will need a W/C rather than a cane or walker due to gait/ mobility issues. Patient will also need a bedside commode due to distance to restroom in the home.
[2021-05-18 17:03] LABS: POC Glucose,Bedside 282 (70-110)
--- NOTE | 2021-05-18 19:07 | PC.NURSE ---
This RN did call and speak with Dr. Espinoza's nurse and made her aware that pt did have positive bone and tissue samples for CRE. CRE swab also positive.
[2021-05-18 20:00] VITALS: BP 103/50; PULSE 81; RESP 20; TEMP 36.9; O2SAT 93
[2021-05-18 20:47] LABS: POC Glucose,Bedside 327 (70-110)
--- NOTE | 2021-05-18 22:46 | PC.NURSE ---
Patient refused Sliding scale insulin with FSBS of 327. Patient was educated on importance of glucose control, and states he is not taking anything other than what he usually takes.
[2021-05-19 05:00] VITALS: BMI 33.6
--- NOTE | 2021-05-19 06:19 | PC.NURSE ---
Patient alert and oriented with no c/o of pain this shift. Patient has refused 0600 inulin and was educated on importance of controlling his DM. MARTINE drain emptied this shift with 25ml output. Will continue to monitor.
--- NOTE | 2021-05-19 08:12 | HMH.ACPN2 ---
<Giulia Geronimo - Last Filed: 05/19/21 08:12> Internal Medicine - PN: Subj *Date: 05/19/21 *Time: 08:12 Interval history: Patient states he is feeling about the same today. He has minimal pain and states he was able to sleep all night. He ate a good breakfast. Exam Vital signs and Labs for Last 24 Hours: Temp Pulse Resp BP Pulse Ox 98.5 F 81 20 103/50 L 93 L 05/18/21 20:00 05/18/21 20:00 05/18/21 20:00 05/18/21 20:00 05/18/21 20:00 Laboratory Results - last 24 hr 05/18/21 08:12: WBC 10.0, RBC 3.66 L, Hgb 10.1 L, Hct 32.3 L, MCV 88.1, MCH 27.5, MCHC 31.2 L, RDW 13.6, Plt Count 275, MPV 9.3, Neut % (Auto) 79.9, Lymph % (Auto) 15.5, [place] % (Auto) 4.2, Eos % (Auto) 0.3, Baso % (Auto) 0.2, Neut # (Auto) 8.0 H, Lymph # (Auto) 1.6, [place] # (Auto) 0.4, Eos # (Auto) 0.0, Baso # (Auto) 0.0, Total Counted 100, Neutrophils % (Manual) 73, Lymphocytes % (Manual) 20, Monocytes % (Manual) 7, Platelet Estimate Normal, Hypochromasia 1+ 05/18/21 08:12: Sodium 133 L, Potassium 5.1, Chloride 106, Carbon Dioxide 22, Anion Gap 10.1, BUN 19, Creatinine 0.90, Estimated Creat Clear 143, Estimated GFR 87, Est GFR ( Amer) 106 D, Glucose 259 H, Calcium 8.2 L 05/18/21 11:29: POC Glucose 351 H* 05/18/21 16:42: POC Glucose 282 H 05/18/21 20:34: POC Glucose 327 H* I & O for Last 24 hours: Intake & Output 05/16/21 05/17/21 05/18/21 05/19/21 11:59 11:59 11:59 11:59 Intake Total 0 / 0 1300 / 1300 900 / 900 Output Total 0 / 0 800 / 800 1210 / 1210 1195 / 1195 Balance 0 / 0 500 / 500 -310 / -310 -1195 / -1195 Weight 246 lb 14.684 oz 249 lb 11.2 oz 243 lb 6.4 oz 248 lb 9.6 oz Microbiology Reports for the Last 24 Hours: Microbiology 05/17/21 16:46 Leg,Right - Wound Gram Stain - Final 05/17/21 16:46 Leg,Right - Wound Wound Culture - Preliminary 05/15/21 12:10 Blood Blood Culture - Preliminary 05/15/21 12:10 Blood Blood Culture - Preliminary 05/16/21 03:05 Anus CRE Surveillance Culture - Final 05/15/21 16:30 Foot,Right - Right Gram Stain - Final 05/15/21 16:30 Foot,Right - Right Surgical Biopsy Culture - Preliminary Providencia rettgeri Gram Positive Cocci 05/15/21 16:40 Bone - Right Bone Culture - Preliminary Providencia rettgeri Gram Positive Cocci 05/15/21 16:40 Bone - Right Bone Culture - Preliminary Providencia rettgeri - Constitutional no acute distress - *Routine Respiratory Exam Present: CTA bilaterally - *Routine Cardiovascular Exam Present: RRR - *Routine Abdominal Exam Present: soft, normoactive bowel sounds. Absent: tenderness - *Routine Extremities Exam Absent: cyanosis, clubbing, edema Comments: Right BKA with dressing in place - *Routine Skin Exam Present: warm. Absent: rash - *Routine Neurological Exam Present: alert, oriented X3 Assessment and Plan (1) Gas gangrene Status: Acute Category: Medical Code(s): A48.0 - Gas gangrene (2) Ulcer of right foot due to type 2 diabetes mellitus Status: Acute Category: Medical Code(s): E11.621 - Type 2 diabetes mellitus with foot ulcer; L97.519 - Non-pressure chronic ulcer of other part of right foot with unspecified severity (3) Foot osteomyelitis, right Status: Acute Category: Medical Code(s): M86.9 - Osteomyelitis, unspecified (4) Diabetic neuropathy, type II diabetes mellitus Status: Acute Category: Medical Code(s): E11.40 - Type 2 diabetes mellitus with diabetic neuropathy, unspecified (5) PAD (peripheral artery disease) Status: Acute Category: Medical Code(s): I73.9 - Peripheral vascular disease, unspecified (6) Cellulitis of right foot Status: Acute Category: Medical Code(s): L03.115 - Cellulitis of right lower limb (7) Tobacco abuse Status: Chronic Category: Medical Code(s): Z72.0 - Tobacco use (8) Ulcer of left
--- NOTE | 2021-05-19 08:39 | HMH.ACPN2 ---
Internal Medicine - PN: Subj *Date: 05/19/21 *Time: 08:39 Exam Vital signs and Labs for Last 24 Hours: Temp Pulse Resp BP Pulse Ox 98.5 F 81 20 103/50 L 93 L 05/18/21 20:00 05/18/21 20:00 05/18/21 20:00 05/18/21 20:00 05/18/21 20:00 Laboratory Results - last 24 hr 05/18/21 08:12: WBC 10.0, RBC 3.66 L, Hgb 10.1 L, Hct 32.3 L, MCV 88.1, MCH 27.5, MCHC 31.2 L, RDW 13.6, Plt Count 275, MPV 9.3, Neut % (Auto) 79.9, Lymph % (Auto) 15.5, [place] % (Auto) 4.2, Eos % (Auto) 0.3, Baso % (Auto) 0.2, Neut # (Auto) 8.0 H, Lymph # (Auto) 1.6, [place] # (Auto) 0.4, Eos # (Auto) 0.0, Baso # (Auto) 0.0, Total Counted 100, Neutrophils % (Manual) 73, Lymphocytes % (Manual) 20, Monocytes % (Manual) 7, Platelet Estimate Normal, Hypochromasia 1+ 05/18/21 08:12: Sodium 133 L, Potassium 5.1, Chloride 106, Carbon Dioxide 22, Anion Gap 10.1, BUN 19, Creatinine 0.90, Estimated Creat Clear 143, Estimated GFR 87, Est GFR ( Amer) 106 D, Glucose 259 H, Calcium 8.2 L 05/18/21 11:29: POC Glucose 351 H* 05/18/21 16:42: POC Glucose 282 H 05/18/21 20:34: POC Glucose 327 H* I & O for Last 24 hours: Intake & Output 05/16/21 05/17/21 05/18/21 05/19/21 23:59 23:59 23:59 23:59 Intake Total 1300 / 1300 900 / 900 240 / 240 Output Total 800 / 800 700 / 700 980 / 1005 1075 / 1075 Balance 500 / 500 200 / 200 -980 / -1005 -835 / -835 Weight 112 kg 113.262 kg 110.404 kg 112.763 kg Microbiology Reports for the Last 24 Hours: Microbiology 05/17/21 16:46 Leg,Right - Wound Gram Stain - Final 05/17/21 16:46 Leg,Right - Wound Wound Culture - Preliminary 05/15/21 12:10 Blood Blood Culture - Preliminary 05/15/21 12:10 Blood Blood Culture - Preliminary 05/16/21 03:05 Anus CRE Surveillance Culture - Final 05/15/21 16:30 Foot,Right - Right Gram Stain - Final 05/15/21 16:30 Foot,Right - Right Surgical Biopsy Culture - Preliminary Providencia rettgeri Gram Positive Cocci 05/15/21 16:40 Bone - Right Bone Culture - Preliminary Providencia rettgeri Gram Positive Cocci 05/15/21 16:40 Bone - Right Bone Culture - Preliminary Providencia rettgeri Assessment and Plan (1) Gas gangrene Status: Acute Category: Medical Code(s): A48.0 - Gas gangrene (2) Ulcer of right foot due to type 2 diabetes mellitus Status: Acute Category: Medical Code(s): E11.621 - Type 2 diabetes mellitus with foot ulcer; L97.519 - Non-pressure chronic ulcer of other part of right foot with unspecified severity (3) Foot osteomyelitis, right Status: Acute Category: Medical Code(s): M86.9 - Osteomyelitis, unspecified (4) Diabetic neuropathy, type II diabetes mellitus Status: Acute Category: Medical Code(s): E11.40 - Type 2 diabetes mellitus with diabetic neuropathy, unspecified (5) PAD (peripheral artery disease) Status: Acute Category: Medical Code(s): I73.9 - Peripheral vascular disease, unspecified (6) Cellulitis of right foot Status: Acute Category: Medical Code(s): L03.115 - Cellulitis of right lower limb (7) Tobacco abuse Status: Chronic Category: Medical Code(s): Z72.0 - Tobacco use (8) Ulcer of left ankle Status: Acute Category: Medical Code(s): L97.329 - Non-pressure chronic ulcer of left ankle with unspecified severity The patient's infection will respond to the chosen ABx?: Yes (PROVIDENCIA RETTGERI, CEFEPIME SUSCEPTIBLE) Is the patient receiving the right drug, dose, and route?: Yes Could a more targeted ABx be ordered?: No
--- NOTE | 2021-05-19 10:24 | HMH.PHAINT ---
Discharge counseling complete. Informed patient of new meds, how to take, purpose, and potential side effects. Pt understood and had no questions or concerns
--- NOTE | 2021-05-19 12:56 | PC.NURSE ---
Pt states ride will be here between [id number].
--- NOTE | 2021-05-19 14:32 | PC.NURSE ---
spoke with dr orr at this time. informed care management of need for care tenders/home health to be aware they need to removed the drain this weekend when they round on the patient. care managment stated they would let them know
[2021-05-19 16:06] LABS: POC Glucose,Bedside 302 (70-110)
--- NOTE | 2021-05-20 21:34 | HMH.DCSUM ---
General - General Admission date:: 05/15/21 Discharge date: 05/19/21 HPI HPI: Mr. Alcantar is a 56-year-old male with a PCP in [facility]. He has a history of diabetes mellitus. He does not check his blood sugars. He states that he went to the office of Dr. Huertas because of right foot pain. This a.m. he is a poor historian but feels that he has had the pain for several weeks. He denies having noted a wound or any drainage from the foot. With evaluation in the office of Dr. Huertas he was sent to the emergency room for probable admission after surgery. Emergency room documentation as follows: HPI narrative: Mr. Alcantar is a 56 yo male w/ PMH for uncontrolled DM and chronic foot ulcers s/p partial amputation of (R) foot who presents directly from Dr. Izquierdo's office due to concern for progression of infection of R foot and possible necrotizing gas gangrenous species. Patient reports worsening pain and odor from his (R) foot over the last week. He denies any purulent drainainge. No systemic signs of infection. He denies N/V, fevers, chills, abdominal pain, chest pain or other concerns at this time. Documentation per Dr. Huertas as follows: -*History of present illness: Patient is a 56-year-old diabetic male who presented to the podiatry office outpatient this morning for right foot pain and a wound x1 month duration. Wound was noted to be malodorous and necrotic. I discussed possible admission with Dr. Espinoza. Patient was sent to the ER for further work-up including labs which showed white count of 13.2 and CRP of 165.6. CT imaging showed gas gangrene with possible osteomyelitis to the calcaneus. Patient will be admitted per Dr. Espinoza. Podiatry consulted. Discussed with Dr. Espinoza, ER and patient this foot may not be salvageable. We will plan for surgical I&D today with possible/likely orthopedic consult tomorrow. After being evaluated in the emergency room patient was taken to the OR. See specifics as follows: Date of procedure: 05/15/21 Pre-op Diagnosis:: 1. Right foot gas gangrene 2. Cellulitis of right foot 3. Osteomyelitis of right foot 4. DM with neuropathy, ulcer right heel and 5th metatarsal 5. Tobacco abuse 6. Hx of MRSA 7. Morbid Obesity 8. Hx of non-compliance Post-op Diagnosis:: Same Procedure performed:: 1. Right foot incision and drainage 2. Right foot wound debridement x2 3. Right foot bone biopsy Surgeon:: Alyson Huertas DPM This a.m. patient is awakened for assessment. He states he slept well. He states he has no pain in his foot. He denies chest pain and shortness of breath. He does want to eat breakfast. During this visit Dr. Huertas did a dressing change. Following is her note: Assessment and Plan for All Diagnoses:: Surgery 05/15/21: s/p 1. Right foot incision and drainage, 2. Right foot wound debridement x2, 3. Right foot bone biopsy POD #1 *consult orthopedics for R BKA evaluation -Dsg changed this am. Still some malodor noted. Exposed right 5th met base, calcaneus, talus/ankle. Tracking up the achilles tendon. Tissue is dusky and necrotic. -Betadine soaked gauze, DSD applied. -Maintain dressing clean dry and intact to right foot, reinforce as necessary. -NWB with walker. -IV Antibiotics: Clindamycin, Cefepime (hx of MRSA/osteomyelitis, susceptible to Clinda) -Plan for Ortho consult-Dr Phillip for R BKA evaluation. Dr. Huertas explained to him the extent of the infection and the need for amputation. She informed the patient that she had consulted with Dr. Phillip for this. Patient seemed to understand the plan and then asked about a prosthesis. Hospital Course Hospital Course: The patient's white blood cell count improved as did his renal function. He was continued on fluids. Dr. Huertas discussed the seriousness of his foot wound and presented a plan of care to consult with Dr. Phillip for further amputation. He was continued on antibiotics and was seen by Dr. Phillip who wanted to
== END 2021-05-19 13:07 | disposition home health service (06) | DRG 616 ==
LOC: ER 15:27 → SDC 16:47 → 2ND 16:50
PROVIDERS: Orthopaedic Surgery; Podiatrist; Admitting Provider Family Medicine; Emergency Provider Student in an Organized Health Care Education/Training Program; PCP Family Medicine; Visit Provider Family Medicine
PROC: 0QBP0ZZ Excision of Left Metatarsal, Open Approach (ICD-10-PCS; CPT 27880; principal; 2021-05-17 14:00)
DX: E11.69 Type 2 diabetes mellitus with other specified complication (principal); A48.0 Gas gangrene; M86.9 Osteomyelitis, unspecified; E11.52 Type 2 diabetes mellitus with diabetic peripheral angiopathy with gangrene; L03.115 Cellulitis of right lower limb; Z91.19 Patient's noncompliance with other medical treatment and regimen; E11.40 Type 2 diabetes mellitus with diabetic neuropathy, unspecified; F17.210 Nicotine dependence, cigarettes, uncomplicated; E78.5 Hyperlipidemia, unspecified; I10 Essential (primary) hypertension; E66.01 Morbid (severe) obesity due to excess calories; Z68.33 Body mass index [BMI] 33.0-33.9, adult; Z79.4 Long term (current) use of insulin
CPT/HCPCS: 11044 ×2; 11047 ×8; 27880; 36415; 73590; 73610; 73702; 80048; 80053; 82962; 83605; 85007; 85014; 85018; 85025; 85048; 85049; 85651; 86140; 87040; 87070; 87075; 87077; 87081; 87186; 87205; 88304; 88305; 88307; 88311; 93923; 96365; 97110; 97162; 99284; A4649; C9803; J0878; J2405; J2704; Q9967; U0003; U0005

== ENCOUNTER → 2021-05-15 16:00 | Outpatient (CLI) | payer MEDICARE, MEDICAID, SELFPAY | PROVIDERS: Visit Provider Podiatrist | DX: L97.511 Non-pressure chronic ulcer of other part of right foot limited to breakdown of skin (principal) | CPT/HCPCS: 87070; 87077; 87186; 87205; J2704 ==

== ENCOUNTER → 2021-05-23 12:45 | Outpatient (CLI) | payer MEDICARE, MEDICAID, SELFPAY ==
[2021-05-23 13:05] LABS: Basophils # 0.1 K/mm3 (0-0.2); Basophils % 0.9 % (0.1-2.0); Eosinophils # 0.3 K/mm3 (0.0-0.4); Eosinophils % 2.7 % (0.1-12.0); Hematocrit 39.1 % (42.0-52.0); Hemoglobin 12.4 g/dL (14.1-18.0); Lymphocytes # 2.8 K/mm3 (0.7-4.5); Lymphocytes % 27.6 % (10-50); Mean Corpuscular HGB Conc 31.7 g/dL (31.8-35.4); Mean Corpuscular Hemoglobin 28.2 pg (27.0-31.2); Mean Platelet Volume 10.2 fl (7.4-10.4); Monocytes # 0.4 K/mm3 (0.1-1.0); Neutrophils # 6.5 K/mm3 (1.8-7.8); Neutrophils % 64.9 % (37.0-80.0); Platelet Count 296 K/mm3 (142-424); Red Cell Distribution Width 14.8 % (11.5-17.5)
[2021-05-23 13:16] LABS: C-Reactive Protein 21.7 mg/L (0-4)
[2021-05-23 13:56] LABS: Erythrocyte Sedimentation Rate 74 mm/hr (0-20)
== END ==
PROVIDERS: Visit Provider Orthopaedic Surgery
DX: Z09 Encounter for follow-up examination after completed treatment for conditions other than malignant neoplasm (principal); M25.511 Pain in right shoulder; M25.512 Pain in left shoulder
CPT/HCPCS: 36415; 85025; 85651; 86140

== ENCOUNTER → 2021-06-13 13:41 | Outpatient (CLI) | payer MEDICARE, MEDICAID, SELFPAY ==
[2021-06-13 14:10] LABS: Basophils # 0.1 K/mm3 (0-0.2); Basophils % 0.8 % (0.1-2.0); Eosinophils # 0.1 K/mm3 (0.0-0.4); Eosinophils % 2.3 % (0.1-12.0); Hematocrit 41.1 % (42.0-52.0); Hemoglobin 12.6 g/dL (14.1-18.0); Lymphocytes # 1.9 K/mm3 (0.7-4.5); Lymphocytes % 32.2 % (10-50); Mean Corpuscular HGB Conc 30.8 g/dL (31.8-35.4); Mean Corpuscular Hemoglobin 28.3 pg (27.0-31.2); Mean Corpuscular Volume 91.9 fl (80-94); Mean Platelet Volume 10.6 fl (7.4-10.4); Monocytes # 0.3 K/mm3 (0.1-1.0); Monocytes % 4.7 % (1.7-9.3); Neutrophils # 3.6 K/mm3 (1.8-7.8); Neutrophils % 60.1 % (37.0-80.0); Platelet Count 133 K/mm3 (142-424); Red Blood Count 4.47 M/mm3 (4.60-6.20); Red Cell Distribution Width 17.4 % (11.5-17.5); White Blood Count 5.9 K/mm3 (4.8-10.8)
[2021-06-13 14:21] LABS: C-Reactive Protein 1.7 mg/L (0-4)
[2021-06-13 14:55] LABS: Erythrocyte Sedimentation Rate 37 mm/hr (0-20)
== END ==
PROVIDERS: Visit Provider Orthopaedic Surgery
DX: Z09 Encounter for follow-up examination after completed treatment for conditions other than malignant neoplasm (principal); M25.511 Pain in right shoulder; M25.512 Pain in left shoulder
CPT/HCPCS: 36415; 85025; 85651; 86140

== ENCOUNTER 2021-07-05 14:09 | Emergency (ER) | payer MEDICARE, MEDICAID, SELFPAY ==
[2021-07-05 14:10] VITALS: BP 158/97; PULSE 87; RESP 18; TEMP 36.8; O2SAT 98; BMI 52.2
--- NOTE | 2021-07-05 14:46 | HMH.EDEYEP ---
ED Disposition Clinical Impression: Visual changes Disposition: Home, Self-Care Condition on Discharge: Good Instructions: DI for Visual Field Disturbances Additional Instructions: Please go straight to the [facility] at [address] [id number]. You have also been prescribed erythromycin ointment please use as prescribed. Prescriptions: Erythromycin Base [Erythromycin 1gm opth ointment] 1 gm OP TID #1 gm Transmission Status: Received by [facility] [employer] #[id number] Referrals: Sadie Stapleton [Primary Care Provider] - - Critical Care Critical Care Time: No Attestation: On 07/05/21, the high probability of a clinically significant, sudden or life threatening deterioration of the following system(s) required my full and direct attention, intervention and personal management. The time I documented below is in addition to time spent performing reported procedures but includes the following listed in this critical care notation. Medical Decision Making - Medical Records Medical records reviewed: Yes: I reviewed the patient's medical records. - Jaden Inquiry Pt receiving controlled substance: No Vital Signs: 07/05/21 14:10 07/05/21 14:54 Temperature 98.2 F 98.2 F Temperature Source Oral Oral Pulse Rate 87 Pulse Rate [Right Radial] 87 Respiratory Rate 18 18 Blood Pressure 158/97 H Blood Pressure [Right Arm] 158/97 H Blood Pressure Mean [Right Arm] 117 02 Sat by Pulse Oximetry 98 Oxygen Delivery Method Room Air Room Air - Lab Data Lab results reviewed: Yes: I reviewed the patient's lab results. Orders (Tests/Meds): ED MEDICATIONS Discontinued Medications Generic Name Dose Route Start Last Admin Trade Name Freq PRN Reason Stop Dose Admin Erythromycin 0.5 gm 07/05/21 14:30 Erythromycin Base 1 Gm Oint...G. OP 07/05/21 14:31 ONCE ONE Fluorescein Sodium 1 mg 07/05/21 14:30 Fluorescein Sodium 1mg Strip OP 07/05/21 14:31 ONCE ONE Tetracaine HCl 1 ml 07/05/21 14:30 Tetracaine 0.5% Opth Mony 15ml OP 07/05/21 14:31 ONCE ONE Medical Decision Narrative: Mr. Alcantar is a 56 yo male presenting w/ eyrthema of the (R) eye and blurry vision. Patient is afebrile and hemodynamically stable on arrival. Patient has no fevers, chills, headache or other infectious like symptoms. Physical exam remarkable for eyrthematous (R) eye, full EOM, mild pain noted. Visual aquity poor, can only make out shapes, sensitive to light. Denies any trauma to the eye. Bedside US shows no evidence of retinal detachement. Optic nerve normal. tonopen pressures unable to be obtained due to no suitable pen present at [facility]. [facility] consulted for further management given concern for iritis, uveitis, conjunctivitis and or other ocular pathology. Patient will have pressures checked upon arrival to eye doctor. Patient discharged in stable condition. Patient also provided script for erythromycin gtt ointment. Of note: no concern for endopthalamitis given exam. Eye Problem HPI - General Chief complaint: Eye Problems Stated complaint: right eye redness Time Seen by Provider: 07/05/21 14:10 Mode of Arrival: Ambulatory Source of Information: Patient Limitations: No Limitations - History of Present Illness HPI Narrative: Mr. Alcantar is a 56 yo male w/ PMH for BKA May 2021 and cataracts, who presents to the ED for 2 weeks of (R) eye redness and pain. Patient reports erythema of the right eye which has progressively worsened. He also reports blurry vision in (R) eye reporting that he can only make out shapes but is having difficulty seeing lights as well. He also reports pain w/ EOM worse in vertical direction. Patient denies any trauma ot the eye. No recent illness. No fevers, chills, headache, N/V or other infectious symptoms. MD chief complaint: eye pain, eye redness Onset (ago): week(s) Onset description: gradual Duration: constant Location: right eye Eye Symptoms: redness,
[2021-07-05 14:54] VITALS: BP 158/97; PULSE 87; RESP 18; TEMP 36.8; O2SAT 98
== END 2021-07-05 14:54 | disposition home or self-care (01) ==
PROVIDERS: Emergency Provider Student in an Organized Health Care Education/Training Program; PCP Family Medicine
DX: H53.8 Other visual disturbances (principal); I11.0 Hypertensive heart disease with heart failure; I50.9 Heart failure, unspecified; E11.9 Type 2 diabetes mellitus without complications; J44.9 Chronic obstructive pulmonary disease, unspecified; Z89.519 Acquired absence of unspecified leg below knee; F17.210 Nicotine dependence, cigarettes, uncomplicated; Z86.14 Personal history of Methicillin resistant Staphylococcus aureus infection; Z87.898 Personal history of other specified conditions; Z79.4 Long term (current) use of insulin; Z79.51 Long term (current) use of inhaled steroids; Z79.84 Long term (current) use of oral hypoglycemic drugs; Z79.899 Other long term (current) drug therapy; Z88.0 Allergy status to penicillin; Z88.1 Allergy status to other antibiotic agents; Z88.3 Allergy status to other anti-infective agents; Z88.6 Allergy status to analgesic agent; Z88.8 Allergy status to other drugs, medicaments and biological substances; Z82.49 Family history of ischemic heart disease and other diseases of the circulatory system; Z82.5 Family history of asthma and other chronic lower respiratory diseases; Z83.438 Family history of other disorder of lipoprotein metabolism and other lipidemia; Z83.49 Family history of other endocrine, nutritional and metabolic diseases; Z83.3 Family history of diabetes mellitus; Z80.9 Family history of malignant neoplasm, unspecified
CPT/HCPCS: 99282

== ENCOUNTER → 2022-11-21 18:23 | Outpatient (CLI) | payer MEDICARE, MEDICAID, SELFPAY ==
--- NOTE | 2022-11-21 18:59 | XR_ITS ---
PROCEDURE INFORMATION: Exam: XR Left Foot Complete; Alignment Exam date and time: 11/21/2022 7:01 PM Age: 57 years old Clinical indication: Pain; Foot; Left; Additional info: Foot pain. Ulcer on bottom of foot TECHNIQUE: Imaging protocol: Radiologic exam of the left foot. Views: 3 or more views. COMPARISON: CR XR FOOT WT BEARING LT 3V 02/03/2021 16:13 FINDINGS: Bones/joints: Questionable demineralization of the distal phalanx of the 4th digit. Mild lateral angulation of the great toe interphalangeal joint. Soft tissues: Mild dorsal soft tissue edema of the foot. IMPRESSION: 1. Questionable demineralization of the distal phalanx of the 4th digit. If this is near the known foot ulcer, osteomyelitis is possible. 2. Mild dorsal soft tissue edema of the foot. Please exclude cellulitis.
[2022-11-21 19:15] LABS: Basophils # 0.1 K/mm3 (0-0.2); Basophils % 0.6 % (0.1-2.0); Eosinophils # 0.1 K/mm3 (0.0-0.4); Eosinophils % 1.6 % (0.1-12.0); Hematocrit 52.9 % (42.0-52.0); Lymphocytes # 2.2 K/mm3 (0.7-4.5); Lymphocytes % 27.6 % (10-50); Mean Corpuscular HGB Conc 32.2 g/dL (31.8-35.4); Mean Corpuscular Hemoglobin 30.2 pg (27.0-31.2); Mean Corpuscular Volume 93.6 fl (80-94); Mean Platelet Volume 10.7 fl (7.4-10.4); Monocytes # 0.5 K/mm3 (0.1-1.0); Monocytes % 5.9 % (1.7-9.3); Neutrophils # 5.2 K/mm3 (1.8-7.8); Neutrophils % 64.3 % (37.0-80.0); Platelet Count 122 K/mm3 (142-424); Red Blood Count 5.65 M/mm3 (4.60-6.20); Red Cell Distribution Width 13.5 % (11.5-17.5); White Blood Count 8.1 K/mm3 (4.8-10.8)
[2022-11-21 19:38] LABS: Alanine Aminotransferase 34 U/L (12-78); Albumin Level 4.4 g/dl (3.5-5.0); Albumin/Globulin Ratio 1.2 (1.1-1.8); Alkaline Phosphatase 100 U/L (38-126); Aspartate Amino Transferase 26 U/L (17-59); Bilirubin,Total 0.8 mg/dl (0.2-1.3); Blood Urea Nitrogen 14 mg/dl (9-20); Calcium 9.3 mg/dl (8.4-10.2); Carbon Dioxide 29 mmol/L (22.0-30.0); Chloride 96 mmol/L (98-107); Estimated Glomerular Filt Rate 62 ml/min (>60); GFR (African American) 76 ML/MIN (>60); Globulin 3.7 g/dL (1.3-3.2); Glucose 249 mg/dl (74-100); Sodium 136 mmol/L (136-145); Total Protein,Serum 8.1 g/dl (6.3-8.2)
[2022-11-21 20:07] LABS: Erythrocyte Sedimentation Rate 6 mm/hr (0-20)
== END ==
PROVIDERS: PCP Family Medicine; Visit Provider Podiatrist
DX: R60.9 Edema, unspecified; M79.672 Pain in left foot; M79.671 Pain in right foot
CPT/HCPCS: 36415; 73630; 80053; 85025; 85651; 86140

== ENCOUNTER 2022-11-21 19:13 | Inpatient (IN) | payer MEDICARE, MEDICAID, SELFPAY ==
[2022-11-21 19:15] VITALS: BP 147/79; PULSE 89; RESP 19; TEMP 36.7; O2SAT 95; BMI 33.9
[2022-11-21 22:00] VITALS: BP 152/91; PULSE 88; O2SAT 98
--- NOTE | 2022-11-21 22:26 | CT_ITS ---
PROCEDURE INFORMATION: Exam: CTA Left Lower Extremity With Contrast Exam date and time: 11/21/2022 11:03 PM Age: 57 years old Clinical indication: Swelling, leg or foot; Additional info: L 4th toe gangrene, redness and swelling foot TECHNIQUE: Imaging protocol: Computed tomographic angiography of the left lower extremity with contrast. 3D rendering (Not supervised by radiologist): MIP and/or 3D reconstructed images were created by the technologist. Radiation optimization: All CT scans at this facility use at least one of these dose optimization techniques: automated exposure control; mA and/or kV adjustment per patient size (includes targeted exams where dose is matched to clinical indication); or iterative reconstruction. Contrast material: ISOVUE; Contrast volume: 120 ml; Contrast route: INTRAVENOUS (IV); REPORTING DATA: Count of CT and Cardiac NM exams in prior 12 months: This patient has received 0 known CTs and 0 known cardiac nuclear medicine studies in the 12 months prior to the current study. COMPARISON: CR XR FOOT WT BEARING LT 3V 21/11/2022 19:01 FINDINGS: Left femoral/popliteal arteries: Severe stenosis of the distal left common femoral artery. Moderate stenosis of the origin of the left superficial femoral artery. Severe stenosis versus near occlusion of the proximal left popliteal artery. Moderate to severe stenosis of the distal popliteal artery. Left infrapopliteal arteries: [id number] stenosis of the proximal left anterior tibial artery. Severe stenosis versus near occlusion of the proximal left posterior tibial artery. Bones/joints: There is no bony destruction or cortical erosions to correlate with osteomyelitis of the 4th digit phalanges. Soft tissues: Dorsal soft tissue swelling of the foot. Other findings: Coronary artery calcifications. IMPRESSION: 1. Multiple flow-limiting stenoses in the major arteries of the left lower extremity as detailed above. 2. There is no bony destruction or cortical erosions to correlate with osteomyelitis of the 4th digit phalanges. The abnormal appearance on radiographs could be artifact.
--- NOTE | 2022-11-21 22:31 | PC.NURSE ---
spoke with Verónica GORE about vanc dosing. suggested dose was 2.25 GM and PHARMD states she will put in the order.
--- NOTE | 2022-11-21 22:31 | HMH.EDGENADL ---
Discharge Plan Disposition Patient Disposition: Admitted Condition: Fair Chief Complaint: Skin/Abscess/Foreign Body Prescriptions Prescriptions: No Action pravastatin 40 mg tablet 40 mg PO DAILY methocarbamol 750 mg tablet 750 mg PO TIDP PRN (Reason: Muscle Pain) albuterol sulfate 90 mcg/actuation HFA aerosol inhaler 2 puffs INHALATION QID PRN (Reason: Shortness Of Breath Or Wheezing) umeclidinium-vilanterol 62.5-25 mcg/actuation blister with device 1 mcg INHALATION DAILY Levemir FlexTouch U100 Insulin 100 unit/mL (3 mL) insulin pen 50 unit SQ HS cholecalciferol (vitamin D3) [Vitamin D3] 50 mcg (2,000 unit) tablet 50 mcg PO DAILY Patient Comments: TAKE 1 TABLET BY MOUTH EVERY DAY gabapentin 800 MG tablet 800 mg PO QID lisinopril 10 MG tablet 10 mg PO DAILY metformin 500 mg tablet extended release 24hr 1,000 mg PO BID erythromycin 1 GM ointment 1 gm OP TID Qty: 1 0RF Referrals Follow up/Referrals: Sadie Stapleton [Primary Care Provider] - See instructions Clinical Impressions Clinical Impression: Gangrene of toe, Diabetic foot infection Instructions Patient Instructions: DI for Skin Abscess Discharge ED Provider: Rodo Geiger General Adult HPI <Rodo Geiger MD - Last Filed: 11/21/22 23:42> General Chief complaint: Skin/Abscess/Foreign Body Stated complaint: LT foot swelling, Time Seen by Provider: 11/21/22 20:46 Mode of Arrival: Wheelchair Source of Information: Patient Limitations: Physical Limitations Description of Symptoms (Recalled from ER Triage Doc. by RN): pt reports that a few days ago he noticed a spot on his foot and that was sore upon closer inspection from a friend there was a spot on his foot near the distal portion of the foot in between his last two toes and the pt states that the ulcer is also on the bottom of the foot. the pt was sent in by pediotry today for labs and xrays and the pt secided that he did not want to wait for results and prefers a doctor look at it tonight to look at it before it gets out of control History of Present Illness HPI narrative: Patient is a 57-year-old male with past medical history of previous right lower extremity amputation mid hall secondary to vascular disease and infection who presents to the emergency department for evaluation of left foot swelling. History is obtained by patient at bedside. Over the last 7 days patient has had progressive discoloration of his left fourth toe which has since sloughed off over the last 24 to 48 hours. He has had progressive erythema and swelling over his left foot which is concerning to him causing him to present here for continued evaluation. Patient has a past medical history of previous necrotizing soft tissue infection, previous infection of the right foot status post amputation, diabetes with associated neuropathy, smoking. He presented to outside clinic lab today where x-rays and blood draws were conducted. X-ray shows questionable demineralization of the left fourth digit. Hematologic labs show no leukocytosis, no critical electrolyte abnormalities or ADRIANO, elevated CRP. Patient denies fevers, other acute complaints at this time. Related Data Home Medications Medication Instructions Recorded Confirmed gabapentin 800 mg tablet 800 mg PO QID neuropathy 03/17/20 08/22/21 lisinopril 10 mg tablet 10 mg PO DAILY blood pressure 03/17/20 08/22/21 albuterol sulfate 90 mcg/actuation 2 puffs inhalation QID PRN 04/27/20 08/22/21 aerosol inhaler Shortness Of Breath Or Wheezing umeclidinium 62.5 mcg-vilanterol 1 mcg inhalation DAILY Asthma 04/27/20 08/22/21 25 mcg/actuation powdr for inhalation pravastatin 40 mg tablet 40 mg PO DAILY Cholesterol 09/22/20 08/22/21 methocarbamol 750 mg tablet 750 mg PO TIDP PRN Muscle Pain 10/20/20 08/22/21 insulin detemir U-100 100 unit/mL 50 unit SQ HS Diabetes 11/14/20 08/22/21 (3 mL) subcutaneous pen (Saida
--- NOTE | 2022-11-21 22:35 | PC.NURSE ---
currently speaking with CHARISSE GORE about suggested antibiotic for wet gangrene of a diabetic ulcer
--- NOTE | 2022-11-21 22:53 | PC.NURSE ---
CHARISSE PHARMD suggested invanz 1GM for treatment
[2022-11-22 00:46] VITALS: BP 147/86; PULSE 88; RESP 18; TEMP 36.7
--- NOTE | 2022-11-22 01:28 | PC.NURSE ---
pt arrived to floor via wheelchair @01:27
--- NOTE | 2022-11-22 01:36 | EXP.HP ---
History of Present Illness *Admission Date: 11/22/22 *Reason for visit:: diabetic foot ulcer *History of present illness: 57 year old male presented to the ED for c/o left foot swelling. 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 Over the last 7 days patient has had progressive discoloration of his left fourth toe which has since sloughed off over the last 24 to 48 hours. He has had progressive erythema and swelling over his left foot. Lab work was obtained prior to ED visit at PCP. Pt presented to ED straight from PCP office. Hematologic labs show no leukocytosis, no critical electrolyte abnormalities. Elevated CRP is noted. Patient denies fevers, other acute complaints at this time. Due to insurance he not been able to have his medications filled or taken. He received a CT of his LLE in the ED which revealed multifocal arterial stenoses with distal three-vessel runoff. No evidence of NSTI, no osteomyelitis. The Xray of his LLE revealed mild dorsal soft tissue edema of the left foot. He received Invanz 1 gm and clindamycin 900 mg after having blood cultures obtained. The ED physician consulted the hospitalist for further medical management. The pt was admitted to the medical floor. He is hemodynamically stable. He uses a wheelchair at home for ambulation. He does state he has a prosthetic for his right ankle but is unable to currently wear it due to swelling. He will have a podiatry consult placed for the morning. [facility] Disclaimer: The information contained in this section may have been updated after the patient was seen, as this information can be updated by other users. Medical History (Updated 11/22/22 @ 15:35 by Eleazar Fleming MD) Asthma Cataract Diabetes mellitus type 1 Glaucoma Surgical History (Updated 11/22/22 @ 02:02 by Ina Sanchez RN) Hx of right BKA Social History (Updated 11/22/22 @ 02:02 by Ian Sanchez RN) Smoking Status: Current every day smoker tobacco type: cigarettes packs per day: 1 second hand exposure: Yes alcohol intake: never substance use type: denies use current occupational status: disabled Travel in the last 8 weeks: None household members: spouse housing: apartment current occupational exposures/hazards: No caffeine: No Review of Systems Review of Systems Review of systems:: pertinent systems reviewed and negative unless documented below *Cardiovascular Cardiovascular: Reports system reviewed and no additional complaints, except as documented *Respiratory Respiratory: Reports system reviewed and no additional complaints, except as documented *Gastrointestinal Gastrointestinal: Reports system reviewed and no additional complaints, except as documented *Genitourinary Genitourinary: Reports system reviewed and no additional complaints, except as documented *Musculoskeletal Musculoskeletal: Reports as per HPI, Reports abnormal gait and Reports limited range of motion *Neurologic Neurologic: Reports abnormal gait Meds Home Medications and Allergies Home Medications Medication Instructions Recorded Confirmed Type No Known Home Medications 11/22/22 11/22/22 History New Prescriptions to Start Prescriptions: Allergies Allergy/AdvReac Type Severity Reaction Status Date / Time aspirin Allergy Severe Anaphylaxis Verified 11/22/22 01:37 diphenhydramine Allergy Verified 08/22/21 10:33 [From Benadryl] ibuprofen Allergy Verified 08/22/21 10:33 morphine Allergy Verified 08/22/21 10:33 moxifloxacin [From Avelox] Allergy Verified 08/22/21 10:33 vancomycin Allergy Verified 08/22/21 10:33 Penicillins AdvReac Verified 08/22/21 10:33 Exam Data for Last 24 hours Vital signs and Labs for Last 24 Hours: Temp Pulse Resp BP Pulse Ox O2 Del Method 98.1 F 88 18 147/86 H 98 Room Air 11/22/22 00:46 11/22/22 00:46 11/22/22 00
[2022-11-22 01:48] VITALS: BP 150/88; PULSE 88; RESP 20; TEMP 36.8; O2SAT 93; BMI 31.2
--- NOTE | 2022-11-22 02:09 | PC.NURSE ---
Pt admitted to the floor. Pt appears to have poor hygiene, and clothes are unclean. Pt states he has not been taking any medications at home, including insulin, because he has not been able to get them due to insurance issues. Care management consult ordered.
[2022-11-22 04:00] VITALS: BP 125/70; PULSE 81; RESP 20; TEMP 36.9; O2SAT 99; BMI 31.2
--- NOTE | 2022-11-22 04:17 | PC.NURSE ---
Pt states he has been unable to take any of his prescribed home medications for over a year due to having problems with his insurance. Case management consult in place.
[2022-11-22 04:36] LABS: POC Glucose,Bedside 231 (70-110)
--- NOTE | 2022-11-22 05:17 | PC.NURSE ---
Non-adherent dressing applied to ulcer on left foot. Pt denies pain.
[2022-11-22 06:37] LABS: Chloride 99 mmol/L (98-107); Potassium 3.8 mmoL/L (3.5-5.1); Sodium 133 mmol/L (136-145)
[2022-11-22 06:39] LABS: Basophils % 0.6 % (0.1-2.0); Eosinophils # 0.2 K/mm3 (0.0-0.4); Eosinophils % 2.3 % (0.1-12.0); Hematocrit 50.6 % (42.0-52.0); Hemoglobin 16.4 g/dL (14.1-18.0); Lymphocytes # 2.4 K/mm3 (0.7-4.5); Mean Corpuscular HGB Conc 32.4 g/dL (31.8-35.4); Mean Corpuscular Hemoglobin 29.9 pg (27.0-31.2); Mean Corpuscular Volume 92.2 fl (80-94); Monocytes # 0.5 K/mm3 (0.1-1.0); Monocytes % 6.4 % (1.7-9.3); Neutrophils # 4.3 K/mm3 (1.8-7.8); Neutrophils % 57.7 % (37.0-80.0); Platelet Count 125 K/mm3 (142-424); Red Blood Count 5.48 M/mm3 (4.60-6.20); Red Cell Distribution Width 13.5 % (11.5-17.5); White Blood Count 7.4 K/mm3 (4.8-10.8)
[2022-11-22 06:40] LABS: Anion Gap 11.8 mEq/L (5-15); Blood Urea Nitrogen 14 mg/dl (9-20); Calcium 9.2 mg/dl (8.4-10.2); Carbon Dioxide 26 mmol/L (22.0-30.0); Creatinine Clearance Estimated 121 mL/min (50-200); Estimated Glomerular Filt Rate 77 ml/min (>60); GFR (African American) 93 ML/MIN (>60); Glucose 220 mg/dl (74-100)
[2022-11-22 06:59] LABS: POC Glucose,Bedside 246 (70-110)
--- NOTE | 2022-11-22 07:01 | PC.NURSE ---
Pt stated insulin drops his sugar fast. Per WASTE RECLAIMER, hold insulin until pt is seen eating. Pt has refused food/snacks so far this shift, stating he does not have an appetite.
[2022-11-22 07:19] LABS: Hemoglobin A1C 10.2 % (4.0-6.0)
[2022-11-22 08:00] VITALS: BP 139/69; PULSE 74; RESP 18; TEMP 36.7; O2SAT 96
[2022-11-22 08:07] LABS: C-Reactive Protein 58.7 mg/L (0-4)
[2022-11-22 08:30] LABS: Erythrocyte Sedimentation Rate 15 mm/hr (0-20)
--- NOTE | 2022-11-22 10:53 | MR_ITS ---
FINAL REPORT CLINICAL HISTORY: DIABETIC ULCER OF FOOT FINDINGS: Multiplanar MR imaging of the left foot was performed with and without contrast. There is mild bone marrow edema in the fourth distal phalanx seen best on sagittal image #26 of series 8 with mild surrounding soft tissue edema. The findings are favored to represent acute osteomyelitis. Of the foot. No bony mass is identified. The musculature is intact. IMPRESSION: Bone marrow edema in the fourth distal phalanx as described, favored to represent acute osteomyelitis in the distal phalanx of the fourth digit. Reviewed, Interpreted and Dictated by Gilberto uQan MD Transcribed by Yuliana Huitron Authenticated and [facility]
--- NOTE | 2022-11-22 11:01 | DIET.NUTRFU ---
Addendum entered by Bobbi Blum RD, LD 11/22/22 14:47: Patient declined interview with this RD unable to access nutritional status. Will continue diabetic diet with prostat AWC BID Original Note: RD consulted secondary to pressure ulcer on L foot to 4th toe, patient has been non complaint with DM medication regimen due to insurance. flower shop manager aware. Patient needs increase protein needs to improve healing. Started prostat AWC BID to provide additional 34gm protein, 200kcal along with vitamin C, zinc and arginine to promote healing. Will continue to follow and access po intake.
[2022-11-22 11:06] VITALS: BMI 31.2
--- NOTE | 2022-11-22 11:25 | HMH.PTWOUND ---
Rehab Inpt Wound Evaluation Rehab IP Wound Evaluation Start: 11/22/22 02:21 Freq: ONCE Status: Active Protocol: Document 11/22/22 10:00 PHOMYRA (Rec: 11/22/22 11:25 PHORNE [id number]) Rehab PT Wound Assessment Subjective Subjective 57 yowm adm to [facility] with L foot DFU, likely gangrenous in nature. He has hx of HTN, HLD, COPD, R BKA, and uncontrolled DM. Questionable living situation, but he was independent with all mobility prior to adm with w/c (which is in SIGNIFICANT state of disrepair). He does have a R LE prosthesis per his report, but is currently unable to don it due to R LE swelling. Wound Left Toe - 4th Digit Wound Type Diabetic Foot Ulcer Is This a Chronic Wound Yes Wound Length (cm) 5.2 Wound Width (cm) 1.7 Wound Bed Appearance Eschar,Peeling Skin,Necrotic Percentage of Eschar (Black) (%) 100 Wound Margins Description Well Defined Surrounding Tissue Appearance Bright Red Wound Drainage Description Purulent Drainage Amount Scant Drainage Odor Slight Odor Wound Topical Solution/Irrigant Saline Irrigant,Antibiotic Irrigant Primary Dressing Gauze Pad Comment betadine soaked gauze Wound Secondary Dressing Type Gauze Roll/Wrap Wound Debridement Method Gauze,Mechanical Wound Debridement Amount of Tissue Minimal Removed Dressing Change Patient Tolerance Tolerated Well Plan/Recommendation Comment Unable to completely ascertain wound depth due to eschar throughout the surface. Foul odor, black tissue coloration, and significant necrotic tissue would suggest wet gangrene is present. Wound dressed as above and should be changed daily by nursing staff unless directed differently by surgical surfaces pending further work- up and consults. Eval Complexity Eval Charge Codes 72898 - High Complexity PHYSICIAN CERTIFICATION: I certify the specified therapy services for Aryan Alcantar are required,
--- NOTE | 2022-11-22 12:02 | CARE MANAGER ---
PT and patient state his wheelchair is falling apart. I contacted [facility] where he obtained his wheelchair and they state he just got it in 2021 and they are unable to replace it via insurance until it has been 5 years. He can rent a new one for $50/month or pay for a new one $370/month. Will follow up with patient to see if there is something in particular that needs to be repaired on it or possible other options.
--- NOTE | 2022-11-22 15:36 | SW/DCPLANNER ---
I attempted to speak with this patient regarding discharge plans: patient is asleep and unable to answer any questions at this time.
[2022-11-22 16:00] VITALS: BP 129/64; PULSE 76; RESP 18; TEMP 36.8; O2SAT 96
[2022-11-22 16:40] LABS: POC Glucose,Bedside 157 (70-110)
--- NOTE | 2022-11-22 18:50 | PC.NURSE ---
patient has done well. refused meals earlier in day. did eat all of his supper. will need to be npo at midnight and was relayed this. has been independent in room. did leave floor with family to get things out of car. md is aware of this, and iv was wrapped up dressing in place on foot. mri was done. rings out as needed.
[2022-11-22 20:00] VITALS: BP 139/77; PULSE 91; RESP 16; TEMP 36.6; O2SAT 98
[2022-11-22 23:48] LABS: POC Glucose,Bedside 233 (70-110)
[2022-11-23] VITALS (28 sets, daily range): BP systolic 90–147; BP diastolic 62–86; PULSE 61–84; RESP 14–23; TEMP 36.3–36.8; O2SAT 93–99; BMI 31.1
--- NOTE | 2022-11-23 | IR_ITS ---
APPROVED REPORT Patient Location: Inpatient Salesperson Hosiery: KAT Spivey RT (R) PROCEDURES Right femoral arterial access Catheter placed in the left common iliac artery Left common iliac artery antegrade angiogram Catheter placed in the left common iliac artery Left common iliac artery antegrade angiogram with unilateral runoff to the left foot Shockwave lithotripsy to the left popliteal artery Drug-coated balloon angioplasty to the left popliteal artery extending back into the left superficial femoral artery INDICATION [place] claudication class V and , Limb threatening ischemia, Necrotic left toe requiring amputation, Peripheral artery disease, Dense calcification of the left popliteal artery Informed consent was obtained prior to the procedure. COMPLICATIONS None Estimated Blood Loss: Less than 10 ml TECHNIQUE 1% lidocaine used anesthetize right groin the right coronary successfully the Salinger technique and a 5 [place] sheath is placed in the right femoral artery. A rim catheter was advanced to the left common iliac artery where left common iliac artery antegrade angiography was performed. Using a long advantage wire and fluoroscopic guidance the rim catheter was advanced to the left common femoral artery where antegrade angiography with unilateral runoff to the left foot was performed. Following this a long advantage wire was advanced into the left superficial femoral artery and the rim catheter and 5 [place] sheath were exchanged for a 6 [place] long destination sheath. Following this therapeutic ACT was administered giving a therapeutic ACT. 300 cm Choice PT extra-support wire was placed in the popliteal artery where a 6 mm x 60 mm shockwave balloon was deployed at 6, 8 and 10 pete for a full 300 pulsations. Following this a 6 mm x 120 mm drug-coated balloon was deployed at 10 pete for 3 minutes further reducing the stenosis. Excellent angiographic results were obtained with the critical greater than 90% stenosis being reduced to less than 10% with lithotripsy and drug-coated balloon angioplasty. At the end the procedure the apparatus was removed the groin is reprepped closure change sheath was removed good hemostasis was achieved using Perclose device patient was transferred to the postop putting in stable condition ANGIOGRAPHIC RESULTS Left common internal and external iliac arteries are widely patent Left common femoral artery is widely patent in the proximal segment has a calcified eccentric 50% stenosis in the distal segment immediately proximal to the origin of the superficial femoral artery. The left profunda femoris artery is widely patent Left superficial femoral artery is widely patent with diffuse 30% atheromatous plaque. The left popliteal artery has a focal concentric calcified greater than 90% stenosis. Distally the anterior posterior tibialis artery are widely patent with antegrade flow into the left foot as is the peroneal artery. IMPRESSION Critical left popliteal artery stenosis Successful intravascular lithotripsy followed by drug-coated balloon angioplasty reducing the critical greater than 90% calcified concentric stenosis to less than 10% with excellent inline flow producing three-vessel runoff below the knee PLAN 1. Xarelto 2.5 twice daily plus aspirin 81 mg daily following amputation of the great toe 2. Patient requires work-up for ischemic heart disease 3. LDL less than 55 to be achieved with high intensity statin 4. Risk factor modification Electronically signed by : Arnav Morris MD 11/23/2022 13:19:25
--- NOTE | 2022-11-23 01:38 | PC.NURSE ---
1999 DR MANCILLA CALLED REQUESTING PHOTO BE TAKEN OG PATIENTS LEFT FOOT AND TEXT IT TO HIM SO HE COULD SEE WHAT IT LOOKS LIKE. CHARGE NURSE Lucie MENDENHALL RN OBTAINED PHOTO AND SENT TO DOCTOR REQUESTES.
[2022-11-23 03:14] LABS: POC Glucose,Bedside 178 (70-110)
--- NOTE | 2022-11-23 04:05 | PC.NURSE ---
PATIENT HAS BEEN NPO SINCE [place] FOR ORTHO CONSULT. LLE DISCOLORED RED, NO EDEMA. POOR CIRCULATION. DRSG TO LEFT FOOT C/D/I. OLD RIGHT BKA STUMP INTACT. VOICES NO C/O PAIN OR DISCOMFORT.
[2022-11-23 05:33] LABS: POC Glucose,Bedside 178 (70-110)
[2022-11-23 06:20] LABS: Basophils % 0.5 % (0.1-2.0); Eosinophils # 0.2 K/mm3 (0.0-0.4); Eosinophils % 2.4 % (0.1-12.0); Hematocrit 46.5 % (42.0-52.0); Hemoglobin 15.6 g/dL (14.1-18.0); Lymphocytes # 2.2 K/mm3 (0.7-4.5); Lymphocytes % 32.5 % (10-50); Mean Corpuscular HGB Conc 33.5 g/dL (31.8-35.4); Mean Corpuscular Hemoglobin 30.4 pg (27.0-31.2); Mean Corpuscular Volume 90.7 fl (80-94); Mean Platelet Volume 10.4 fl (7.4-10.4); Monocytes # 0.4 K/mm3 (0.1-1.0); Monocytes % 6.4 % (1.7-9.3); Neutrophils % 58.2 % (37.0-80.0); Platelet Count 115 K/mm3 (142-424); Red Blood Count 5.12 M/mm3 (4.60-6.20); Red Cell Distribution Width 13.5 % (11.5-17.5); White Blood Count 6.9 K/mm3 (4.8-10.8)
[2022-11-23 06:27] LABS: Chloride 102 mmol/L (98-107); Potassium 3.7 mmoL/L (3.5-5.1); Sodium 135 mmol/L (136-145)
[2022-11-23 06:29] LABS: Alanine Aminotransferase 22 U/L (12-78); Blood Urea Nitrogen 15 mg/dl (9-20); Creatinine Clearance Estimated 120 mL/min (50-200); Estimated Glomerular Filt Rate 77 ml/min (>60); GFR (African American) 93 ML/MIN (>60)
[2022-11-23 06:30] LABS: Albumin Level 3.4 g/dl (3.5-5.0); Albumin/Globulin Ratio 1.1 (1.1-1.8); Alkaline Phosphatase 86 U/L (38-126); Anion Gap 11.7 mEq/L (5-15); Aspartate Amino Transferase 19 U/L (17-59); Bilirubin,Total 0.5 mg/dl (0.2-1.3); Calcium 8.9 mg/dl (8.4-10.2); Carbon Dioxide 25 mmol/L (22.0-30.0); Glucose 195 mg/dl (74-100); Magnesium 1.7 mg/dl (1.6-2.3); Total Protein,Serum 6.4 g/dl (6.3-8.2)
--- NOTE | 2022-11-23 10:11 | EXP.CARD.CON ---
History of Present Illness History of Present Illness Consult date: 11/23/22 Requesting physician: Eleazar Fleming Chief complaint: Peripheral artery disease, diabetic foot wound History of present illness: 57 year old male past medical history of previous right lower extremity amputation mid hall secondary to vascular disease and infection, DM, HLD, HTN, tobacco abuse and COPD presented to the ED for c/o left foot swelling. Over the last 7 days patient has had progressive discoloration of his left fourth toe which has since sloughed off over the last 24 to 48 hours. He has had progressive erythema and swelling over his left foot. Lab work was obtained prior to ED visit at PCP. Pt presented to ED straight from PCP office. Hematologic labs show no leukocytosis, no critical electrolyte abnormalities. Elevated CRP is noted. Patient denies fevers, other acute complaints at this time. Due to insurance he not been able to have his medications filled or taken. He received a CT of his LLE in the ED which revealed multifocal arterial stenoses with distal three-vessel runoff. Cardiology asked to consult for peripheral artery disease [facility] Disclaimer: The information contained in this section may have been updated after the patient was seen, as this information can be updated by other users. Medical History (Updated 11/22/22 @ 15:35 by Eleazar Fleming MD) Asthma Cataract Diabetes mellitus type 1 Glaucoma Surgical History (Updated 11/22/22 @ 02:02 by Ina Sanchez RN) Hx of right BKA Social History (Updated 11/22/22 @ 02:02 by Ina Sanchez RN) Smoking Status: Current every day smoker tobacco type: cigarettes packs per day: 1 second hand exposure: Yes alcohol intake: never substance use type: denies use current occupational status: disabled Travel in the last 8 weeks: None household members: spouse housing: apartment current occupational exposures/hazards: No caffeine: No Review of Systems *Cardiovascular Cardiovascular: Denies chest pain and Denies dyspnea *Respiratory Respiratory: Denies dyspnea *Musculoskeletal Musculoskeletal: Reports abnormal gait Comments: Left lower extremity pain *Neurologic Neurologic: Reports abnormal gait Exam Data for Last 24 hours Vital signs and Labs for Last 24 Hours: Temp Pulse Resp BP Pulse Ox O2 Del Method 97.7 F 70 18 122/70 95 Room Air 11/23/22 08:00 11/23/22 08:00 11/23/22 08:00 11/23/22 08:00 11/23/22 08:00 11/23/22 08:00 Laboratory Results - last 24 hr 11/22/22 16:31: POC Glucose 157 H 11/22/22 21:12: POC Glucose 233 H 11/23/22 03:07: POC Glucose 178 H 11/23/22 05:23: POC Glucose 178 H 11/23/22 06:02: WBC 6.9, RBC 5.12, Hgb 15.6, Hct 46.5, MCV 90.7, MCH 30.4, MCHC 33.5, RDW 13.5, Plt Count 115 L, MPV 10.4, Neut % (Auto) 58.2, Lymph % (Auto) 32.5, [place] % (Auto) 6.4, Eos % (Auto) 2.4, Baso % (Auto) 0.5, Neut # (Auto) 4.0, Lymph # (Auto) 2.2, [place] # (Auto) 0.4, Eos # (Auto) 0.2, Baso # (Auto) 0.0, Sodium 135 L, Potassium 3.7, Chloride 102, Carbon Dioxide 25, Anion Gap 11.7, BUN 15, Creatinine 1.00, Estimated Creat Clear 120, Estimated GFR 77, Est GFR ( Amer) 93, Glucose 195 H, Calcium 8.9, Magnesium 1.7, Total Bilirubin 0.5, AST 19 D, ALT 22 D, Alkaline Phosphatase 86, Total Protein 6.4, Albumin 3.4 L D, Globulin 3.0, Albumin/Globulin Ratio 1.1 I & O for Last 24 hours: Intake & Output 11/20/22 11/21/22 11/22/22 11/23/22 23:59 23:59 23:59 23:59 Intake Total 470 / 1077 893 / 893 Output Total 1350 / 1350 1350 / 1350 Balance -880 / -273 -457 / -457 Weight 250 lb 230 lb 14.242 oz 230 lb 6.4 oz Constitutional Constitutional: no acute distress *Routine Respiratory Exam Respiratory: Present CTA bilaterally and symmetric chest movement *Routine Cardiovascular Exam Cardiovascular: Present RRR, Normal S1 and Normal S2 *Routine Abdominal Exam Abdominal: Present soft and normoactive bowel sounds; Absent tenderness *Ro
--- NOTE | 2022-11-23 10:16 | PC.NURSE ---
courtesy tech note: pt rounded on. no needs verbalized at this time. call light within reach.
--- NOTE | 2022-11-23 10:56 | SW/DCPLANNER ---
I spoke with patient this AM regarding plans once medically stable for discharge. PT/OT evaluated patient and recommended placement. Patient stated that he resides at home with friends/family and someone is home with him 24-7. Patient stated that he has had several conversations regarding placement in the past and is not interested in SNF level of care. Patient stated that he feels safe to return home at time of discharge. Patient also voiced that he is NOT interested in home health services at time of discharge. I will continue to follow up with this patient and discussing safe discharge plans. Discharge date is unknown at this time.
[2022-11-23 13:21] LABS: CATHL Activated Clotting Time 274 SEC (74-125)
--- NOTE | 2022-11-23 13:52 | P.PNANES_ITS ---
Documented by User: Brittany Vasquez CRNA 11/27/22 07:08 [facility] Disclaimer: The information contained in this section may have been updated after the patient was seen, as this information can be updated by other users. Medical History Asthma Cataract Diabetes mellitus type 1 Glaucoma Surgical History Hx of right BKA Social History Smoking Status: Current every day smoker tobacco type: cigarettes packs per day: 1 second hand exposure: Yes alcohol intake: never substance use type: denies use current occupational status: disabled Travel in the last 8 weeks: None household members: spouse housing: apartment current occupational exposures/hazards: No caffeine: No [facility] Anesthesia Checklist Patient Identification Patient Identification: Arm Band and Verbal (Name & ) Structural Data Admitted From: Home Planned Operative Procedure/s: pain pump Verified Documents: Surgical Consent NPO Status Verified Time NPO: 06:45 Additional verifications Fingerstick Blood Glucose: 173 Anesthesia Reactions: No Hx Blood Transfusions: No Blood Transfusion Reaction: No Airway Assessment Mallampati Score:: Class II Dentition: Good Dentition Neurological Assessment Level of Consciousness: Awake and Sedated Anesthesia Plan Anesthesia Risk discussed: Yes ASA Class: III Anesthesia Type: General Documented by User: Virginia Cano CRNA 11/23/22 14:35 [facility] Medical History Asthma Cataract Diabetes mellitus type 1 Glaucoma Surgical History Hx of right BKA Social History Smoking Status: Current every day smoker tobacco type: cigarettes packs per day: 1 second hand exposure: Yes alcohol intake: never substance use type: denies use current occupational status: disabled Travel in the last 8 weeks: None household members: spouse housing: apartment current occupational exposures/hazards: No caffeine: No [facility] Anesthesia Checklist Structural Data Planned Operative Procedure/s: Toe amputation Consent for Planned Operative Procedure(s) Verified: Yes Airway Assessment C-Spine Mobility Assessed: Yes TMJ Mobility Assessed: Yes Neurological Assessment Hx Seizures: No Numbness or tingling in extremities: Yes Anesthesia Plan Anesthesia Plan: Verified Anesthesia Type: MAC
--- NOTE | 2022-11-23 14:27 | SUR.PREOP ---
Dr. Freed at bedside.
--- NOTE | 2022-11-23 15:22 | XR_ITS ---
FINAL REPORT CLINICAL HISTORY: LT TOE AMPUTATION IN OR FINDINGS: FLUOROSCOPY LESS THAN 1 HOUR HISTORY: Fluoroscopy guidance. FINDINGS: Fluoroscopic guidance was provided for left toe amputation in the OR. 2 spot films were obtained. 0.1 minute of fluoroscopy time were used. Total DAP: 0.37 mGy IMPRESSION: As above. Reviewed, Interpreted and Dictated by Gilberto Quan MD Transcribed by Maryam Gallardo Authenticated and . [facility]
--- NOTE | 2022-11-23 15:43 | EXP.ANES.I ---
[facility] Anesthesia Record Part I Anesthesia Record I Intake, IV Amount: 400 Hydration: Adequate Estimated blood loss (mL): 5 Urine output (mL): 0 Blood Products used (#): none Blood Pressure: 90/63 SaO2: 99 Pulse Rate: 61 Airway Patency: Patent Respiratory Rate: 23 Temperature: 97.4 F Patient is:: Drowsy and Oral/Nasal airway Stable to PACU at:: 14:43
--- NOTE | 2022-11-23 15:51 | SUR.OPER ---
900 mg clindamycin given iv per Joseph [employer] @[id number]
--- NOTE | 2022-11-23 16:01 | EXP.ORTH.CON ---
History of Present Illness *Admission Date: 11/22/22 *History of present illness: 57 year old male presented to the ED for c/o left foot swelling. 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 Over the last 7 days patient has had progressive discoloration of his left fourth toe which has since sloughed off over the last 24 to 48 hours. He has had progressive erythema and swelling over his left foot. Lab work was obtained prior to ED visit at PCP. Pt presented to ED straight from PCP office. Hematologic labs show no leukocytosis, no critical electrolyte abnormalities. Elevated CRP is noted. Patient denies fevers, other acute complaints at this time. Due to insurance he not been able to have his medications filled or taken. He received a CT of his LLE in the ED which revealed multifocal arterial stenoses with distal three-vessel runoff. No evidence of NSTI, no osteomyelitis. The Xray of his LLE revealed mild dorsal soft tissue edema of the left foot. He received Invanz 1 gm and clindamycin 900 mg after having blood cultures obtained. The ED physician consulted the hospitalist for further medical management. The pt was admitted to the medical floor. He is hemodynamically stable. He uses a wheelchair at home for ambulation. He does state he has a prosthetic for his right ankle but is unable to currently wear it due to swelling. He will have a podiatry consult placed for the morning. [facility] Disclaimer: The information contained in this section may have been updated after the patient was seen, as this information can be updated by other users. Medical History Asthma Cataract Diabetes mellitus type 1 Glaucoma Surgical History Hx of right BKA Social History Smoking Status: Current every day smoker tobacco type: cigarettes packs per day: 1 second hand exposure: Yes alcohol intake: never substance use type: denies use current occupational status: disabled Travel in the last 8 weeks: None household members: spouse housing: apartment current occupational exposures/hazards: No caffeine: No Review of Systems *Musculoskeletal Musculoskeletal: Reports abnormal gait *Neurologic Neurologic: Reports abnormal gait Meds Home Medications and Allergies Home Medications Medication Instructions Recorded Confirmed Type No Known Home Medications 11/22/22 11/22/22 History New Prescriptions to Start Prescriptions: Allergies Allergy/AdvReac Type Severity Reaction Status Date / Time aspirin Allergy Severe Anaphylaxis Verified 11/22/22 01:37 diphenhydramine Allergy Verified 08/22/21 10:33 [From Benadryl] ibuprofen Allergy Verified 08/22/21 10:33 morphine Allergy Verified 08/22/21 10:33 moxifloxacin [From Avelox] Allergy Verified 08/22/21 10:33 vancomycin Allergy Verified 08/22/21 10:33 Penicillins AdvReac Verified 08/22/21 10:33 Ortho Exam (Inpt) Vital signs and Labs for Last 24 Hours: Temp Pulse Resp BP Pulse Ox O2 Del Method 97.4 F L 68 16 113/64 99 Room Air 11/23/22 15:44 11/23/22 15:53 11/23/22 15:53 11/23/22 15:53 11/23/22 15:53 11/23/22 15:53 Laboratory Results - last 24 hr 11/22/22 16:31: POC Glucose 157 H 11/22/22 21:12: POC Glucose 233 H 11/23/22 03:07: POC Glucose 178 H 11/23/22 05:23: POC Glucose 178 H 11/23/22 06:02: WBC 6.9, RBC 5.12, Hgb 15.6, Hct 46.5, MCV 90.7, MCH 30.4, MCHC 33.5, RDW 13.5, Plt Count 115 L, MPV 10.4, Neut % (Auto) 58.2, Lymph % (Auto) 32.5, [place] % (Auto) 6.4, Eos % (Auto) 2.4, Baso % (Auto) 0.5, Neut # (Auto) 4.0, Lymph # (Auto) 2.2, [place] # (Auto) 0.4, Eos # (Auto) 0.2, Baso # (Auto) 0.0, Sodium 135 L, Potassium 3.7, Chloride 102, Carbon Dioxide 25, Anion Gap 11.7, BUN 15, Creatinine
--- NOTE | 2022-11-23 16:02 | SUR.PHASEI ---
1543- dressing noted to right groin. Covered w/4x4s and tegaderm. C/D/I.
--- NOTE | 2022-11-23 16:03 | P.OP_ITS ---
Date of procedure: 11/23/22 Pre-op Diagnosis:: left 4th toe dry gangrene/plantar wound Post-op Diagnosis:: Same Procedure performed:: 52516 Surgeon:: Tanner Freed JR, MD TITLE INSPECTOR:: Virginia Cano Anesthesia: GETA Estimated blood loss (mL): 5 Clinical Note:: 57-year-old male with left fourth toe gangrene, osteomyelitis, diabetes, peripheral vascular disease. He is status post angioplasty today. I had a discussion with him regarding further management and after discussion of risk, benefits, alternatives, he wished to proceed with left fourth ray amputation with possible wound vacuum-assisted closure. We discussed the risk and benefits of surgery. Risks included but were not limited to pain, bleeding, infection, damage to adjacent structures, need for further surgery, wound healing complications, loss of limb, . Patient expressed verbal consent and [facility] consent was obtained for the above procedure. Operative findings:: Able to achieve primary closure Operative note:: Patient was identified in preoperative holding. Operative site was marked in indelible ink. History, physical, consent were reviewed and updated. Patient was surrendered to the anesthesia team, taken to the operative suite, placed supine on a well-padded operative table. Anesthesia was induced. The operative extremity was prepped and draped in the usual sterile fashion. The operative team donned sterile gowns and gloves and a timeout was called. All in attendance agreed regarding the patient's identity, procedure, operative site. Weight-based dose of antibiotics was given prior to incision. I examination the operative extremity and left an Esmarch bandage in place to serve as a tourniquet. This was removed at the end of the case. I made a longitudinal incision along the fourth ray, incorporated a racquet type incision about the fourth toe, incorporating the plantar devitalized tissue. I dissected sharply down to bone, removed the fourth toe, dissected more proximally, transected the fourth metatarsal and remove the distal aspect as well as the plantar plate which I sent for pathology. This was confirmed fluoroscopically. I took swab specimens of the wound, copiously irrigated with Irrisept and saline. I was able to primarily close the incision with monofilament suture. Sterile dressings applied. Counts were correct x2. There were no apparent complications. I was present and scrubbed for the entire case. Condition: stable Disposition: PACU Specimens:: Amputated toe, soft specimen sent for culture Complications:: None apparent
--- NOTE | 2022-11-23 17:16 | EXP.ACUTE.PN ---
Subjective *Date: 11/23/22 *Time: 17:35 Interval history: Patient n.p.o. this morning. Denies any chest pain or shortness of breath. Tolerating antibiotics without side effects. Going for left lower extremity runoff and angioplasty with cardiology with subsequent surgery with orthopedics today. Patient is afebrile and hemodynamically stable this morning on room air. Denies any nausea or vomiting. Discussions during rounds, he does not want to go to rehab after surgery. Is planning to go home. Has caregivers that can assist him at home. Medical Exam Vital signs and Labs for Last 24 Hours: Vital Signs Temp Pulse Pulse Resp BP BP BP 11/23/22 16:15 97.5 F L 68 16 134/77 11/23/22 16:03 67 16 124/78 11/23/22 15:53 68 16 113/64 11/23/22 15:43 97.9 F 61 16 90/63 L 11/23/22 13:55 69 14 127/81 11/23/22 14:10 70 16 147/86 H 11/23/22 13:40 97.3 F L 72 14 139/77 11/23/22 13:30 69 18 117/69 11/23/22 13:25 71 18 116/70 11/23/22 13:20 71 18 111/65 11/23/22 13:29 72 11/23/22 13:15 71 18 115/69 11/23/22 08:00 11/23/22 11:00 11/23/22 09:00 11/23/22 08:00 97.7 F 70 18 122/70 11/23/22 06:29 11/23/22 04:00 98 F 73 16 112/62 11/23/22 04:52 11/23/22 03:00 11/23/22 01:00 11/22/22 23:00 11/22/22 21:00 11/22/22 20:00 11/22/22 20:00 98 F 91 H 16 139/77 11/23/22 15:44 97.4 F L 61 23 90/63 L Pulse Ox O2 Del Method 11/23/22 16:15 98 Room Air 11/23/22 16:03 96 Room Air 11/23/22 15:53 99 Room Air 11/23/22 15:43 99 Room Air 11/23/22 13:55 93 L Room Air 11/23/22 14:10 99 Room Air 11/23/22 13:40 97 Room Air 11/23/22 13:30 95 11/23/22 13:25 98 11/23/22 13:20 98 11/23/22 13:29 11/23/22 13:15 98 11/23/22 08:00 Room Air 11/23/22 11:00 Room Air 11/23/22 09:00 Room Air 11/23/22 08:00 95 Room Air 11/23/22 06:29 Room Air 11/23/22 04:00 94 L 11/23/22 04:52 Room Air 11/23/22 03:00 Room Air 11/23/22 01:00 Room Air 11/22/22 23:00 Room Air 11/22/22 21:00 Room Air 11/22/22 20:00 98 Room Air 11/22/22 20:00 98 Room Air 11/23/22 15:44 Intake and Output 11/23/22 11/23/22 11/23/22 07:59 15:59 23:59 Intake Total 893 / 1293 400 / 1293 Output Total 600 / 1350 750 / 1350 Balance 293 / -57 -350 / -57 Intake: Intake, Oral Amount 360 / 360 Intake, Total IV Amount 533 / 933 400 / 933 Clindamycin Phosphate/D5w 900 100 / 100 mg In 50 ml @ 100 mls/hr IV Q6H NENITA Rx#:[id number] Dex 5% in 0.45% NaCl 1,000 ml @ 383 / 383 50 mls/hr IV .Q20H NENITA Rx#: [id number] Ertapenem Sodium 1 gm In 0.9 % 50 / 50 Sodium Chloride 50 ml @ 100 mls /hr IV Q24H NENITA Rx#:[id number] Output: Output, Urine Amount 600 / 1350 750 / 1350 Other: Number of Unmeasured Voids 1 Weight 104.508 kg Patient Weight 11/23/22 23:59 Weight 104.508 kg Laboratory Results - last 24 hr 11/22/22 21:12: POC Glucose 233 H 11/23/22 03:07: POC Glucose 178 H 11/23/22 05:23: POC Glucose 178 H 11/23/22 06:02: WBC 6.9, RBC 5.12, Hgb 15.6, Hct 46.5, MCV 90.7, MCH 30.4, MCHC 33.5, RDW 13.5, Plt Count 115 L, MPV 10.4, Neut % (Auto) 58.2, Lymph % (Auto) 32.5, [place] % (Auto) 6.4, Eos % (Auto) 2.4, Baso % (Auto) 0.5, Neut # (Auto) 4.0, Lymph # (Auto) 2.2, [place] # (Auto) 0.4, Eos # (Auto) 0.2, Baso # (Auto) 0.0, Sodium 135 L, Potassium 3.7, Chloride 102, Carbon Dioxide 25, Anion Gap 11.7, BUN 15, Creatinine 1.00, Estimated Creat Clear 120, Estimated GFR 77, Est GFR ( Amer) 93, Glucose 195 H, Calcium 8.9, Magnesium 1.7, Total Bilirubin 0.5, AST 19 D, ALT 22 D, Alkaline Phosphatase 86, Total Protein 6.4, Albumin 3.4 L D, Globulin 3.0, Albumin/Globulin Ratio 1.1 11/23/22 12:59: Activated Clotting Time 274 H* I & O for Labs for Last 24 Hours: Intake & Output 11/20
[2022-11-23 18:46] LABS: POC Glucose,Bedside 159 (70-110)
--- NOTE | 2022-11-23 19:13 | PC.NURSE ---
CONTACTED DR MANCILLA REGARDING PT BLEEDING FROM OPERATIVE SITE AFTER HE TRIED TO GET UP TO WHEELCHAIR. DR MANCILLA V/O TO REMOVE DRESSING AND ASSESS STITCHES AND REDRESS WITH DRY DRESSING. DURING DRESSING CHANGE BLEEDING HAD STOPPED AND STITCHES WERE STILL IN PLACE.
[2022-11-23 20:28] LABS: POC Glucose,Bedside 269 (70-110)
[2022-11-24 04:00] VITALS: BP 147/79; PULSE 85; RESP 19; TEMP 37.1; O2SAT 94; BMI 31.6
--- NOTE | 2022-11-24 04:27 | PC.NURSE ---
patient has not had any more bleeding episodes from the operative site. HAS KEPT LLE ELEVATED ON PILLOW. DRSG AND LIVE WRAP C/D/I. VITAL SIGNS STABLE/AFEBRILE. ,OFFERS NO COMPLAINTS OF PAIN OR DISCOMFORT. BED ALARM IN USE.
[2022-11-24 05:10] LABS: POC Glucose,Bedside 187 (70-110)
[2022-11-24 07:46] LABS: Basophils % 0.5 % (0.1-2.0); Eosinophils # 0.2 K/mm3 (0.0-0.4); Eosinophils % 2.9 % (0.1-12.0); Hematocrit 46.2 % (42.0-52.0); Hemoglobin 15.4 g/dL (14.1-18.0); Lymphocytes # 1.8 K/mm3 (0.7-4.5); Mean Corpuscular HGB Conc 33.2 g/dL (31.8-35.4); Mean Corpuscular Hemoglobin 30.2 pg (27.0-31.2); Mean Corpuscular Volume 90.9 fl (80-94); Mean Platelet Volume 10.1 fl (7.4-10.4); Monocytes # 0.6 K/mm3 (0.1-1.0); Monocytes % 7.2 % (1.7-9.3); Neutrophils # 5.3 K/mm3 (1.8-7.8); Neutrophils % 66.3 % (37.0-80.0); Platelet Count 130 K/mm3 (142-424); Red Blood Count 5.09 M/mm3 (4.60-6.20); Red Cell Distribution Width 13.5 % (11.5-17.5)
[2022-11-24 07:59] VITALS: BP 125/74; PULSE 78; RESP 18; TEMP 37; O2SAT 94
[2022-11-24 08:08] LABS: Chloride 105 mmol/L (98-107); Potassium 4.2 mmoL/L (3.5-5.1); Sodium 138 mmol/L (136-145)
[2022-11-24 08:11] LABS: Alanine Aminotransferase 24 U/L (12-78); Albumin Level 3.3 g/dl (3.5-5.0); Albumin/Globulin Ratio 1.1 (1.1-1.8); Alkaline Phosphatase 88 U/L (38-126); Anion Gap 13.2 mEq/L (5-15); Aspartate Amino Transferase 25 U/L (17-59); Bilirubin,Total 0.4 mg/dl (0.2-1.3); Blood Urea Nitrogen 15 mg/dl (9-20); Calcium 8.9 mg/dl (8.4-10.2); Carbon Dioxide 24 mmol/L (22.0-30.0); Creatinine Clearance Estimated 122 mL/min (50-200); Estimated Glomerular Filt Rate 77 ml/min (>60); GFR (African American) 93 ML/MIN (>60); Glucose 162 mg/dl (74-100); Total Protein,Serum 6.3 g/dl (6.3-8.2)
[2022-11-24 08:16] LABS: Magnesium 1.8 mg/dl (1.6-2.3)
[2022-11-24 08:20] LABS: C-Reactive Protein 43.1 mg/L (0-4)
[2022-11-24 08:45] LABS: Erythrocyte Sedimentation Rate 58 mm/hr (0-20)
--- NOTE | 2022-11-24 09:29 | EXP.DC.SUM ---
General Admission date:: 11/22/22 Discharge date: 11/24/22 HPI HPI HPI: 57 year old male presented to the ED for c/o left foot swelling. 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 Over the last 7 days patient has had progressive discoloration of his left fourth toe which has since sloughed off over the last 24 to 48 hours. He has had progressive erythema and swelling over his left foot. Lab work was obtained prior to ED visit at PCP. Pt presented to ED straight from PCP office. Hematologic labs show no leukocytosis, no critical electrolyte abnormalities. Elevated CRP is noted. Patient denies fevers, other acute complaints at this time. Due to insurance he not been able to have his medications filled or taken. He received a CT of his LLE in the ED which revealed multifocal arterial stenoses with distal three-vessel runoff. No evidence of NSTI, no osteomyelitis. The Xray of his LLE revealed mild dorsal soft tissue edema of the left foot. He received Invanz 1 gm and clindamycin 900 mg after having blood cultures obtained. The ED physician consulted the hospitalist for further medical management. The pt was admitted to the medical floor. He is hemodynamically stable. He uses a wheelchair at home for ambulation. He does state he has a prosthetic for his right ankle but is unable to currently wear it due to swelling. He will have a podiatry consult placed for the morning. Hospital Course Hospital Course Hospital Course: 57 year old male presented to the ED for c/o left foot swelling. Over the last 7 days patient has had progressive discoloration of his left fourth toe which has since sloughed off over the last 24 to 48 hours. He has had progressive erythema and swelling over his left foot. Lab work was obtained prior to ED visit at PCP. Pt presented to ED straight from PCP office. Blood work shows no leukocytosis, no electrolyte abnormalities. Elevated CRP is noted. MRI obtained yesterday showing osteomyelitis of the distal fourth phalange E on his left foot. Discussed case with cardiology and orthopedic surgery. Cardiology consulted for runoff and orthopedic consulted for amputation. Patient taken for angioplasty of left lower extremity arteries. Amputation of left foot fourth digit performed. Stable for discharge home with close follow-up as an outpatient. Will complete antibiotics for cellulitis. Multiple discussions about home health versus rehab and placement/SNF versus home with family and patient elected to go home with family. Problems addressed as follows: OSTEOMYELITIS DIABETIC FOOT INFECTION PAD -Admitted for redness and swelling of left foot. Found to have osteomyelitis of distal phalange fourth digit left foot along with cellulitis. Orthopedics was consulted and assisted with care via amputation. Cardiology was consulted due to peripheral artery disease on CTA. Runoff performed showing stenosis of the popliteal which was opened via drug-coated balloon angioplasty. Achieved improved blood flow. Tolerated amputation well. Patient's leukocytosis on presentation normalized by day of discharge. Initially on Invanz and clindamycin due to his allergies. Transitioned to Bactrim to complete 10-day course for cellulitis as source control was achieved with amputation of the toe. Plan for close follow-up with orthopedics in the next 10 days for wound evaluation. Patient provided with cam walker boot to offload his left foot. Strongly recommended nonweightbearing however patient uses his left foot to transfer, CAM Walker will make it safer for him to put pressure on his heel and protect surgical wound. Daily dressing changes. No significant pain at wound site. Of note, initiated on low-dose Xarelto for continued anticoagulation due to peripheral artery disease and PCI. Patient unable to tolerate aspirin due to allergy/anaphylaxis DM -SSI
[2022-11-24 12:22] LABS: POC Glucose,Bedside 149 (70-110)
--- NOTE | 2022-11-24 14:12 | P.CONPHA_ITS ---
Pharmacy Intervention Comments: DISCHARGE MEDICATION COUNSELING PROVIDED. DISCUSSED LANTUS (INSULIN PEN, FOR DIABETES, 30 UNITS SQ AT BEDTIME, INJECT UNDER THE SKIN WITH PEN NEEDLE, DIAL UP 30 UNITS ON PEN AND INJECT, REVIEWED APPROPRIATE INJECTION SITES), XARELTO (BLOOD THINNER, TWICE DAILY, BLEED/BRUISE RISK, GO TO ER IF BLEEDING OCCURS), BACTRIM (ANTIBIOTIC, TWICE DAILY, TAKE WITH FOOD, N/V/D POSSIBLE, RASH POSSIBLE, SUN SENSITIVITY). PATIENT ASKED WHAT THE BACTRIM WAS AND I TOLD HIM IT WAS AN ANTIBIOTIC, THE GENERIC IS SULFAMETHOXAZOLE/TRIMETHOPRIM, IT CONTAINS SULFUR COMPONENT BUT THAT THIS WAS NOT A LISTED ALLERGY FOR HIM, I ASSURED HIM IT WAS A DIFFERENT CLASS OF ANTIBIOTIC THAN WHAT HE IS ALLERGIC TO (VANCOMYCIN, PENIC ILLINS, MOXIFLOXACIN) AND REVIEWED ALLERGY SYMPTOMS AND TO PRESENT TO ER IF THIS OCCURS.
[2022-11-25 07:58] LABS: POC Glucose,Bedside 173 (70-110)
--- NOTE | 2022-11-26 15:16 | CARE MANAGER ---
Attempted post discharge phone interview, no answer and mailbox full.
--- NOTE | 2022-11-28 14:44 | CARE MANAGER ---
Attempted to contact patient related to hospital discharge. No VM option. MICHELLE Marshall
== END 2022-11-24 14:57 | disposition home or self-care (01) | DRG 253 ==
LOC: ER 11-22 00:36 → 2ND 11-22 06:15
PROVIDERS: Internal Medicine; Nurse Practitioner Critical Care Medicine; Orthopaedic Surgery; Admitting Provider Internal Medicine Adolescent Medicine; Emergency Provider Emergency Medicine; PCP Family Medicine; Visit Provider Internal Medicine Adolescent Medicine
DX: E11.52 Type 2 diabetes mellitus with diabetic peripheral angiopathy with gangrene (principal); I70.262 Atherosclerosis of native arteries of extremities with gangrene, left leg; M86.172 Other acute osteomyelitis, left ankle and foot; L97.528 Non-pressure chronic ulcer of other part of left foot with other specified severity; E11.628 Type 2 diabetes mellitus with other skin complications; L08.9 Local infection of the skin and subcutaneous tissue, unspecified; Z79.4 Long term (current) use of insulin; E78.2 Mixed hyperlipidemia; I50.9 Heart failure, unspecified; J44.9 Chronic obstructive pulmonary disease, unspecified; F17.210 Nicotine dependence, cigarettes, uncomplicated; I11.0 Hypertensive heart disease with heart failure
CPT/HCPCS: 28810; C9764; 36415; 73620; 73630; 73706; 73720; 76000; 80048; 80053; 82962; 83036; 83735; 85025; 85347; 85651; 86140; 87040; 87070; 87075; 87077; 87081; 87186; 87205; 88305; 88311; 99152; 99153; 99285; A9576; C1725; C1760; C1766; C1769; C1894; C2623; J1335; J1644; J3475; Q9967